=== PATIENT | male | born 1945 | race Caucasian/White ===

== ENCOUNTER → 2024-08-29 | Outpatient (CLI) | payer OTHER, SELFPAY ==
[2024-08-29 13:33] LABS: Opiate Screen,Urine Positive (Negative)
== END | disposition home or self-care (01) ==
LOC: COPL 10:34
PROVIDERS: PCP Family Medicine; Referring Provider Orthopaedic Surgery; Visit Provider Orthopaedic Surgery
DX: Z79.891 Long term (current) use of opiate analgesic (principal)
CPT/HCPCS: 80307

== ENCOUNTER 2024-09-11 13:23 | Outpatient (RCR) | payer MEDICARE, OTHER, SELFPAY ==
[2024-09-10 16:29] LABS: Basophils % (Auto) 0 % (0-2.5); Eosinophils # (Auto) 0.2 Thou/mm3 (0.0-0.5); Eosinophils % (Auto) 2 % (0-10); Hematocrit 48.9 % (41.0-53.0); Hemoglobin 16.8 g/dL (13.5-16.0); Immature Granulocytes % (Auto) 0 % (0-0); Immature Granulocytes Auto 0.02 Thou/mm3 (0.00-0.00); Lymphocytes # (Auto) 1.4 Thou/mm3 (1.0-4.8); Lymphocytes % (Auto) 17 % (10-50); Mean Corpuscular HGB Conc 34.4 g/dl (31.0-37.0); Mean Corpuscular Hemoglobin 31.1 pg (25.0-35.0); Mean Corpuscular Volume 90 fL (80-100); Monocytes # (Auto) 0.8 Thou/mm3 (0.0-0.8); Monocytes % (Auto) 10 % (0-12); Neutrophils # (Auto) 6.1 Thou/mm3 (1.8-7.7); Neutrophils % (Auto) 71 % (37-80); Nucleated Red Blood Cell % 0 /100 WBC (0); Platelet Count 218 Thou/mm3 (140-440); RDW Standard Deviation 43.6 fL (35.1-43.9); Red Blood Count 5.41 Miln/mm3 (4.50-5.90); White Blood Count 8.5 Thou/mm3 (3.8-10.6)
[2024-09-10 17:04] LABS: Carcinoembryonic Antigen 1.6 ng/mL (0.0-5.0)
[2024-09-10 17:05] LABS: Alanine Aminotransferase 20 U/L (10-49); Albumin, Serum 4.1 gm/dL (3.4-4.8); Albumin/Globulin Ratio 1.9 (1.2-2.2); Alkaline Phosphatase 74 U/L (46-116); Anion Gap 8 (7-16); Aspartate Amino Transferase 24 U/L (0-34); BUN/Creatinine Ratio 15 Ratio (12-20); Blood Urea Nitrogen 17 mg/dL (9-23); Calcium 9.4 mg/dL (8.3-10.6); Calcium (Corrected) 9.4 mg/dL (8.5-10.1); Carbon Dioxide 24.7 mMol/L (20.0-31.0); Chloride 104 mMol/L (98-107); Creatinine (Component) 1.1 mg/dL (0.6-1.3); Globulin 2.2 gm/dL (2.3-3.5); Glucose 123 mg/dL (74-106); Osmolality,Calculated 276 (275-295); Potassium 3.3 mMol/L (3.4-5.1); Sodium 137 mMol/L (136-145); Thyroid Stimulating Hormone 1.91 uIU/mL (0.55-4.78); Total Protein 6.3 gm/dL (5.7-8.2); eGFR > 60 See Note
== END 2024-09-27 23:59 | disposition home or self-care (01) ==
LOC: SCTC 13:23
PROVIDERS: PCP Family Medicine; Referring Provider Family Medicine; Visit Provider Internal Medicine Hematology & Oncology
DX: Z51.11 Encounter for antineoplastic chemotherapy (principal); C43.62 Malignant melanoma of left upper limb, including shoulder; D75.1 Secondary polycythemia
CPT/HCPCS: 36591; 80053; 82378; 84443; 85025; 96413; A4216; J1642; J9271

== ENCOUNTER → 2024-10-02 | Outpatient (CLI) | payer MEDICARE, OTHER, SELFPAY ==
[2024-10-02 17:36] LABS: Glucose Estimated Average 126 mg/dL (80-131)
[2024-10-02 17:39] LABS: Anion Gap 8 (7-16); BUN/Creatinine Ratio 18 Ratio (12-20); Blood Urea Nitrogen 21 mg/dL (9-23); Calcium 9.2 mg/dL (8.3-10.6); Carbon Dioxide 29.1 mMol/L (20.0-31.0); Chloride 104 mMol/L (98-107); Creatinine (Component) 1.2 mg/dL (0.6-1.3); Glucose 114 mg/dL (74-106); Osmolality,Calculated 285 (275-295); Potassium 4.1 mMol/L (3.4-5.1); Sodium 141 mMol/L (136-145); eGFR > 60 See Note
== END | disposition home or self-care (01) ==
LOC: COPL 16:29
PROVIDERS: PCP Family Medicine; Referring Provider Family Medicine; Visit Provider Family Medicine
DX: E11.22 Type 2 diabetes mellitus with diabetic chronic kidney disease (principal); N18.2 Chronic kidney disease, stage 2 (mild); E11.65 Type 2 diabetes mellitus with hyperglycemia
CPT/HCPCS: 36415; 80048; 83036

== ENCOUNTER 2024-10-13 06:44 | Day surgery (SDC) | payer MEDICARE, OTHER, SELFPAY ==
[2024-10-09 10:09] VITALS: BMI 26.6
--- NOTE | 2024-10-10 07:00 | EKG_ITS ---
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 : 1945 Requested By: Nish Warner Order Number: [id number] Reading MD: Nish Warner Measurements Intervals [place] Rate: 95 P: 50 NV: 221 QRS: -76 QRSD: 146 T: 74 QT: 358 QTc: 452 Interpretive Statements SINUS RHYTHM WITH FIRST DEGREE AV BLOCK RIGHT BUNDLE BRANCH BLOCK LEFT ANTERIOR FASCICULAR BLOCK POSSIBLE ANTERIOR MYOCARDIAL INFARCTION , OF INDETERMINATE AGE Compared to ECG 09/06/2023 10:25:58 Right bundle-branch block now present Left anterior fascicular block now present Ventricular premature complex(es) no longer present Intraventricular conduction delay no longer present Myocardial infarct finding still present /store/S0/[id number]
[2024-10-10 11:47] LABS: Basophils % (Auto) 0 % (0-2.5); Eosinophils # (Auto) 0.1 Thou/mm3 (0.0-0.5); Eosinophils % (Auto) 1 % (0-10); Hematocrit 49.4 % (41.0-53.0); Hemoglobin 16.9 g/dL (13.5-16.0); Immature Granulocytes % (Auto) 0 % (0-0); Immature Granulocytes Auto 0.03 Thou/mm3 (0.00-0.00); Lymphocytes # (Auto) 1.6 Thou/mm3 (1.0-4.8); Lymphocytes % (Auto) 16 % (10-50); Mean Corpuscular HGB Conc 34.2 g/dl (31.0-37.0); Mean Corpuscular Hemoglobin 31.6 pg (25.0-35.0); Mean Corpuscular Volume 93 fL (80-100); Monocytes # (Auto) 0.9 Thou/mm3 (0.0-0.8); Monocytes % (Auto) 10 % (0-12); Neutrophils # (Auto) 7.1 Thou/mm3 (1.8-7.7); Neutrophils % (Auto) 73 % (37-80); Nucleated Red Blood Cell % 0 /100 WBC (0); Platelet Count 241 Thou/mm3 (140-440); Red Blood Count 5.34 Miln/mm3 (4.50-5.90); White Blood Count 9.8 Thou/mm3 (3.8-10.6)
[2024-10-10 11:58] LABS: Anion Gap 8 (7-16); BUN/Creatinine Ratio 15 Ratio (12-20); Blood Urea Nitrogen 21 mg/dL (9-23); Calcium 9.6 mg/dL (8.3-10.6); Chloride 102 mMol/L (98-107); Creatinine (Component) 1.4 mg/dL (0.6-1.3); Estimated Creatinine Clearance 48.5 mL/min (>60); Glucose 127 mg/dL (74-106); Osmolality,Calculated 280 (275-295); Potassium 4.4 mMol/L (3.4-5.1); Sodium 138 mMol/L (136-145); eGFR 52 See Note
[2024-10-10 11:59] LABS: Partial Thromboplastin Time 25.9 Seconds (22.0-36.0); Prothrombin Time 11.2 Seconds (9.0-12.2)
[2024-10-13] VITALS (13 sets, daily range): BP systolic 117–141; BP diastolic 68–94; PULSE 62–89; RESP 1–22; TEMP 36.4–36.7; O2SAT 95–100
--- NOTE | 2024-10-13 07:31 | CHAP ---
Patient expressed gratitude for prayer before their procedure.
--- NOTE | 2024-10-13 18:54 | ESOP_ITS ---
RE: TOM ANTHONY : 1945 DATE OF OPERATION: 10/13/2024 PROCEDURES PERFORMED: 1. Diagnostic left heart cardiac catheterization, selective coronary angiogram, left ventricular angiogram, CPT 52152. 2. Ultrasound-guided access, right femoral artery. 3. Conscious sedation for 30-minute duration. DIAGNOSES: Coronary artery disease, angina pectoris, shortness of breath, abnormal stress test. HISTORY AND INDICATIONS: Mr. Anthony is a 78-year-old male with known history of mild CKD, stage II, multiple medical problems, hypertension, shortness of breath and exertion. Previous angiogram showed single vessel CAD, coronary angiogram and was recommended to [facility] if he is a candidate for PCI DESCRIPTION OF PROCEDURE: The patient was brought to cardiac catheterization laboratory. He was given 2 mg Versed for sedation 100 mcg of fentanyl. Right radial artery was initially attempted, but is too small or not visualized, hence, right femoral approach was taken. Right femoral artery was cannulated by micropuncture technique. A 5 Vietnamese sheath was introduced. Selective right coronary angiogram performed by 3DRC catheter. Selective left coronary angiogram performed by _ 5-Vietnamese diagnostic catheter. Left heart catheterization and left ventricular angiogram performed by 5-Vietnamese Pigtail catheter. The patient tolerated the procedure well. No complications. Iliofemoral angiogram was performed showed calcification and puncture site _. Manual compression was applied. Cardiac catheterization showed following findings: HEMODYNAMICS: Left ventricular pressure was found to be 124/3, EDP 14 mmHg. Aortic pressure 121/60. No gradient across the aortic valve. Left ventricular angiogram showed normal left ventricular wall motion, ejection fraction of 60%. Coronary artery angiogram showed following findings: Right coronary artery has low takeoff, has mild plaque in the mid and distal segment. No significant stenosis. PDA, PL branches normal. Left coronary system:. Left main coronary artery is normal. Left anterior descending artery showed evidence of moderate 30% to 40% stenosis of the proximal left anterior segment artery. Subsequently, there is an area of 70% to 80% stenosis of the mid left anterior descending artery after tortuous segment and there is definite evidence of myocardial bridging. When there is no bridging, it is about 60% stenosis. When there is bridging, it goes to 80% stenosis. The distal most LAD also showed moderate disease. This appears to be only 2 mm vessel or even less, hence decided to do medical management. Circumflex artery is nondominant, appeared normal. SUMMARY OF FINDINGS: 1. Single-vessel coronary artery disease has evidence of myocardial bridging and moderate to severe 70% to 80% stenosis in mid and distal left anterior descending artery, less than 2 mm diameter, recommending medical management. 2. Normal left ventricular function. RECOMMENDATIONS: The patient is recommended to continue medical management. PCI is not indicated. Prognosis is fair. DT: 08:46:19 TT: 11:15:00 Ref: [id number] - TID: [id number] [facility]
== END 2024-10-13 12:35 | disposition home or self-care (01) ==
PROVIDERS: PCP Family Medicine; Referring Provider Internal Medicine Cardiovascular Disease; Visit Provider Internal Medicine Cardiovascular Disease
PROC: (CPT 93458; principal; 2024-10-13 07:30)
PROC: (CPT 93458; 2024-10-13 07:30)
DX: I25.118 Atherosclerotic heart disease of native coronary artery with other forms of angina pectoris (principal); I12.9 Hypertensive chronic kidney disease with stage 1 through stage 4 chronic kidney disease, or unspecified chronic kidney disease; N18.2 Chronic kidney disease, stage 2 (mild)
CPT/HCPCS: 93458; 36415; 80048; 85025; 85610; 85730; 93005; 99152; 99153; A4649; C1769; C1887; C1894; J0171; J0461; J1643; J2250; J2310; J2371; J3010; J3490; Q9967; A9270; J1644; J2305

== ENCOUNTER 2024-10-15 15:59 | Emergency (ER) | payer MEDICARE, OTHER, SELFPAY ==
[2024-10-15 16:01] VITALS: BMI 26.6
[2024-10-15 16:09] VITALS: BP 114/73; PULSE 95; RESP 18; TEMP 36.9; O2SAT 99
--- NOTE | 2024-10-15 16:18 | XR_ITS ---
Examination: PA lateral chest 2 views TECHNIQUE: Upright PA lateral chest 2 views Exam date and time: October 15, 2024 1628 hours Comparison 07/19/2023 INDICATIONS: Onset chest pain today. FINDINGS: Normal heart size Right internal jugular Port-A-Cath tip SVC No pneumonia or pulmonary edema Prominent reticular thoracic lumbar fusion orthopedic hardware IMPRESSION: No pneumonia or pulmonary edema
--- NOTE | 2024-10-15 16:18 | EKG_ITS ---
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1945 Requested By: Alberto Tate (CANDIDO) Order Number: [id number] Reading MD: Alberto Tate ([employer] FRONT DESK CLERK) Measurements Intervals [place] Rate: 96 P: 57 WI: 226 QRS: -80 QRSD: 130 T: 73 QT: 352 QTc: 446 Interpretive Statements SINUS RHYTHM WITH FIRST DEGREE AV BLOCK RIGHT BUNDLE BRANCH BLOCK [120+ ms QRS DURATION, UPRIGHT V1, 40+ ms S IN I/aVL/V4/V5/V6] LEFT ANTERIOR FASCICULAR BLOCK [QRS AXIS <= -45, QR IN I, RS IN II] POSSIBLE ANTERIOR MYOCARDIAL INFARCTION , OF INDETERMINATE AGE [30 ms Q WAVE IN V3/V4, OR R < 0.2 mV IN V4] Compared to ECG 10/10/2024 10:31:11 No significant changes /store/S0/[id number]/[id number].pdf
--- NOTE | 2024-10-15 16:18 | PD.EDRME ---
Rapid Medical Screening Exam RME Arrival date/time: 10/15/24 15:59 78-year-old male with recent angiogram on Sunday being followed by Dr. Elias at the cancer treatment center currently on tr presents with complaints of rib pain and back pain. Patient believes this may have been caused by being moved onto the table for his procedure Chief Complaint: Shortness of Breath/Dyspnea Vital signs: Vital Signs Temperature 98.5 F 10/15/24 16:09 Pulse Rate 95 10/15/24 16:09 Respiratory Rate 18 10/15/24 16:09 Blood Pressure 114/73 10/15/24 16:09 Pulse Oximetry (%) 99 10/15/24 16:09 Oxygen Delivery Method Room Air 10/15/24 16:09
--- NOTE | 2024-10-15 16:32 | XR_ITS ---
Examination: CTA chest with intravenous contrast 2-D reconstructions 3-D reconstructions, vascular Date and time of exam: October 15, 2024 1810 hrs. Indications: Diagnosis pleuritic malignant melanoma, chest pain beginning 3 days ago, clinical diagnosis pulmonary emboli CTDI: vol (mGy) 19.1 DLP: (mGycm) 435 Technique: Multiple axial sections of the thorax have been obtained. 3 mm slice thickness, from below the hemidiaphragms to above the apices of the lungs. Mediastinal and lung density settings have been obtained. 2-D sagittal and coronal reconstructions. 3-D angiographic renderings, 3-D volume renderings, 3D post processing, vascular maximum intensity projections obtained. Contrast administered is 60 cc Isovue-370. Low dose protocols were performed. One or more of the following dose reduction techniques were used; automated exposure control, adjustment of the mA and/or KV according to patient size, use of iterative reconstruction technique. Findings: No thoracic aortic aneurysm dilatation or dissection Pulmonary artery segments are not enlarged No pulmonary artery emboli No paratracheal tracheobronchial or bronchopulmonary adenopathy 2 mm pulmonary nodule left upper lobe image 79 2 mm pulmonary nodule right upper lobe image 109 4 mm pulmonary nodule right midlung image 157 4 mm pulmonary nodule right lower lobe image 177 No lobar pneumonia or pulmonary edema No visualized liver or splenic lesion Absent gallbladder No pancreatic or adrenal mass Significant bilateral renal parenchymal scar formation Extensive transpedicular lower thoracic lumbar stabilization with chronic compression of T10 Impression: Negative for pulmonary artery emboli Multiple subcentimeter pulmonary nodules, recommend continued 6 month follow-up CT chest without contrast to exclude developing pulmonary nodular metastatic disease
[2024-10-15 16:45] VITALS: BP 127/77; PULSE 93; PULSE 97; RESP 18; TEMP 37.4; O2SAT 97
[2024-10-15] MEDS: RINGERS LACTATED 500 ML 500 ML 999 ML IV (17:12)
--- NOTE | 2024-10-15 17:16 | PD.EDSOB ---
ED SOB =RME/HPI General Chief Complaint: Shortness of Breath/Dyspnea Stated Complaint: Per Dr. Elias possible chest blood clot Time Seen by Provider: 10/15/24 16:31 Arrival date/time: 10/15/24 15:59 RME / HPI RME / HPI Narrative: 10/15/24 15:59 78-year-old male with recent angiogram on Sunday being followed by Dr. Elias at the cancer treatment center currently on [place] presents with complaints of rib pain and back pain. Patient believes this may have been caused by being moved onto the table for his procedure DR. 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 Collins for evaluation of rib cage pain to the left side today. Described as sharp stabbing in sensation, rating as moderate. Worse with taking a deep breath. Mentioned he underwent a procedure by Dr. Long 2 days ago and noted while being transferred from [facility] to procedure table, the tech pulled on him too quickly and since has had pain mostly to the left rib cage/back. No other injuries/trauma reported. Denies fevers, chills, cough, shortness of breath, abdominal pain, rashes, leg swelling, or urinary symptoms. Daughter mentioned patient underwent heart catherization and angiogram by Dr. Long 10/13/2024 and told to continue medical management and PCI not indicated at this time. Related Data Home Medications ?Medication ?Instructions ?Recorded ?Confirmed glimepiride 4 mg tablet (Amaryl) 2 mg PO BID ##0 09/23/12 10/13/24 ezetimibe 10 mg tablet (Zetia) 10 mg PO HS 06/24/20 10/13/24 gabapentin 300 mg capsule 300 mg PO BID 06/24/20 10/13/24 hydrochlorothiazide 25 mg tablet 25 mg PO DAILY 06/24/20 10/13/24 cilostazol 100 mg tablet 100 mg PO BID 06/26/24 10/13/24 lisinopril 10 mg tablet 10 mg PO QDAY 06/26/24 10/13/24 pitavastatin calcium 2 mg tablet 2 mg PO QDAY 06/26/24 10/13/24 (Livalo) dapagliflozin propanediol 10 mg 10 mg PO QDAY 10/13/24 10/13/24 tablet (Farxiga) hydrocodone 5 mg-acetaminophen 325 1 tab PO Q4H PRN Pain 10/13/24 10/13/24 mg tablet Allergies Allergy/AdvReac Type Severity Reaction Status Date / Time Sulfa (Sulfonamide Allergy Intermediate HIVES Verified 10/09/24 10:09 Antibiotics) empagliflozin Allergy Mild Rash Verified 10/09/24 10:09 [From Jardiance] tetracycline Allergy Unknown Rash Verified 10/09/24 10:09 adhesive tape Allergy Redness of Verified 10/09/24 10:09 Skin Review of Systems Review of Systems Narrative Review of Systems: Constitutional: DENIES; Fevers Eyes: DENIES; Loss of vision Head/Ear/Nose: DENIES; Loss of hearing Throat: DENIES; Dysphagia Cardiovascular: SEE HPI +posterior left rib cage pain. DENIES; Chest pain, dyspnea or syncope Respiratory: DENIES; Shortness of breath Gastrointestinal: DENIES; Rectal bleeding or melena. Genitourinary: DENIES; Dysuria (painful or difficult urination) Musculoskeletal: SEE HPI +posterior left rib cage pain. DENIES; Arthralgia (pain in a joint),; Skin: DENIES; Rash Neurological: DENIES; Loss of function or movement Psychiatric: DENIES; recent major life stressor, emotional problem, illicit drug use or abuse Endocrinology: DENIES; Weight change Hematologic/Lymphatic: DENIES; Abnormal bruising Allergic/Immunologic: DENIES; Urticaria (hives) Past Medical History Past Medical History NEUROLOGIC: Positive Neurological Disorders and Head Trauma (brain bleed after fall September/2023) CARDIAC: Positive Cardiac Disorders, Coronary Artery Disease, Atherosclerotic Heart Disease, Peripheral Vascular Disease, Hypercholesterolemia (takes medications, controlled), Edema and Hypertension (takes medications, controlled) GASTROINTESTINAL: Positive Gastrointestinal Disorders and Gall Bladder Disease GENITOURINARY: Positive Genitourinary Disorders, Renal Disease (improving) and Kidney Stones MUSCULOSKELETAL: Positive Musculoskeletal Disorders (left shoulder pain, torn rotater cuff, cant raise arm), Arthritis and Fractures ENT: Positive Cataracts and Head Trauma (brain bleed after fall September/2023) ENDOCRINE: Positive Endocrine Disorders and Diabetes Mellitus Type 2 (takes medication, off of ozempic since 10/08/24) PSYCHO/SOCIAL: Positive Depression OTHER HISTORY: Positive Hospitalization, Falls, Chicken Pox, Measles, Mumps and Cancer (returned melanoma 2023) Family History FAMILY HISTORY: Positive Family Respiratory Disorders, Family Cancer and Family Surgery Surgical History SURGICAL: Positive Cardiac Surgery, Vascular Surgery, Cardiac Catheterization, Angiogram, Eye Surgery, Abdominal Surgery, Amputation (missing left toe) and Vasectomy Social History SMOKING STATUS: Never smoker ED Exam Narrative Physical exam: Physical Exam: General: The vital signs were reviewed. The patient is non-toxic, in no apparent distress and appears healthy with a patent airway, no respiratory distress and has no apparent circulatory problems. Head & Scalp: Normocephalic, atraumatic. Face: Appears normal and is without lesions, deformity. Ears: Left external pinna appears normal. Right external pinna appears normal. Eyes: The sclera is anicteric. No obvious photophobia. The Left and Right Orbit/Lid/Conjunctiva appears normal without swelling, discoloration or injection. Nose: The nose is without deformity, discharge or tenderness; Throat: Appears normal. The mucous membranes are pink and moist without exudates, redness or mass seen. The tongue appears normal. Neck: The neck is supple and no apparent mass or adenopathy. Chest: The chest wall is normal in size and symmetry and has no chest wall tenderness or crepitus. The patient displays normal ventilator effort without retractions, accessory muscle use and has adequate air movement bilaterally with no wheezes and no rales. Cardiovascular: Regular rate and rhythm; No murmurs, rubs, or gallops; Gastrointestinal: The abdomen appears normal. No obvious hernias or mass. The abdomen is soft and benign, non-distended, with no pain, no guarding and no rebound tenderness. Bowel sounds are present and normal sounding. No CVA tenderness. Genitourinary: Back/Spine: Patient was turned over. There is tenderness over the upper lumbar lower flank areas. There is a small streak of red patches without vesicles of uncertain etiology that appears to be above where the pain is located. Extremities/Musculoskeletal/lymphatic: The bilateral upper and lower extremities are warm. There is no evidence of arterial insufficiency. There is no evidence of venous insufficiency/edema. The patient spontaneously moves bilateral upper and lower extremities with no pain and no limitation of movement. There is no apparent, injury or trauma. Skin: The skin is warm, dry and intact. No rashes. No petechia. No purpura. No abnormal bruising. The color is appropriate with no cyanosis. Mental status/Psychiatric: Mental status is appropriate for age. The patient has no apparent delusions, visual hallucinations, no apparent audible hallucinations. The patient has no apparent suicidal thoughts/ideation and no apparent homicidal thoughts/ideation. Neurological: The patient is awake, alert, interactive, cordial, cooperative and is oriented to name and situation. The patient follows commands and answers historical question with no impairment. There is no visual disturbance apparent. The pupils are equal and reactive bilaterally with normal eye movements and no diplopia The bilateral upper and lower extremities have normal strength, normal range of motion and normal functioning. The gait, station and balance appear to be baseline with no acute change Course Quality Measures none Orders Category Date Time Status CT Screening NOW Care 10/15/24 16:32 Active EKG (ED ONLY) *Do not use* NOW Care 10/15/24 16:[address] angio chest Stat Exams 10/15/24 16:32 Taken EKG (ED Only) Stat Exams 10/15/24 16:18 Draft XR chest 2V Stat Exams 10/15/24 16:18 Completed BNP [B-Type Natriuretic Peptide] Stat Lab 10/15/24 16:51 Completed CBC Stat Lab 10/15/24 16:51 Completed Comprehensive Metabolic Panel Stat Lab 10/15/24 16:51 Completed Troponin I Stat Lab 10/15/24 16:51 Completed Ringers Lactated 500 ml [Lactated Ringers] 500 ml Med 10/15/24 16:32 Discontinued IV 999 mls/hr Vital Signs Vital signs: Vital Signs Temperature 98.5 F 10/15/24 16:09 Pulse Rate 95 10/15/24 16:09 Respiratory Rate 18 10/15/24 16:09 Blood Pressure 114/73 10/15/24 16:09 Pulse Oximetry (%) 99 10/15/24 16:09 Oxygen Delivery Method Room Air 10/15/24 16:09 Pulse ox is 99% on room air which is adequate. Shortness of Breath / Dyspnea MDM Narrative MDM Narrative:: Telma Cook am scribing for and in the presence of Dr. [place]. Patient 78-year-old with history of melanoma with local recurrence and then an at node. Years later in the left armpit. Patient recent PET scans evidently are unremarkable. The patient was sent to her by the oncologist concerned about pleuritic chest pain. In reality the patient states he is hurting in his left lower flank the lumbar area and relates this to being tugged or pulled when he was having a procedure done in this recent week. Got no cough no bloody sputum no swelling of the legs and no previous pulmonary emboli.. The oncologist asked for a CTA to rule out PE and this was ordered and is still pending at 1830 hrs. and the care will go to Dr. Jaquez my oncoming doc to sort out the CT results. Patient's creatinine today is 1.5 was 1.4 last time BUN is 20 essentially unchanged. White count is 10.4 hemoglobin is 16.4. Chest x-ray came back with no acute no infiltrates no effusion normal heart. 1800: Patient signed out to Dr. Jaquez, pending CT and final disposition. 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, previous back surgery How is presenting disease/condition affected by chronic disease/condition?: exacerbated by Evaluation data The following diagnostics were reviewed and interpreted by me:: lab results and radiology exam(s) Lab and/or radiology exams considered but not ordered:: None Interpretation Summary: Ordering Physician: Bebeto LOPEZ)Alberto NP Date of Service: 10/15/24 Procedure(s): XR chest 2V Accession Number(s): [id number] cc: Bebeto LOPEZ),Alberto REY; Tae Infante MD~ Examination: PA lateral chest 2 views TECHNIQUE: Upright PA lateral chest 2 views Exam date and time: October 15, 2024 1628 hours Comparison 07/19/2023 INDICATIONS: Onset chest pain today. FINDINGS: Normal heart size Right internal jugular Port-A-Cath tip SVC No pneumonia or pulmonary edema Prominent reticular thoracic lumbar fusion orthopedic hardware IMPRESSION: No pneumonia or pulmonary edema Dictated By: Tae Infante MD Signed By: <Electronically signed by Tae Infante MD in OV> 10/15/24 1643 Medications / Prescriptions Medications or Prescriptions considered but not ordered:: None Medication administrations:: Medication Administration History Discontinued Medications Lactated Ringer's (Lactated Ringers) 500 mls @ 999 mls/hr IV .Q31M ONE Stop: 10/15/24 17:02 Last Admin: 10/15/24 17:12 Dose: 999 mls/hr Documented By: GM See above Consultations Consultation(s) initiated? (list below): No Diagnosis Shortness of Breath Differential Diagnosis: pulmonary embolism and other (Musculoskeletal pain ) Most likely diagnosis given after review of the tests above:: Musculoskeletal back pain but has a history of rods and hardware that have not done well in the past from a surgical standpoint. And has chronic pain. Pulm emboli and metastatic disease are also part of the differential diagnosis Admission Indicated Admission indicated?: not indicated Explain why admission is indicated or not indicated:: Patient signed out pending CT. Admission Request Was there a request for admission?: No Disposition Plan Disposition Plan: other (specify) (Signed out to Dr. Jaquez ) Discharge Plan Prescriptions/Referrals Prescriptions/Med Rec: No Action glimepiride [Amaryl] 4 MG tablet 2 mg PO BID Qty: 0 gabapentin 300 mg Capsule 300 mg PO BID hydrochlorothiazide 25 mg Tablet 25 mg PO DAILY ezetimibe [Zetia] 10 mg Tablet 10 mg PO HS cilostazol 100 mg Tablet 100 mg PO BID lisinopril 10 mg Tablet 10 mg PO QDAY pitavastatin calcium [Livalo] 2 mg Tablet 2 mg PO QDAY hydrocodone-acetaminophen 5-325 mg Tablet 1 tab PO Q4H PRN (Reason: Pain) dapagliflozin propanediol [Farxiga] 10 mg Tablet 10 mg PO QDAY Referrals: Julissa Hendrix MD [Primary Care Provider] - In 1 week Problem List Clinical Impression: Hx of malignant melanoma, Back pain Patient/Caregiver Discharge Instructions Print Language: Mohawk
[2024-10-15 17:17] LABS: Basophils % (Auto) 0 % (0-2.5); Eosinophils # (Auto) 0.3 Thou/mm3 (0.0-0.5); Eosinophils % (Auto) 3 % (0-10); Hematocrit 47.9 % (41.0-53.0); Hemoglobin 16.4 g/dL (13.5-16.0); Immature Granulocytes % (Auto) 0 % (0-0); Immature Granulocytes Auto 0.03 Thou/mm3 (0.00-0.00); Lymphocytes # (Auto) 2.1 Thou/mm3 (1.0-4.8); Lymphocytes % (Auto) 20 % (10-50); Mean Corpuscular HGB Conc 34.2 g/dl (31.0-37.0); Mean Corpuscular Hemoglobin 31.3 pg (25.0-35.0); Mean Corpuscular Volume 91 fL (80-100); Monocytes # (Auto) 1.2 Thou/mm3 (0.0-0.8); Monocytes % (Auto) 12 % (0-12); Neutrophils # (Auto) 6.9 Thou/mm3 (1.8-7.7); Neutrophils % (Auto) 66 % (37-80); Nucleated Red Blood Cell % 0 /100 WBC (0); Platelet Count 219 Thou/mm3 (140-440); RDW Standard Deviation 44.9 fL (35.1-43.9); Red Blood Count 5.24 Miln/mm3 (4.50-5.90); White Blood Count 10.4 Thou/mm3 (3.8-10.6)
[2024-10-15 17:48] LABS: Alanine Aminotransferase 15 U/L (10-49); Albumin, Serum 4.3 gm/dL (3.4-4.8); Alkaline Phosphatase 83 U/L (46-116); Anion Gap 8 (7-16); Aspartate Amino Transferase 21 U/L (0-34); BUN/Creatinine Ratio 13 Ratio (12-20); Bilirubin,Total 0.7 mg/dL (0.3-1.2); Blood Urea Nitrogen 20 mg/dL (9-23); Calcium 9.3 mg/dL (8.3-10.6); Calcium (Corrected) 9.3 mg/dL (8.5-10.1); Carbon Dioxide 26.6 mMol/L (20.0-31.0); Chloride 103 mMol/L (98-107); Creatinine (Component) 1.5 mg/dL (0.6-1.3); Estimated Creatinine Clearance 45.3 mL/min (>60); Globulin 2.1 gm/dL (2.3-3.5); Glucose 160 mg/dL (74-106); Osmolality,Calculated 281 (275-295); Potassium 4.6 mMol/L (3.4-5.1); Sodium 138 mMol/L (136-145); Total Protein 6.4 gm/dL (5.7-8.2); Troponin I < 0.020 ng/mL (0.0-0.045); eGFR 48 See Note
--- NOTE | 2024-10-15 18:01 | PD.EDADDENDU ---
Emergency Room Addendum <Julissa Jaquez MD - Last Filed: 10/15/24 19:31> Addendum Narrative: 1800: Care assumed from Dr. Colorado, the previous shift emergency physician. Past medical, surgical, social and family history reviewed. Vitals and home medications reviewed. I will assume the care of the patient at this time, pending chest CTA and final disposition. Please refer to the emergency department record for history and examination from initial visit.? Physical exam by me shows patient under no acute distress at this time. Lungs: Clear Gen: Alert and oriented Abd: Soft/NT Multiple subcentimeter pulmonary nodules, recommend continued 6 month follow-up CT chest without contrast to exclude developing pulmonary nodular metastatic disease <Darline Cardona - Last Filed: 10/15/24 20:15> Addendum Narrative: 1800: Care assumed from Dr. Colorado, the previous shift emergency physician. Past medical, surgical, social and family history reviewed. Vitals and home medications reviewed. I will assume the care of the patient at this time, pending chest CTA and final disposition. Please refer to the emergency department record for history and examination from initial visit.? Physical exam by me shows patient under no acute distress at this time. Lungs: Clear Gen: Alert and oriented Abd: Soft/NT Multiple subcentimeter pulmonary nodules, recommend continued 6 month follow-up CT chest without contrast to exclude developing pulmonary nodular metastatic disease. Full report below. 2010: Patient remains clinically stable throughout the emergency department visit. Re-assessment at the time of disposition demonstrates that the patient is in no acute distress. We reviewed all the results, analysis, and treatment plans. Patient is amenable to discharge. Strict return precautions were outlined. Patient was discharged in stable condition. RADIOLOGY Procedure(s): CT angio chest Accession Number(s): [id number] cc: Mirza Colorado MD; Tae Infante MD; Julissa Stratton MD~ Examination: CTA chest with intravenous contrast 2-D reconstructions 3-D reconstructions, vascular Date and time of exam: October 15, 2024 1810 hrs. Indications: Diagnosis pleuritic malignant melanoma, chest pain beginning 3 days ago, clinical diagnosis pulmonary emboli CTDI: vol (mGy) 19.1 DLP: (mGycm) 435 Technique: Multiple axial sections of the thorax have been obtained. 3 mm slice thickness, from below the hemidiaphragms to above the apices of the lungs. Mediastinal and lung density settings have been obtained. 2-D sagittal and coronal reconstructions. 3-D angiographic renderings, 3-D volume renderings, 3D post processing, vascular maximum intensity projections obtained. Contrast administered is 60 cc Isovue-370. Low dose protocols were performed. One or more of the following dose reduction techniques were used; automated exposure control, adjustment of the mA and/or KV according to patient size, use of iterative reconstruction technique. Findings: No thoracic aortic aneurysm dilatation or dissection Pulmonary artery segments are not enlarged No pulmonary artery emboli No paratracheal tracheobronchial or bronchopulmonary adenopathy 2 mm pulmonary nodule left upper lobe image 79 2 mm pulmonary nodule right upper lobe image 109 4 mm pulmonary nodule right midlung image 157 4 mm pulmonary nodule right lower lobe image 177 No lobar pneumonia or pulmonary edema No visualized liver or splenic lesion Absent gallbladder No pancreatic or adrenal mass Significant bilateral renal parenchymal scar formation Extensive transpedicular lower thoracic lumbar stabilization with chronic compression of T10 Impression: Negative for pulmonary artery emboli Multiple subcentimeter pulmonary nodules, recommend continued 6 month follow-up CT chest without contrast to exclude developing pulmonary nodular metastatic disease Dictated By: Tae Infante MD
[2024-10-15 18:06] LABS: B-Type Natriuretic Peptide < 20 pg/mL (0-100)
[2024-10-15 18:38] VITALS: BP 119/62; PULSE 84; RESP 17; TEMP 36.8; O2SAT 97
--- NOTE | 2024-10-15 19:09 | PD.EDADDENDU ---
Emergency Room Addendum Addendum Narrative: Patient was signed out [address] Jaquez pending CT report the patient's been comfortable in the department pending disposition
[2024-10-15 20:33] VITALS: BP 110/78; PULSE 89; RESP 19; TEMP 36.7; O2SAT 99
== END 2024-10-15 20:34 | disposition home or self-care (01) ==
PROVIDERS: Nurse Practitioner Primary Care; Emergency Provider Emergency Medicine; PCP Family Medicine
DX: M54.9 Dorsalgia, unspecified (principal); R91.8 Other nonspecific abnormal finding of lung field; I44.0 Atrioventricular block, first degree; I45.10 Unspecified right bundle-branch block; I44.4 Left anterior fascicular block; Z85.820 Personal history of malignant melanoma of skin; I10 Essential (primary) hypertension; E78.00 Pure hypercholesterolemia, unspecified
CPT/HCPCS: 36415; 71046; 71275; 80053; 83880; 84484; 85025; 93005; 96360; 99284; A4649; J7120; Q9967

== ENCOUNTER 2024-10-27 13:50 | Outpatient (RCR) | payer MEDICARE, OTHER, SELFPAY ==
[2024-10-01 16:26] LABS: Basophils # (Auto) 0.1 Thou/mm3 (0.0-0.2); Basophils % (Auto) 1 % (0-2.5); Eosinophils # (Auto) 0.2 Thou/mm3 (0.0-0.5); Eosinophils % (Auto) 2 % (0-10); Hematocrit 47.4 % (41.0-53.0); Hemoglobin 16.3 g/dL (13.5-16.0); Immature Granulocytes % (Auto) 0 % (0-0); Immature Granulocytes Auto 0.03 Thou/mm3 (0.00-0.00); Lymphocytes # (Auto) 2.1 Thou/mm3 (1.0-4.8); Lymphocytes % (Auto) 23 % (10-50); Mean Corpuscular HGB Conc 34.4 g/dl (31.0-37.0); Mean Corpuscular Hemoglobin 31.7 pg (25.0-35.0); Mean Corpuscular Volume 92 fL (80-100); Monocytes % (Auto) 11 % (0-12); Neutrophils # (Auto) 5.5 Thou/mm3 (1.8-7.7); Neutrophils % (Auto) 63 % (37-80); Nucleated Red Blood Cell % 0 /100 WBC (0); Platelet Count 241 Thou/mm3 (140-440); RDW Standard Deviation 45.5 fL (35.1-43.9); Red Blood Count 5.15 Miln/mm3 (4.50-5.90); White Blood Count 8.9 Thou/mm3 (3.8-10.6)
[2024-10-01 16:58] LABS: Alanine Aminotransferase 19 U/L (10-49); Albumin, Serum 4.1 gm/dL (3.4-4.8); Albumin/Globulin Ratio 2.1 (1.2-2.2); Alkaline Phosphatase 86 U/L (46-116); Anion Gap 9 (7-16); Aspartate Amino Transferase 27 U/L (0-34); BUN/Creatinine Ratio 15 Ratio (12-20); Bilirubin,Total 0.5 mg/dL (0.3-1.2); Blood Urea Nitrogen 19 mg/dL (9-23); Calcium 9.1 mg/dL (8.3-10.6); Calcium (Corrected) 9.1 mg/dL (8.5-10.1); Carbon Dioxide 26.5 mMol/L (20.0-31.0); Chloride 103 mMol/L (98-107); Creatinine (Component) 1.3 mg/dL (0.6-1.3); Glucose 140 mg/dL (74-106); Osmolality,Calculated 279 (275-295); Potassium 3.9 mMol/L (3.4-5.1); Sodium 138 mMol/L (136-145); Thyroid Stimulating Hormone 2.07 uIU/mL (0.55-4.78); Total Protein 6.1 gm/dL (5.7-8.2); eGFR 57 See Note
[2024-10-23 10:31] LABS: Basophils % (Auto) 1 % (0-2.5); Eosinophils # (Auto) 0.2 Thou/mm3 (0.0-0.5); Eosinophils % (Auto) 2 % (0-10); Hematocrit 46.9 % (41.0-53.0); Immature Granulocytes % (Auto) 0 % (0-0); Immature Granulocytes Auto 0.02 Thou/mm3 (0.00-0.00); Lymphocytes # (Auto) 1.9 Thou/mm3 (1.0-4.8); Lymphocytes % (Auto) 22 % (10-50); Mean Corpuscular HGB Conc 34.1 g/dl (31.0-37.0); Mean Corpuscular Hemoglobin 31.2 pg (25.0-35.0); Mean Corpuscular Volume 91 fL (80-100); Monocytes # (Auto) 0.9 Thou/mm3 (0.0-0.8); Monocytes % (Auto) 10 % (0-12); Neutrophils # (Auto) 5.5 Thou/mm3 (1.8-7.7); Neutrophils % (Auto) 65 % (37-80); Nucleated Red Blood Cell % 0 /100 WBC (0); Platelet Count 268 Thou/mm3 (140-440); RDW Standard Deviation 43.9 fL (35.1-43.9); Red Blood Count 5.13 Miln/mm3 (4.50-5.90); White Blood Count 8.5 Thou/mm3 (3.8-10.6)
[2024-10-23 10:51] LABS: Carcinoembryonic Antigen 2.2 ng/mL (0.0-5.0)
[2024-10-23 11:29] LABS: Alanine Aminotransferase 17 U/L (10-49); Albumin, Serum 4.2 gm/dL (3.4-4.8); Alkaline Phosphatase 77 U/L (46-116); Anion Gap 8 (7-16); Aspartate Amino Transferase 19 U/L (0-34); BUN/Creatinine Ratio 13 Ratio (12-20); Bilirubin,Total 0.6 mg/dL (0.3-1.2); Blood Urea Nitrogen 16 mg/dL (9-23); Calcium 9.2 mg/dL (8.3-10.6); Calcium (Corrected) 9.2 mg/dL (8.5-10.1); Carbon Dioxide 26.5 mMol/L (20.0-31.0); Chloride 105 mMol/L (98-107); Creatinine (Component) 1.2 mg/dL (0.6-1.3); Free T4 (Free Thyroxine) 1.04 ng/dL (0.89-1.76); Globulin 2.1 gm/dL (2.3-3.5); Glucose 194 mg/dL (74-106); Osmolality,Calculated 283 (275-295); Potassium 3.7 mMol/L (3.4-5.1); Sodium 139 mMol/L (136-145); Thyroid Stimulating Hormone 4.33 uIU/mL (0.55-4.78); Total Protein 6.3 gm/dL (5.7-8.2); eGFR > 60 See Note
[2024-10-27 14:25] LABS: Basophils % (Auto) 1 % (0-2.5); Eosinophils # (Auto) 0.3 Thou/mm3 (0.0-0.5); Eosinophils % (Auto) 3 % (0-10); Hematocrit 47.4 % (41.0-53.0); Hemoglobin 16.1 g/dL (13.5-16.0); Immature Granulocytes % (Auto) 0 % (0-0); Immature Granulocytes Auto 0.02 Thou/mm3 (0.00-0.00); Lymphocytes # (Auto) 2.2 Thou/mm3 (1.0-4.8); Lymphocytes % (Auto) 25 % (10-50); Mean Corpuscular Hemoglobin 31.4 pg (25.0-35.0); Mean Corpuscular Volume 93 fL (80-100); Monocytes % (Auto) 12 % (0-12); Neutrophils # (Auto) 5.3 Thou/mm3 (1.8-7.7); Neutrophils % (Auto) 60 % (37-80); Nucleated Red Blood Cell % 0 /100 WBC (0); Platelet Count 267 Thou/mm3 (140-440); RDW Standard Deviation 44.3 fL (35.1-43.9); Red Blood Count 5.12 Miln/mm3 (4.50-5.90); White Blood Count 8.8 Thou/mm3 (3.8-10.6)
--- NOTE | 2024-11-03 23:15 | CTCFLWUP_ITS ---
Patient: TOM MEEKS : 1945 Page 6 of 7 FOLLOW UP NOTE DATE OF SERVICE: 10/15/2024 NAME: TOM MEEKS ACCOUNT: [id number] : 1945 AGE: 78 INTERVAL HISTORY: Patient is doing well and he is here to discuss PET CT scan. 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 August 2020: Patent noticed a dark irregular margined lesion in the left upper back. 09/28/2020: Patient had shave biopsy of the lesion from the left superior lateral upper back. 10/19/2020: Wide excision of the left superior lateral upper back? 12/07/2020: PET CT scan? 12/08/2020: left axillary ultrasound? 12/08/2020: Ultrasound of the soft tissue of the left neck? 01/03/2021: Ultrasound-guided biopsy of the left axilla lymph node as well as left submental lymph node ? 05/10/2021: Left breast ultrasound? 06/01/2021: PET CT scan? 01/29/2024: CT scan of the brain without contrast? 02/14/2024: PET/CT scan? 04/02/2024: Mr. Meeks had ultrasound-guided percutaneous biopsy of soft tissue mass posterior lateral left shoulder OTHER MEDICAL HISTORY/CONDITIONS: FAMILY HISTORY: ?Clone Family Hx? SOCIAL HISTORY: MEDICATIONS: 1. cilostazol - 50 mg 1 tab Twice a Day 2. doxycycline hyclate - 100 mg 1 tab twice daily 3. ezetimibe - 10 mg 1 tab Daily 4. Farxiga - 10 mg 1 tab Each Day 5. gabapentin - 300 mg 1 tab Twice a Day 6. glimepiride - 2 mg tab Daily 7. HYDROcodone-acetaminophen - 7.5-325 mg 0.5 tab Twice a Day 8. Livalo - 2 mg 1 tab Daily 9. Ozempic - 1 mg/dose (2 mg/1.5 mL) 1 Weekly 10. vitamin B-nbibmbabsykz-wdrjzxd - 500 mg 1 tab Daily?Palabra Meds? Medications Last Reconciled by Ximena Duke MA on 10/15/2024 ALLERGIES: SULFADIAZINE REVIEW OF SYSTEMS: A complete 14-point review of systems was performed and is negative except as noted in interval histo ry. PHYSICAL EXAMINATION:?CloneBlock PE? VITAL SIGNS: Temperature?98.2, B/P?103/65, Oxygen?Saturation?99% PAIN: 2 - Mild pain ECOG Performance Status: 0 - Asymptomatic and fully active Conjunctivae is pink. Oral cavity is dry. Posterior pharyngeal wall appears normal. No erythema or mass lesions noted. A 1 cm lymph node is palpable in left axilla he has very well-healed scar in the left scapular region. Chest clear to auscultation. No wheezes o r rales audible. Abdomen is soft no hepatosplenomegaly palpable. Extremities no clubbing or cyanosis noted. 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 S/p shave biopsy followed by wide excision. Patient: TOM Maradiaga : 1945 Page 7 of 7 patient is s/p resection of intrasnsit melanom a . . Oligometastatic disease PET CT scan since 02/14/2024) showed 2 lesions in the posterior left caridad ulder. Biopsy was positive for melanoma. [facility] Dr. Hans De Leon follows patient patient '5 recent P ET SCAN shows showed a 15 mm hypermetabolic nodule posterior to the left upper humerus. Left axilla l ymph node was not active on pet scan but is palpable It was biopsied in 2020 but was inconclusive I w ill like the patient to have excisional biopsy of axillary lymph node with his rand butter to make sure it is not melanoma - labs are stable and will proceed with lnnumotherapy - new labs ordered befo re immunotherapy cont keytruda patient is okay to get and do not need to hold keytruda PET CT scan discussed and have no metastatic disease polycythemia likely from hypoxia ordered bharath-2 and epo level which are both negative Phlebotomize 1 unit to keep hematocrit below 45 TSH T4 X-ray chest PA lateral CBC CMP RETURN TO CLINIC: I will see him back in the clinic in 2 months. BILLING AND COMPLIANCE: I reviewed external records from providers outside my specialty as summarized above. I spent a total of 50 minutes on this patient?s care on the day of their visit excluding time spent related to any bi lled procedures. This time includes time spent with the patient as well as time spent documenting in the medical record, reviewing patients records and tests, obtaining history, placing orders, communi cating with other healthcare professionals, counseling the patient, family or caregiver, and/or care coordination for the diagnoses above. Electronically Signed by: Nick Collins MD T: 11:13 PM CC: Van?Rosibel,? PCP: Julissa Kimbrough Referring: Julissa Kimbrough This document was completed utilizing speech recognition software. Grammatical errors, random word in sertions, pronoun errors, and incomplete sentences are an occasional consequence of this system due t o software limitations, ambient noise, and hardware issues. Any formal questions or concerns about th e content, text or information contained within the body of this dictation should be directly address ed to the provider for clarification.
== END 2024-10-28 23:59 | disposition home or self-care (01) ==
LOC: SCTC 13:50
PROVIDERS: PCP Family Medicine; Referring Provider Family Medicine; Visit Provider Internal Medicine Hematology & Oncology
DX: Z51.11 Encounter for antineoplastic chemotherapy (principal); C43.62 Malignant melanoma of left upper limb, including shoulder; D75.1 Secondary polycythemia
CPT/HCPCS: 36591; 80053; 82378; 84439; 84443; 85025; 96413; 99195; 99212; A4216; J1642; J7040; J9271; G0463

== ENCOUNTER 2024-11-25 08:49 | Outpatient (RCR) | payer MEDICARE, OTHER, SELFPAY ==
[2024-11-03 16:15] LABS: Basophils % (Auto) 0 % (0-2.5); Eosinophils # (Auto) 0.2 Thou/mm3 (0.0-0.5); Eosinophils % (Auto) 2 % (0-10); Hematocrit 47.4 % (41.0-53.0); Hemoglobin 15.8 g/dL (13.5-16.0); Immature Granulocytes % (Auto) 0 % (0-0); Immature Granulocytes Auto 0.03 Thou/mm3 (0.00-0.00); Lymphocytes # (Auto) 1.7 Thou/mm3 (1.0-4.8); Lymphocytes % (Auto) 19 % (10-50); Mean Corpuscular HGB Conc 33.3 g/dl (31.0-37.0); Mean Corpuscular Hemoglobin 30.9 pg (25.0-35.0); Mean Corpuscular Volume 93 fL (80-100); Monocytes # (Auto) 0.9 Thou/mm3 (0.0-0.8); Monocytes % (Auto) 11 % (0-12); Neutrophils % (Auto) 67 % (37-80); Nucleated Red Blood Cell % 0 /100 WBC (0); Platelet Count 254 Thou/mm3 (140-440); RDW Standard Deviation 44.7 fL (35.1-43.9); Red Blood Count 5.11 Miln/mm3 (4.50-5.90)
[2024-11-03 16:37] LABS: Alanine Aminotransferase 19 U/L (10-49); Albumin, Serum 4.1 gm/dL (3.4-4.8); Albumin/Globulin Ratio 1.6 (1.2-2.2); Alkaline Phosphatase 85 U/L (46-116); Anion Gap 10 (7-16); Aspartate Amino Transferase 25 U/L (0-34); BUN/Creatinine Ratio 17 Ratio (12-20); Bilirubin,Total 0.8 mg/dL (0.3-1.2); Blood Urea Nitrogen 20 mg/dL (9-23); Calcium 9.4 mg/dL (8.3-10.6); Calcium (Corrected) 9.4 mg/dL (8.5-10.1); Carbon Dioxide 26.5 mMol/L (20.0-31.0); Chloride 104 mMol/L (98-107); Creatinine (Component) 1.2 mg/dL (0.6-1.3); Globulin 2.5 gm/dL (2.3-3.5); Glucose 144 mg/dL (74-106); Osmolality,Calculated 285 (275-295); Potassium 4.1 mMol/L (3.4-5.1); Sodium 140 mMol/L (136-145); Thyroid Stimulating Hormone 2.49 uIU/mL (0.55-4.78); Total Protein 6.6 gm/dL (5.7-8.2); eGFR > 60 See Note
[2024-11-04 17:45] LABS: Carcinoembryonic Antigen 2.8 ng/mL (0.0-5.0)
[2024-11-10 14:09] LABS: Basophils % (Auto) 0 % (0-2.5); Eosinophils # (Auto) 0.2 Thou/mm3 (0.0-0.5); Eosinophils % (Auto) 3 % (0-10); Hematocrit 44.2 % (41.0-53.0); Hemoglobin 14.8 g/dL (13.5-16.0); Immature Granulocytes % (Auto) 0 % (0-0); Immature Granulocytes Auto 0.02 Thou/mm3 (0.00-0.00); Lymphocytes # (Auto) 1.6 Thou/mm3 (1.0-4.8); Lymphocytes % (Auto) 19 % (10-50); Mean Corpuscular HGB Conc 33.5 g/dl (31.0-37.0); Mean Corpuscular Volume 93 fL (80-100); Monocytes # (Auto) 0.8 Thou/mm3 (0.0-0.8); Monocytes % (Auto) 9 % (0-12); Neutrophils # (Auto) 5.9 Thou/mm3 (1.8-7.7); Neutrophils % (Auto) 69 % (37-80); Nucleated Red Blood Cell % 0 /100 WBC (0); Platelet Count 236 Thou/mm3 (140-440); RDW Standard Deviation 44.5 fL (35.1-43.9); Red Blood Count 4.78 Miln/mm3 (4.50-5.90); White Blood Count 8.5 Thou/mm3 (3.8-10.6)
[2024-11-10 14:29] LABS: Alanine Aminotransferase 17 U/L (10-49); Albumin, Serum 3.9 gm/dL (3.4-4.8); Albumin/Globulin Ratio 1.7 (1.2-2.2); Alkaline Phosphatase 88 U/L (46-116); Anion Gap 12 (7-16); Aspartate Amino Transferase 22 U/L (0-34); BUN/Creatinine Ratio 15 Ratio (12-20); Bilirubin,Total 0.6 mg/dL (0.3-1.2); Blood Urea Nitrogen 16 mg/dL (9-23); Calcium 9.2 mg/dL (8.3-10.6); Calcium (Corrected) 9.3 mg/dL (8.5-10.1); Carbon Dioxide 23.2 mMol/L (20.0-31.0); Chloride 104 mMol/L (98-107); Creatinine (Component) 1.1 mg/dL (0.6-1.3); Globulin 2.3 gm/dL (2.3-3.5); Glucose 196 mg/dL (74-106); Osmolality,Calculated 283 (275-295); Potassium 3.7 mMol/L (3.4-5.1); Sodium 139 mMol/L (136-145); Thyroid Stimulating Hormone 1.77 uIU/mL (0.55-4.78); Total Protein 6.2 gm/dL (5.7-8.2); eGFR > 60 See Note
[2024-11-10 18:33] LABS: Carcinoembryonic Antigen 2.6 ng/mL (0.0-5.0)
[2024-11-18 09:25] LABS: Basophils # (Auto) 0.1 Thou/mm3 (0.0-0.2); Basophils % (Auto) 1 % (0-2.5); Eosinophils # (Auto) 0.2 Thou/mm3 (0.0-0.5); Eosinophils % (Auto) 2 % (0-10); Hematocrit 44.8 % (41.0-53.0); Hemoglobin 15.3 g/dL (13.5-16.0); Immature Granulocytes % (Auto) 0 % (0-0); Immature Granulocytes Auto 0.03 Thou/mm3 (0.00-0.00); Lymphocytes # (Auto) 1.6 Thou/mm3 (1.0-4.8); Lymphocytes % (Auto) 17 % (10-50); Mean Corpuscular HGB Conc 34.2 g/dl (31.0-37.0); Mean Corpuscular Hemoglobin 31.1 pg (25.0-35.0); Mean Corpuscular Volume 91 fL (80-100); Monocytes # (Auto) 0.8 Thou/mm3 (0.0-0.8); Monocytes % (Auto) 9 % (0-12); Neutrophils # (Auto) 6.4 Thou/mm3 (1.8-7.7); Neutrophils % (Auto) 71 % (37-80); Nucleated Red Blood Cell % 0 /100 WBC (0); Platelet Count 239 Thou/mm3 (140-440); RDW Standard Deviation 43.9 fL (35.1-43.9); Red Blood Count 4.92 Miln/mm3 (4.50-5.90); White Blood Count 9.1 Thou/mm3 (3.8-10.6)
[2024-11-18 09:49] LABS: Alanine Aminotransferase 12 U/L (10-49); Albumin, Serum 4.2 gm/dL (3.4-4.8); Albumin/Globulin Ratio 1.8 (1.2-2.2); Alkaline Phosphatase 92 U/L (46-116); Anion Gap 10 (7-16); Aspartate Amino Transferase 16 U/L (0-34); BUN/Creatinine Ratio 16 Ratio (12-20); Bilirubin,Total 0.7 mg/dL (0.3-1.2); Blood Urea Nitrogen 18 mg/dL (9-23); Calcium 9.4 mg/dL (8.3-10.6); Calcium (Corrected) 9.4 mg/dL (8.5-10.1); Carbon Dioxide 25.8 mMol/L (20.0-31.0); Chloride 103 mMol/L (98-107); Creatinine (Component) 1.1 mg/dL (0.6-1.3); Globulin 2.4 gm/dL (2.3-3.5); Glucose 158 mg/dL (74-106); Osmolality,Calculated 282 (275-295); Potassium 4.2 mMol/L (3.4-5.1); Sodium 139 mMol/L (136-145); Total Protein 6.6 gm/dL (5.7-8.2); eGFR > 60 See Note
[2024-11-25 09:43] LABS: Basophils % (Auto) 0 % (0-2.5); Eosinophils # (Auto) 0.2 Thou/mm3 (0.0-0.5); Eosinophils % (Auto) 2 % (0-10); Hematocrit 45.7 % (41.0-53.0); Hemoglobin 15.4 g/dL (13.5-16.0); Immature Granulocytes % (Auto) 0 % (0-0); Immature Granulocytes Auto 0.04 Thou/mm3 (0.00-0.00); Lymphocytes # (Auto) 1.1 Thou/mm3 (1.0-4.8); Lymphocytes % (Auto) 10 % (10-50); Mean Corpuscular HGB Conc 33.7 g/dl (31.0-37.0); Mean Corpuscular Hemoglobin 30.9 pg (25.0-35.0); Mean Corpuscular Volume 92 fL (80-100); Monocytes # (Auto) 0.9 Thou/mm3 (0.0-0.8); Monocytes % (Auto) 8 % (0-12); Neutrophils # (Auto) 8.4 Thou/mm3 (1.8-7.7); Neutrophils % (Auto) 79 % (37-80); Nucleated Red Blood Cell % 0 /100 WBC (0); Platelet Count 256 Thou/mm3 (140-440); RDW Standard Deviation 43.4 fL (35.1-43.9); Red Blood Count 4.99 Miln/mm3 (4.50-5.90); White Blood Count 10.6 Thou/mm3 (3.8-10.6)
== END 2024-11-28 23:59 | disposition home or self-care (01) ==
LOC: SCTC 08:49
PROVIDERS: PCP Family Medicine; Referring Provider Family Medicine; Visit Provider Internal Medicine Hematology & Oncology
DX: Z51.11 Encounter for antineoplastic chemotherapy (principal); C43.62 Malignant melanoma of left upper limb, including shoulder
CPT/HCPCS: 36591; 80053; 82378; 84443; 85025; 96360; 96413; 99195; A4216; J1642; J9271

== ENCOUNTER → 2024-11-27 | Outpatient (CLI) | payer MEDICARE, OTHER, SELFPAY ==
[2024-11-27 15:19] LABS: Collection Type, Urine Clean Catch; Squamous Epithelial Cell,Urine 0 /hpf (0-5); WBC,Urine 0 /hpf (0-5)
[2024-11-27 16:11] LABS: Bacteria,Urine Rare; Bilirubin,Urine Negative (Negative); Blood,Urine Negative (Negative); Clarity,Urine Clear (Clear/Hazy); Color,Urine Yellow (Lt Yel-Yel); Glucose, Urine 4+ (Negative); Ketones,Urine Trace (Negative); Leukocyte Esterase,Urine Negative (Negative); Nitrite,Urine Negative (Negative); PH,Urine 5.5 (5.0-7.0); Protein,Urine Negative (Neg - Trace); RBC,Urine 1 /hpf (0-3); Specific Gravity,Urine 1.032 (1.001-1.035); Urobilinogen,Urine Negative mg/dL (0.0-1.0)
== END | disposition home or self-care (01) ==
LOC: SLDO 15:13
PROVIDERS: PCP Family Medicine; Referring Provider Family Medicine; Visit Provider Family Medicine
DX: N30.00 Acute cystitis without hematuria (principal)
CPT/HCPCS: 81001; 87086

== ENCOUNTER 2024-12-25 12:56 | Outpatient (RCR) | payer MEDICARE, OTHER, SELFPAY ==
[2024-12-02 10:57] LABS: Basophils % (Auto) 0 % (0-2.5); Eosinophils # (Auto) 0.3 Thou/mm3 (0.0-0.5); Eosinophils % (Auto) 3 % (0-10); Hematocrit 43.9 % (41.0-53.0); Hemoglobin 14.9 g/dL (13.5-16.0); Immature Granulocytes % (Auto) 0 % (0-0); Immature Granulocytes Auto 0.02 Thou/mm3 (0.00-0.00); Lymphocytes # (Auto) 1.8 Thou/mm3 (1.0-4.8); Lymphocytes % (Auto) 20 % (10-50); Mean Corpuscular HGB Conc 33.9 g/dl (31.0-37.0); Mean Corpuscular Hemoglobin 31.1 pg (25.0-35.0); Mean Corpuscular Volume 92 fL (80-100); Monocytes # (Auto) 0.9 Thou/mm3 (0.0-0.8); Monocytes % (Auto) 10 % (0-12); Neutrophils # (Auto) 5.9 Thou/mm3 (1.8-7.7); Neutrophils % (Auto) 66 % (37-80); Nucleated Red Blood Cell % 0 /100 WBC (0); Platelet Count 253 Thou/mm3 (140-440); RDW Standard Deviation 43.1 fL (35.1-43.9); Red Blood Count 4.79 Miln/mm3 (4.50-5.90)
[2024-12-02 11:17] LABS: Alanine Aminotransferase 16 U/L (10-49); Albumin, Serum 3.9 gm/dL (3.4-4.8); Albumin/Globulin Ratio 1.6 (1.2-2.2); Alkaline Phosphatase 77 U/L (46-116); Anion Gap 9 (7-16); Aspartate Amino Transferase 21 U/L (0-34); BUN/Creatinine Ratio 15 Ratio (12-20); Bilirubin,Total 0.8 mg/dL (0.3-1.2); Blood Urea Nitrogen 16 mg/dL (9-23); Calcium 9.2 mg/dL (8.3-10.6); Calcium (Corrected) 9.3 mg/dL (8.5-10.1); Carbon Dioxide 26.2 mMol/L (20.0-31.0); Carcinoembryonic Antigen 2.2 ng/mL (0.0-5.0); Chloride 102 mMol/L (98-107); Creatinine (Component) 1.1 mg/dL (0.6-1.3); Globulin 2.4 gm/dL (2.3-3.5); Glucose 103 mg/dL (74-106); Osmolality,Calculated 275 (275-295); Sodium 137 mMol/L (136-145); Total Protein 6.3 gm/dL (5.7-8.2); eGFR > 60 See Note
[2024-12-09 14:30] LABS: Basophils # (Auto) 0.1 Thou/mm3 (0.0-0.2); Basophils % (Auto) 1 % (0-2.5); Eosinophils # (Auto) 0.5 Thou/mm3 (0.0-0.5); Eosinophils % (Auto) 5 % (0-10); Hematocrit 44.4 % (41.0-53.0); Hemoglobin 15.1 g/dL (13.5-16.0); Immature Granulocytes % (Auto) 0 % (0-0); Immature Granulocytes Auto 0.03 Thou/mm3 (0.00-0.00); Lymphocytes # (Auto) 1.8 Thou/mm3 (1.0-4.8); Lymphocytes % (Auto) 21 % (10-50); Mean Corpuscular Hemoglobin 30.8 pg (25.0-35.0); Mean Corpuscular Volume 90 fL (80-100); Monocytes # (Auto) 0.9 Thou/mm3 (0.0-0.8); Monocytes % (Auto) 11 % (0-12); Neutrophils # (Auto) 5.5 Thou/mm3 (1.8-7.7); Neutrophils % (Auto) 62 % (37-80); Nucleated Red Blood Cell % 0 /100 WBC (0); Platelet Count 267 Thou/mm3 (140-440); RDW Standard Deviation 42.2 fL (35.1-43.9); Red Blood Count 4.91 Miln/mm3 (4.50-5.90); White Blood Count 8.8 Thou/mm3 (3.8-10.6)
[2024-12-09 14:43] LABS: Alanine Aminotransferase 15 U/L (10-49); Albumin, Serum 4.1 gm/dL (3.4-4.8); Albumin/Globulin Ratio 1.9 (1.2-2.2); Alkaline Phosphatase 77 U/L (46-116); Anion Gap 7 (7-16); Aspartate Amino Transferase 20 U/L (0-34); BUN/Creatinine Ratio 17 Ratio (12-20); Bilirubin,Total 0.6 mg/dL (0.3-1.2); Blood Urea Nitrogen 20 mg/dL (9-23); Calcium 9.6 mg/dL (8.3-10.6); Calcium (Corrected) 9.6 mg/dL (8.5-10.1); Chloride 103 mMol/L (98-107); Creatinine (Component) 1.2 mg/dL (0.6-1.3); Globulin 2.2 gm/dL (2.3-3.5); Glucose 180 mg/dL (74-106); Osmolality,Calculated 281 (275-295); Potassium 3.8 mMol/L (3.4-5.1); Sodium 137 mMol/L (136-145); Total Protein 6.3 gm/dL (5.7-8.2); eGFR > 60 See Note
[2024-12-16 14:49] LABS: Basophils % (Auto) 0 % (0-2.5); Eosinophils # (Auto) 0.3 Thou/mm3 (0.0-0.5); Eosinophils % (Auto) 3 % (0-10); Hematocrit 45.1 % (41.0-53.0); Hemoglobin 15.5 g/dL (13.5-16.0); Immature Granulocytes % (Auto) 0 % (0-0); Immature Granulocytes Auto 0.04 Thou/mm3 (0.00-0.00); Lymphocytes # (Auto) 1.8 Thou/mm3 (1.0-4.8); Lymphocytes % (Auto) 16 % (10-50); Mean Corpuscular HGB Conc 34.4 g/dl (31.0-37.0); Mean Corpuscular Hemoglobin 31.3 pg (25.0-35.0); Mean Corpuscular Volume 91 fL (80-100); Monocytes # (Auto) 1.1 Thou/mm3 (0.0-0.8); Monocytes % (Auto) 10 % (0-12); Neutrophils # (Auto) 7.8 Thou/mm3 (1.8-7.7); Neutrophils % (Auto) 71 % (37-80); Nucleated Red Blood Cell % 0 /100 WBC (0); Platelet Count 244 Thou/mm3 (140-440); RDW Standard Deviation 42.1 fL (35.1-43.9); Red Blood Count 4.95 Miln/mm3 (4.50-5.90)
[2024-12-16 15:06] LABS: Alanine Aminotransferase 18 U/L (10-49); Albumin/Globulin Ratio 1.7 (1.2-2.2); Alkaline Phosphatase 79 U/L (46-116); Anion Gap 9 (7-16); Aspartate Amino Transferase 21 U/L (0-34); BUN/Creatinine Ratio 18 Ratio (12-20); Bilirubin,Total 0.6 mg/dL (0.3-1.2); Blood Urea Nitrogen 21 mg/dL (9-23); Calcium 9.3 mg/dL (8.3-10.6); Calcium (Corrected) 9.3 mg/dL (8.5-10.1); Carbon Dioxide 27.6 mMol/L (20.0-31.0); Chloride 102 mMol/L (98-107); Creatinine (Component) 1.2 mg/dL (0.6-1.3); Globulin 2.3 gm/dL (2.3-3.5); Glucose 142 mg/dL (74-106); Osmolality,Calculated 282 (275-295); Potassium 3.8 mMol/L (3.4-5.1); Sodium 139 mMol/L (136-145); Total Protein 6.3 gm/dL (5.7-8.2); eGFR > 60 See Note
[2024-12-23 14:32] LABS: Basophils # (Auto) 0.1 Thou/mm3 (0.0-0.2); Basophils % (Auto) 1 % (0-2.5); Eosinophils # (Auto) 0.4 Thou/mm3 (0.0-0.5); Eosinophils % (Auto) 5 % (0-10); Hematocrit 43.2 % (41.0-53.0); Hemoglobin 14.9 g/dL (13.5-16.0); Immature Granulocytes % (Auto) 0 % (0-0); Immature Granulocytes Auto 0.03 Thou/mm3 (0.00-0.00); Lymphocytes # (Auto) 1.7 Thou/mm3 (1.0-4.8); Lymphocytes % (Auto) 19 % (10-50); Mean Corpuscular HGB Conc 34.5 g/dl (31.0-37.0); Mean Corpuscular Hemoglobin 31.5 pg (25.0-35.0); Mean Corpuscular Volume 91 fL (80-100); Monocytes # (Auto) 0.9 Thou/mm3 (0.0-0.8); Monocytes % (Auto) 10 % (0-12); Neutrophils # (Auto) 6.1 Thou/mm3 (1.8-7.7); Neutrophils % (Auto) 66 % (37-80); Nucleated Red Blood Cell % 0 /100 WBC (0); Platelet Count 223 Thou/mm3 (140-440); RDW Standard Deviation 42.5 fL (35.1-43.9); Red Blood Count 4.73 Miln/mm3 (4.50-5.90); White Blood Count 9.2 Thou/mm3 (3.8-10.6)
[2024-12-23 14:53] LABS: Alanine Aminotransferase 14 U/L (10-49); Albumin/Globulin Ratio 1.8 (1.2-2.2); Alkaline Phosphatase 83 U/L (46-116); Anion Gap 9 (7-16); Aspartate Amino Transferase 20 U/L (0-34); BUN/Creatinine Ratio 17 Ratio (12-20); Bilirubin,Total 0.7 mg/dL (0.3-1.2); Blood Urea Nitrogen 20 mg/dL (9-23); Calcium 9.2 mg/dL (8.3-10.6); Calcium (Corrected) 9.2 mg/dL (8.5-10.1); Carbon Dioxide 24.9 mMol/L (20.0-31.0); Chloride 108 mMol/L (98-107); Creatinine (Component) 1.2 mg/dL (0.6-1.3); Globulin 2.2 gm/dL (2.3-3.5); Glucose 140 mg/dL (74-106); Osmolality,Calculated 287 (275-295); Sodium 142 mMol/L (136-145); Thyroid Stimulating Hormone 1.65 uIU/mL (0.55-4.78); Total Protein 6.2 gm/dL (5.7-8.2); eGFR > 60 See Note
--- NOTE | 2024-12-29 01:06 | CTCFLWUP_ITS ---
Patient: TOM MEEKS : 1945 Page 6 of 7 FOLLOW UP NOTE DATE OF SERVICE: 12/24/2024 NAME: TOM MEEKS ACCOUNT: [id number] : 1945 AGE: 79 INTERVAL HISTORY: Patient is doing well ONCOLOGY HISTORY:?CloneBlock Oncology Hx? 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 August 2020: Patent noticed a dark irregular margined lesion in the left upper back. 09/28/2020: Patient had shave biopsy of the lesion from the left superior lateral upper back. 10/19/2020: Wide excision of the left superior lateral upper back? 12/07/2020: PET CT scan? 12/08/2020: left axillary ultrasound? 12/08/2020: Ultrasound of the soft tissue of the left neck? 01/03/2021: Ultrasound-guided biopsy of the left axilla lymph node as well as left submental lymph node? 05/10/2021: Left breast ultrasound? 06/01/2021: PET CT scan? 01/29/2024: CT scan of the brain without contrast? 02/14/2024: PET/CT scan? 04/02/2024: Mr. Meeks had ultrasound-guided percutaneous biopsy of soft tissue mass posterior lateral left shoulder OTHER MEDICAL HISTORY/CONDITIONS: FAMILY HISTORY: ?Clone Family Hx? SOCIAL HISTORY: MEDICATIONS: 1. cilostazol - 50 mg 1 tab Twice a Day 2. doxycycline hyclate - 100 mg 1 tab twice daily 3. ezetimibe - 10 mg 1 tab Daily 4. Farxiga - 10 mg 1 tab Each Day 5. gabapentin - 300 mg 1 tab Twice a Day 6. glimepiride - 2 mg tab Daily 7. HYDROcodone-acetaminophen - 7.5-325 mg 0.5 tab Twice a Day 8. Livalo - 2 mg 1 tab Daily 9. Ozempic - 1 mg/dose (2 mg/1.5 mL) 1 Weekly 10. vitamin S-xshijwmaykmy-ezzpaid - 500 mg 1 tab Daily?Palabra Meds? Medications Last Reconciled by Ximena Duke MA on 12/24/2024 ALLERGIES: SULFADIAZINE REVIEW OF SYSTEMS: A complete 14-point review of systems was performed and is negative except as noted in interval history. PHYSICAL EXAMINATION:?Alyx PE? VITAL SIGNS: Temperature?98.2, B/P?127/82, Oxygen?Saturation?97% Weight?204?lbs (Change?since?12/23/24:?0?lbs) PAIN: 0 - No pain ECOG Performance Status: 0 - Asymptomatic and fully active Conjunctivae is pink. Oral cavity is dry. Posterior pharyngeal wall appears normal. No erythema or mass lesions noted. A 1 cm lymph node is palpable in left axilla he has very well-healed scar in the left scapular region. Chest clear to auscultation. No wheezes or rales audible. Abdomen is soft no hepatosplenomegaly palpable. Extremities no clubbing or cyanosis noted. LABORATORY DATA: I have personally reviewed and interpreted each of the patient?s relevant lab tests, abnormal findings are below: Date 12/23/24 ??WHITE?BLOOD?COUNT?(Thou/mm3) 9.2 ??RED?BLOOD?COUNT?(Miln/mm3) 4.73 ??HEMOGLOBIN?(gm/dl) 14.9 ??HEMATOCRIT?(%) 43.2 ??PLATELET?COUNT?(Thou/mm3) 223 ??NEUTROPHILS?%,?AUTO?(%) 66 ??LYMPH?%,?AUTO?(%) 19 ??NEUTROPHILS,?AUTO?(Thou/mm3) 6.1 ASSESSMENT/PLAN:?Alyx Collins Assessment/Plan? 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 S/p shave biopsy followed by wide excision. Patient: HirenTOM : 1945 Page 7 of 7 patient is s/p resection of intrasnsit melanoma . . Oligometastatic disease PET CT scan since 02/14/2024) showed 2 lesions in the posterior left shoulder. Biopsy was positive for melanoma. [facility] Dr. Hans De Leon follows patient patient '5 recent PET SCAN shows showed a 15 mm hypermetabolic nodule posterior to the left upper humerus. Left axilla lymph node was not active on pet scan but is palpable It was biopsied in 2020 but was inconclusive I will like the patient to have excisional biopsy of axillary lymph node with his experimental mechanic electrical to make sure it is not melanoma - labs are stable and will proceed with lnnumotherapy - new labs ordered before immunotherapy cont keytruda patient is okay to get and do not need to hold keytruda PET CT scan discussed and have no metastatic disease polycythemia likely from hypoxia ordered bharath-2 and epo level which are both negative Phlebotomize 1 unit to keep hematocrit below 45 TSH T4 X-ray chest PA reviewed lateral CBC CMP reviewed CBC CMP TSH T4 RETURN TO CLINIC: I will see him back in the clinic in 2 months. BILLING AND COMPLIANCE: I reviewed external records from providers outside my specialty as summarized above. I spent a total of 50 minutes on this patient?s care on the day of their visit excluding time spent related to any billed procedures. This time includes time spent with the patient as well as time spent documenting in the medical record, reviewing patients records and tests, obtaining history, placing orders, communicating with other healthcare professionals, counseling the patient, family or caregiver, and/or care coordination for the diagnoses above. Electronically Signed by: Nick Collins MD T: 1:04 AM CC: Van?Rosibel,? PCP: Julissa Kimbrough Referring: Julissa Kimbrough This document was completed utilizing speech recognition software. Grammatical errors, random word insertions, pronoun errors, and incomplete sentences are an occasional consequence of this system due to software limitations, ambient noise, and hardware issues. Any formal questions or concerns about the content, text or information contained within the body of this dictation should be directly addressed to the provider for clarification.
== END 2024-12-26 23:59 | disposition home or self-care (01) ==
LOC: SCTC 12:56
PROVIDERS: PCP Family Medicine; Referring Provider Family Medicine; Visit Provider Internal Medicine Hematology & Oncology
DX: Z51.11 Encounter for antineoplastic chemotherapy (principal); C43.62 Malignant melanoma of left upper limb, including shoulder; D75.1 Secondary polycythemia
CPT/HCPCS: 36591; 80053; 82378; 84443; 85025; 96413; 99212; A4216; J1642; J7040; J7050; J9271; G0463

== ENCOUNTER → 2025-01-02 | Outpatient (CLI) | payer MEDICARE, OTHER, SELFPAY ==
[2025-01-02 12:18] LABS: Glucose Estimated Average 148 mg/dL (80-131); Hemoglobin A1C 6.8 % Hgb (4.8-6.0)
[2025-01-02 12:24] LABS: Cardiac Risk Estimate 2.1 RATIO (4.0-6.7); Cholesterol 117 mg/dL (132-200); HDL Cholesterol 57 mg/dL (40-60); LDL Cholesterol,Calculated 46 mg/dL (0-130); Triglycerides 72 mg/dL (30-150)
== END | disposition home or self-care (01) ==
PROVIDERS: PCP Family Medicine; Referring Provider Family Medicine; Visit Provider Family Medicine
DX: E11.65 Type 2 diabetes mellitus with hyperglycemia (principal)
CPT/HCPCS: 36415; 80061; 83036

== ENCOUNTER 2025-01-15 13:03 | Outpatient (RCR) | payer MEDICARE, OTHER, SELFPAY ==
[2025-01-14 12:08] LABS: Basophils % (Auto) 0 % (0-2.5); Eosinophils # (Auto) 0.3 Thou/mm3 (0.0-0.5); Eosinophils % (Auto) 3 % (0-10); Hematocrit 44.7 % (41.0-53.0); Hemoglobin 15.3 g/dL (13.5-16.0); Immature Granulocytes % (Auto) 0 % (0-0); Immature Granulocytes Auto 0.02 Thou/mm3 (0.00-0.00); Lymphocytes # (Auto) 1.3 Thou/mm3 (1.0-4.8); Lymphocytes % (Auto) 12 % (10-50); Mean Corpuscular HGB Conc 34.2 g/dl (31.0-37.0); Mean Corpuscular Hemoglobin 31.6 pg (25.0-35.0); Mean Corpuscular Volume 92 fL (80-100); Monocytes % (Auto) 10 % (0-12); Neutrophils # (Auto) 7.8 Thou/mm3 (1.8-7.7); Neutrophils % (Auto) 75 % (37-80); Nucleated Red Blood Cell % 0 /100 WBC (0); Platelet Count 213 Thou/mm3 (140-440); RDW Standard Deviation 43.2 fL (35.1-43.9); Red Blood Count 4.84 Miln/mm3 (4.50-5.90); White Blood Count 10.4 Thou/mm3 (3.8-10.6)
[2025-01-14 12:39] LABS: Alanine Aminotransferase 15 U/L (10-49); Albumin, Serum 3.9 gm/dL (3.4-4.8); Albumin/Globulin Ratio 1.7 (1.2-2.2); Alkaline Phosphatase 74 U/L (46-116); Anion Gap 9 (7-16); Aspartate Amino Transferase 19 U/L (0-34); BUN/Creatinine Ratio 19 Ratio (12-20); Bilirubin,Total 0.8 mg/dL (0.3-1.2); Blood Urea Nitrogen 21 mg/dL (9-23); Calcium (Corrected) 9.1 mg/dL (8.5-10.1); Carbon Dioxide 25.7 mMol/L (20.0-31.0); Chloride 105 mMol/L (98-107); Creatinine (Component) 1.1 mg/dL (0.6-1.3); Globulin 2.3 gm/dL (2.3-3.5); Glucose 115 mg/dL (74-106); Osmolality,Calculated 283 (275-295); Potassium 3.7 mMol/L (3.4-5.1); Sodium 140 mMol/L (136-145); Thyroid Stimulating Hormone 1.94 uIU/mL (0.55-4.78); Total Protein 6.2 gm/dL (5.7-8.2); eGFR > 60 See Note
[2025-01-14 12:40] LABS: Carcinoembryonic Antigen 2.2 ng/mL (0.0-5.0)
== END 2025-01-26 23:59 | disposition home or self-care (01) ==
LOC: SCTC 13:03
PROVIDERS: PCP Family Medicine; Referring Provider Internal Medicine Hematology & Oncology; Visit Provider Internal Medicine Hematology & Oncology
DX: Z51.11 Encounter for antineoplastic chemotherapy (principal); C43.62 Malignant melanoma of left upper limb, including shoulder; D75.1 Secondary polycythemia
CPT/HCPCS: 36591; 80053; 82378; 84443; 85025; 96413; A4216; J1642; J7050; J9271

== ENCOUNTER 2025-02-24 14:28 | Outpatient (RCR) | payer MEDICARE, OTHER, SELFPAY ==
[2025-02-04 14:28] LABS: Basophils % (Auto) 0 % (0-2.5); Eosinophils # (Auto) 0.3 Thou/mm3 (0.0-0.5); Eosinophils % (Auto) 4 % (0-10); Hematocrit 43.9 % (41.0-53.0); Hemoglobin 15.1 g/dL (13.5-16.0); Immature Granulocytes % (Auto) 0 % (0-0); Immature Granulocytes Auto 0.02 Thou/mm3 (0.00-0.00); Lymphocytes # (Auto) 1.6 Thou/mm3 (1.0-4.8); Lymphocytes % (Auto) 22 % (10-50); Mean Corpuscular HGB Conc 34.4 g/dl (31.0-37.0); Mean Corpuscular Hemoglobin 32.2 pg (25.0-35.0); Mean Corpuscular Volume 94 fL (80-100); Monocytes # (Auto) 0.8 Thou/mm3 (0.0-0.8); Monocytes % (Auto) 12 % (0-12); Neutrophils # (Auto) 4.4 Thou/mm3 (1.8-7.7); Neutrophils % (Auto) 62 % (37-80); Nucleated Red Blood Cell % 0 /100 WBC (0); Platelet Count 220 Thou/mm3 (140-440); RDW Standard Deviation 43.7 fL (35.1-43.9); Red Blood Count 4.69 Miln/mm3 (4.50-5.90); White Blood Count 7.2 Thou/mm3 (3.8-10.6)
[2025-02-04 14:51] LABS: Carcinoembryonic Antigen 1.8 ng/mL (0.0-5.0)
[2025-02-04 14:55] LABS: Alanine Aminotransferase 21 U/L (10-49); Albumin/Globulin Ratio 1.7 (1.2-2.2); Alkaline Phosphatase 71 U/L (46-116); Anion Gap 7 (7-16); Aspartate Amino Transferase 25 U/L (0-34); BUN/Creatinine Ratio 18 Ratio (12-20); Bilirubin,Total 0.8 mg/dL (0.3-1.2); Blood Urea Nitrogen 20 mg/dL (9-23); Calcium 9.6 mg/dL (8.3-10.6); Calcium (Corrected) 9.6 mg/dL (8.5-10.1); Chloride 106 mMol/L (98-107); Creatinine (Component) 1.1 mg/dL (0.6-1.3); Globulin 2.4 gm/dL (2.3-3.5); Glucose 77 mg/dL (74-106); Osmolality,Calculated 281 (275-295); Potassium 3.8 mMol/L (3.4-5.1); Sodium 140 mMol/L (136-145); Thyroid Stimulating Hormone 2.62 uIU/mL (0.55-4.78); Total Protein 6.4 gm/dL (5.7-8.2); eGFR > 60 See Note
[2025-02-23 16:07] LABS: Basophils % (Auto) 1 % (0-2.5); Eosinophils # (Auto) 0.3 Thou/mm3 (0.0-0.5); Eosinophils % (Auto) 4 % (0-10); Hematocrit 45.5 % (41.0-53.0); Hemoglobin 15.6 g/dL (13.5-16.0); Immature Granulocytes % (Auto) 0 % (0-0); Immature Granulocytes Auto 0.02 Thou/mm3 (0.00-0.00); Lymphocytes # (Auto) 1.9 Thou/mm3 (1.0-4.8); Lymphocytes % (Auto) 24 % (10-50); Mean Corpuscular HGB Conc 34.3 g/dl (31.0-37.0); Mean Corpuscular Hemoglobin 31.7 pg (25.0-35.0); Mean Corpuscular Volume 93 fL (80-100); Monocytes # (Auto) 0.8 Thou/mm3 (0.0-0.8); Monocytes % (Auto) 11 % (0-12); Neutrophils # (Auto) 4.6 Thou/mm3 (1.8-7.7); Neutrophils % (Auto) 60 % (37-80); Nucleated Red Blood Cell % 0 /100 WBC (0); Platelet Count 220 Thou/mm3 (140-440); RDW Standard Deviation 43.8 fL (35.1-43.9); Red Blood Count 4.92 Miln/mm3 (4.50-5.90); White Blood Count 7.7 Thou/mm3 (3.8-10.6)
[2025-02-23 16:31] LABS: Carcinoembryonic Antigen 1.6 ng/mL (0.0-5.0)
[2025-02-23 16:32] LABS: Alanine Aminotransferase 16 U/L (10-49); Albumin/Globulin Ratio 1.8 (1.2-2.2); Alkaline Phosphatase 71 U/L (46-116); Anion Gap 8 (7-16); Aspartate Amino Transferase 22 U/L (0-34); BUN/Creatinine Ratio 15 Ratio (12-20); Bilirubin,Total 0.7 mg/dL (0.3-1.2); Blood Urea Nitrogen 17 mg/dL (9-23); Carbon Dioxide 27.6 mMol/L (20.0-31.0); Chloride 106 mMol/L (98-107); Creatinine (Component) 1.1 mg/dL (0.6-1.3); Globulin 2.2 gm/dL (2.3-3.5); Glucose 149 mg/dL (74-106); Osmolality,Calculated 287 (275-295); Potassium 3.9 mMol/L (3.4-5.1); Sodium 142 mMol/L (136-145); Thyroid Stimulating Hormone 2.46 uIU/mL (0.55-4.78); Total Protein 6.2 gm/dL (5.7-8.2); eGFR > 60 See Note
--- NOTE | 2025-02-24 15:29 | CTCFLWUP_ITS ---
Patient: TOM MEEKS : 1945 Page 2 of 2 FOLLOW UP NOTE DATE OF SERVICE: 02/24/2025 NAME: TOM MEEKS ACCOUNT: [id number] : 1945 AGE: 79 INTERVAL HISTORY: Tom, a male with stage 2 malignant melanoma diagnosed in 2019, presented for follow-up with concerns of foot swelling, vertigo, and eczema. His history includes polycythemia and skin cancer. Currently on Keytruda immunotherapy, he recently discontinued hydrochlorothiazide and lisinopril due to vertigo symptoms. Physical exam revealed eczema, foot swelling, and a palpable left axilla lymph node. A new PET scan was ordered with pre/post IV hydration. Topical steroids were recommended for eczema instead of Kenalog injection. Sleep specialist referral was made for alternative sleep apnea treatment, and lifestyle modifications were suggested for peripheral edema and vertigo. Chief Complaint Follow-up for melanoma treatment, swollen feet for 1 week, ongoing vertigo History of Present Illness Tom Meeks, a patient with a history of stage 2 malignant melanoma diagnosed in 2019, presents for follow-up. He is currently undergoing immunotherapy for his melanoma. Mr. Meeks reports experiencing swelling in his feet for the past week, which he attributes to prolonged sitting with his feet down while entertaining company. He has also been experiencing ongoing vertigo, which started after a previous medical appointment where he received IV fluids. While the vertigo is not as severe as it was initially, it persists daily. His primary care physician has adjusted his medications, discontinuing hydrochlorothiazide and lisinopril, in an attempt to address the vertigo, but the patient reports only minimal improvement. The patient mentions struggling with sleep apnea treatment. He attempted to use a CPAP machine but found it uncomfortable and difficult to use, even after trying different masks. One mask caused an open wound on his nose. Due to his frustration with the device, he returned it to the provider. Mr. Meeks has been experiencing eczema, which his hand profiler proposed treating with a Kenalog injection. However, there were concerns about potential interactions with his ongoing Keytruda (immunotherapy) treatment. The patient also notes that the immunotherapy seems to be exacerbating his eczema symptoms. Regarding his cancer follow-up, Mr. Meeks had his last PET scan in August. He recently visited a seo specialist who recommended the aforementioned Kenalog injection for his eczema. The patient continues to struggle with reaching certain areas of his body, particularly his back, for applying topical treatments. Medical History - Vertigo, ongoing - Polycythemia, likely from hypoxia - Stage 2 malignant melanoma of left superior upper back - Eczema - Skin cancer at age 19 Surgical History - Shave biopsy of left superior upper back for stage 2 malignant melanoma in 2019 - Biopsy of left axilla lymph node in 2020, inconclusive results Medications and Supplements - Keytruda (immunotherapy) - Hydrochlorothiazide - Discontinued due to possible connection with vertigo/dizziness - Lisinopril - Discontinued due to possible connection with vertigo/dizziness Social History - Living Situation: Lives with spouse - Exercise: Uses a lift chair that lays back, pedals outside - Social Support: Recently had company visiting, has a sister and nephew - Travel: Recently flew from [place] and [place] Review of Systems General: Positive for fatigue. Skin: Positive for eczema. Respiratory: Positive for difficulty using CPAP machine. Cardiovascular: Positive for lower extremity edema. Neurological: Positive for dizziness, vertigo. 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 August 2020: Patent noticed a dark irregular margined lesion in the left upper back. 09/28/2020: Patient had shave biopsy of the lesion from the left superior lateral upper back. 10/19/2020: Wide excision of the left superior lateral upper back? 12/07/2020: PET CT scan? 12/08/2020: left axillary ultrasound? 12/08/2020: Ultrasound of the soft tissue of the left neck? 01/03/2021: Ultrasound-guided biopsy of the left axilla lymph node as well as left submental lymph node? 05/10/2021: Left breast ultrasound? 06/01/2021: PET CT scan? 01/29/2024: CT scan of the brain without contrast? 02/14/2024: PET/CT scan? 04/02/2024: Mr. Meeks had ultrasound-guided percutaneous biopsy of soft tissue mass posterior lateral left shoulder OTHER MEDICAL HISTORY/CONDITIONS: FAMILY HISTORY: SOCIAL HISTORY: MEDICATIONS: 1. cilostazol - 50 mg 1 tab Twice a Day 2. ezetimibe - 10 mg 1 tab Daily 3. Farxiga - 10 mg 1 tab Each Day 4. gabapentin - 300 mg 1 tab Twice a Day 5. glimepiride - 2 mg tab Daily 6. HYDROcodone-acetaminophen - 7.5-325 mg 0.5 tab Twice a Day 7. Livalo - 2 mg 1 tab Daily 8. triamcinolone acetonide - 0.05 % 1 gm Daily 9. vitamin M-hxivgbbmttdl-tnsgavx - 500 mg 1 tab Daily Medications Last Reconciled by Julissa Jiménez MA on 02/24/2025 ALLERGIES: SULFADIAZINE REVIEW OF SYSTEMS: A complete 14-point review of systems was performed and is negative except as noted in interval history. PHYSICAL EXAMINATION: VITAL SIGNS: Temperature?87, B/P?119/68, Oxygen?Saturation?97% Weight?207?lbs (Change?since?02/23/25:?-0.4?lbs) PAIN: 0 - No pain ECOG Performance Status: 0 - Asymptomatic and fully active Conjunctivae is pink. Oral cavity is dry. Posterior pharyngeal wall appears normal. No erythema or mass lesions noted. A 1 cm lymph node is palpable in left axilla he has very well-healed scar in the left scapular region. Chest clear to auscultation. No wheezes or rales audible. Abdomen is soft no hepatosplenomegaly palpable. Extremities no clubbing or cyanosis noted. LABORATORY DATA: I have personally reviewed and interpreted each of the patient?s relevant lab tests, abnormal findings are below: Date 02/04/25 02/23/25 ??WHITE?BLOOD?COUNT?(Thou/mm3) ? 7.7 ??RED?BLOOD?COUNT?(Miln/mm3) ? 4.92 ??HEMOGLOBIN?(gm/dl) ? 15.6 ??HEMATOCRIT?(%) ? 45.5 ??PLATELET?COUNT?(Thou/mm3) ? 220 ??NEUTROPHILS?%,?AUTO?(%) ? 60 ??LYMPH?%,?AUTO?(%) ? 24 ??NEUTROPHILS,?AUTO?(Thou/mm3) ? 4.6 ??GLUCOSE,RANDOM?(mg/dL) 77 149?H ??BLOOD?UREA?NITROGEN?(mg/dL) 20 17 ??CREATININE?(mg/dL) 1.10 1.10 ??SODIUM?(mmol/L) 140 142 ??POTASSIUM?(mmol/L) 3.8 3.9 ??CHLORIDE?(mmol/L) 106 106 ??CrCl?(CandG)?(ml/min) 73.36 73.64 ??AST/SGOT?(Unit/L) 25 22 ??ALT/SGPT?(Unit/L) 21 16 ??ALKALINE?PHOSPHATASE?(Unit/L) 71 71 ??BILIRUBIN,?TOTAL?(mg/dL) 0.8 0.7 ??PROTEIN?TOTAL?(gm/dl) 6.4 6.2 ??ALBUMIN,?SERUM?(gm/dl) 4.0 4.0 ??GLOBULIN?(gm/dl) 2.4 2.2?L ??ALBUMIN/GLOBULIN?RATIO 1.7 1.8 ??CALCIUM,?SERUM?(mg/dL) 9.6 9.0 ??CALCIUM?SERUM?(CORRECTED)?(mg/dL) 9.6 9.0 ??CEA?(O*)?(ng/ml) ? 1.6 Physical Examination Skin: Eczema noted. Open wound observed on nose from CPAP mask use. Musculoskeletal: Swelling noted in feet. Lymphatic: Palpable lymph node in left axilla. 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 S/p shave biopsy followed by wide excision. Patient: TOM Maradiaga : 1945 Page 7 of 7 patient is s/p resection of intrasnsit melanoma . . Oligometastatic disease PET CT scan since 02/14/2024) showed 2 lesions in the posterior left shoulder. Biopsy was positive for melanoma. [facility] Dr. Hans De Leon follows patient patient '5 recent PET SCAN shows showed a 15 mm hypermetabolic nodule posterior to the left upper humerus. Left axilla lymph node was not active on pet scan but is palpable It was biopsied in 2020 but was inconclusive I will like the patient to have excisional biopsy of axillary lymph node with his hand profiler to make sure it is not melanoma - labs are stable and will proceed with lnnumotherapy - new labs ordered before immunotherapy cont keytruda patient is okay to get and do not need to hold keytruda PET CT scan discussed and have no metastatic disease polycythemia likely from hypoxia ordered iqra-2 and epo level which are both negative Phlebotomize 1 unit to keep hematocrit below 45 Tom Meeks, male patient with a history of stage 2 malignant melanoma of left superior upper back diagnosed in 2019, currently on immunotherapy, presenting with concerns of eczema, foot swelling, and vertigo. Malignant Melanoma Assessment: Patient has a history of stage 2 malignant melanoma of the left superior upper back, initially detected in 2019. Two lesions were identified on the posterior left shoulder. A 15-millimeter hypermetabolic nodule was noted posterior to the left upper humerus. Left axilla lymph node was palpable but not active on PET scan; biopsy in 2020 was inconclusive. Patient is currently on immunotherapy. Last PET scan was performed in August. Given the ongoing treatment and need for monitoring, a new PET scan is warranted to assess disease status and progression. Plan: - Order new PET scan - Schedule IV fluids before and after PET scan to manage contrast dye effects - Book appointment for IV fluids business solutions consultant on PET scan day - Instruct patient to continue drinking water after scan - Schedule additional IV fluids for the day following PET scan - Continue current immunotherapy regimen - Advise patient to follow up with [facility] in [place] if disease progresses, for potential clinical trials - Avoid use of systemic steroids (e.g., Kenalog injection) due to potential interference with immunotherapy - Use only topical steroid ointments for skin issues Eczema Assessment: Patient is experiencing eczema, likely exacerbated by immunotherapy treatment for melanoma. customer contact specialist recommended Kenalog injection, which was declined due to potential interference with Keytruda (immunotherapy). Plan: - Apply topical steroid ointment to affected areas - Recommend use of herbal oil for massage on eczematous areas, particularly on the back - Instruct family members to assist with application if patient cannot reach affected areas Polycythemia Assessment: Patient has a history of polycythemia, likely secondary to hypoxia. IQRA and EPO were negative. Patient was started on phlebotomy. CPAP was attempted but discontinued due to poor fit and patient discomfort. Elevated hemoglobin levels suggest ongoing nocturnal hypoxia. Plan: - Refer patient back to Dr. Ashby (sleep specialist) to discuss alternative treatment options for sleep apnea - Consider nocturnal oxygen therapy - Educate patient on benefits of oxygen therapy for longevity and cognitive function - Recommend using oxygen while watching TV in the evening if continuous nocturnal use is not tolerated - Continue monitoring hemoglobin levels Peripheral Edema Assessment: Patient reports bilateral foot swelling for the past week, likely exacerbated by prolonged sitting with feet dependent during recent social gatherings and travel. Plan: - Educate patient on elevation of legs, especially when sitting or lying down - Recommend leg exercises: walking feet up the wall while lying on bed - Suggest foot massage for 5 minutes daily - Consider use of vibrating foot massager - Monitor for worsening edema; may consider Lasix if edema persists or worsens Vertigo Assessment: Patient experiencing ongoing vertigo, possibly related to recent medication changes. Hydrochlorothiazide and lisinopril were discontinued by another provider to address potential low blood pressure contribution. Symptoms have improved but persist. Differential diagnosis includes postural hypotension, given patient's age and vascular status. Plan: - Educate patient on proper techniques for positional changes: - Wiggle toes and move feet before standing - Gradual position changes from lying to sitting to standing - Follow up with primary care provider regarding medication adjustments and vertigo management - Consider referral for physical therapy to address balance issues and provide exercises ORDERS: Order # Description [id number] Comprehensive Metabolic Panel - 12 + CBC with Auto Diff [id number] PET/CT of Skull to mid-thigh for Restaging RETURN TO CLINIC: BILLING AND COMPLIANCE: I reviewed external records from providers outside my specialty as summarized above. I spent a total of 50 minutes on this patient?s care on the day of their visit excluding time spent related to any billed procedures. This time includes time spent with the patient as well as time spent documenting in the medical record, reviewing patients records and tests, obtaining history, placing orders, communicating with other healthcare professionals, counseling the patient, family or caregiver, and/or care coordination for the diagnoses above. Electronically Signed by: Nick Collins MD T: 3:27 PM CC: Van?Rosibel? PCP: Pan Hendrix Referring: Pan Hendrix This document was completed utilizing speech recognition software. Grammatical errors, random word insertions, pronoun errors, and incomplete sentences are an occasional consequence of this system due to software limitations, ambient noise, and hardware issues. Any formal questions or concerns about the content, text or information contained within the body of this dictation should be directly addressed to the provider for clarification.
== END 2025-02-25 23:59 | disposition home or self-care (01) ==
LOC: SCTC 14:28
PROVIDERS: PCP Family Medicine; Referring Provider Family Medicine; Visit Provider Internal Medicine Hematology & Oncology
DX: Z51.11 Encounter for antineoplastic chemotherapy (principal); C43.62 Malignant melanoma of left upper limb, including shoulder; D75.1 Secondary polycythemia; L30.9 Dermatitis, unspecified; R60.0 Localized edema; R42 Dizziness and giddiness
CPT/HCPCS: 36591; 80053; 82378; 84443; 85025; 96413; 99212; A4216; J1642; J7050; J9271; G0463

== ENCOUNTER → 2025-02-26 | Outpatient (CLI) | payer MEDICARE, OTHER, SELFPAY ==
[2025-02-26 08:13] LABS: Misc Send Out* See Sep Rpt
== END | disposition home or self-care (01) ==
PROVIDERS: PCP Family Medicine; Referring Provider Internal Medicine Hematology & Oncology; Visit Provider Internal Medicine Hematology & Oncology
DX: C43.62 Malignant melanoma of left upper limb, including shoulder (principal); D75.1 Secondary polycythemia

== ENCOUNTER 2025-03-19 13:21 | Outpatient (RCR) | payer MEDICARE, OTHER, SELFPAY ==
[2025-03-18 15:12] LABS: Basophils % (Auto) 0 % (0-2.5); Eosinophils # (Auto) 0.2 Thou/mm3 (0.0-0.5); Eosinophils % (Auto) 3 % (0-10); Hematocrit 45.6 % (41.0-53.0); Hemoglobin 15.7 g/dL (13.5-16.0); Immature Granulocytes % (Auto) 0 % (0-0); Immature Granulocytes Auto 0.02 Thou/mm3 (0.00-0.00); Lymphocytes # (Auto) 1.7 Thou/mm3 (1.0-4.8); Lymphocytes % (Auto) 19 % (10-50); Mean Corpuscular HGB Conc 34.4 g/dl (31.0-37.0); Mean Corpuscular Hemoglobin 30.8 pg (25.0-35.0); Mean Corpuscular Volume 90 fL (80-100); Monocytes # (Auto) 0.9 Thou/mm3 (0.0-0.8); Monocytes % (Auto) 10 % (0-12); Neutrophils % (Auto) 68 % (37-80); Nucleated Red Blood Cell % 0 /100 WBC (0); Platelet Count 208 Thou/mm3 (140-440); RDW Standard Deviation 43.1 fL (35.1-43.9); Red Blood Count 5.09 Miln/mm3 (4.50-5.90); White Blood Count 8.9 Thou/mm3 (3.8-10.6)
[2025-03-18 15:34] LABS: Carcinoembryonic Antigen 2.1 ng/mL (0.0-5.0)
[2025-03-18 15:35] LABS: Alanine Aminotransferase 14 U/L (10-49); Albumin/Globulin Ratio 1.7 (1.2-2.2); Alkaline Phosphatase 85 U/L (46-116); Anion Gap 12 (7-16); Aspartate Amino Transferase 20 U/L (0-34); BUN/Creatinine Ratio 17 Ratio (12-20); Bilirubin,Total 0.6 mg/dL (0.3-1.2); Blood Urea Nitrogen 22 mg/dL (9-23); Calcium 8.6 mg/dL (8.3-10.6); Calcium (Corrected) 8.6 mg/dL (8.5-10.1); Carbon Dioxide 25.8 mMol/L (20.0-31.0); Chloride 105 mMol/L (98-107); Creatinine (Component) 1.3 mg/dL (0.6-1.3); Globulin 2.3 gm/dL (2.3-3.5); Glucose 211 mg/dL (74-106); Osmolality,Calculated 294 (275-295); Sodium 143 mMol/L (136-145); Thyroid Stimulating Hormone 1.53 uIU/mL (0.55-4.78); Total Protein 6.3 gm/dL (5.7-8.2); eGFR 56 See Note
== END 2025-03-28 23:59 | disposition home or self-care (01) ==
LOC: SCTC 13:21
PROVIDERS: PCP Family Medicine; Referring Provider Family Medicine; Visit Provider Internal Medicine Hematology & Oncology
DX: Z51.11 Encounter for antineoplastic chemotherapy (principal); C43.62 Malignant melanoma of left upper limb, including shoulder; L30.9 Dermatitis, unspecified; D75.1 Secondary polycythemia; R60.9 Edema, unspecified; R42 Dizziness and giddiness
CPT/HCPCS: 36591; 80053; 82378; 84443; 85025; 96413; A4216; J1642; J7040; J7050; J9271

== ENCOUNTER → 2025-04-02 | Outpatient (CLI) | payer MEDICARE, OTHER, SELFPAY ==
[2025-04-02 09:41] LABS: Basophils # (Auto) 0.1 Thou/mm3 (0.0-0.2); Basophils % (Auto) 1 % (0-2.5); Eosinophils # (Auto) 0.3 Thou/mm3 (0.0-0.5); Eosinophils % (Auto) 4 % (0-10); Hematocrit 48.5 % (41.0-53.0); Immature Granulocytes % (Auto) 0 % (0-0); Immature Granulocytes Auto 0.03 Thou/mm3 (0.00-0.00); Lymphocytes # (Auto) 2.1 Thou/mm3 (1.0-4.8); Lymphocytes % (Auto) 23 % (10-50); Mean Corpuscular HGB Conc 35.1 g/dl (31.0-37.0); Mean Corpuscular Hemoglobin 31.1 pg (25.0-35.0); Mean Corpuscular Volume 89 fL (80-100); Monocytes % (Auto) 11 % (0-12); Neutrophils # (Auto) 5.7 Thou/mm3 (1.8-7.7); Neutrophils % (Auto) 61 % (37-80); Nucleated Red Blood Cell % 0 /100 WBC (0); Platelet Count 244 Thou/mm3 (140-440); RDW Standard Deviation 41.8 fL (35.1-43.9); Red Blood Count 5.46 Miln/mm3 (4.50-5.90); White Blood Count 9.2 Thou/mm3 (3.8-10.6)
[2025-04-02 09:51] LABS: Glucose Estimated Average 146 mg/dL (80-131); Hemoglobin A1C 6.7 % Hgb (4.8-6.0)
[2025-04-02 10:01] LABS: Alanine Aminotransferase 22 U/L (10-49); Albumin, Serum 4.3 gm/dL (3.4-4.8); Alkaline Phosphatase 72 U/L (46-116); Anion Gap 12 (7-16); Aspartate Amino Transferase 25 U/L (0-34); BUN/Creatinine Ratio 22 Ratio (12-20); Bilirubin,Total 0.7 mg/dL (0.3-1.2); Blood Urea Nitrogen 29 mg/dL (9-23); Carbon Dioxide 27.1 mMol/L (20.0-31.0); Cardiac Risk Estimate 2.1 RATIO (4.0-6.7); Chloride 105 mMol/L (98-107); Cholesterol 122 mg/dL (132-200); Creatinine (Component) 1.3 mg/dL (0.6-1.3); Globulin 2.2 gm/dL (2.3-3.5); Glucose 80 mg/dL (74-106); HDL Cholesterol 58 mg/dL (40-60); LDL Cholesterol,Calculated 51 mg/dL (0-130); Osmolality,Calculated 291 (275-295); Potassium 4.4 mMol/L (3.4-5.1); Sodium 144 mMol/L (136-145); Thyroid Stimulating Hormone 2.19 uIU/mL (0.55-4.78); Total Protein 6.5 gm/dL (5.7-8.2); Triglycerides 64 mg/dL (30-150); eGFR 56 See Note
[2025-04-02 14:12] LABS: Creatinine MALB Rnd Ur 104 mg/dL (30-125); Microalbumin, Random Urine < 3 mg/L (0-300)
== END | disposition home or self-care (01) ==
LOC: COPL 08:51
PROVIDERS: PCP Family Medicine; Referring Provider Family Medicine; Visit Provider Family Medicine
DX: E11.65 Type 2 diabetes mellitus with hyperglycemia (principal); E78.2 Mixed hyperlipidemia
CPT/HCPCS: 36415; 80053; 80061; 82043; 82570; 83036; 84443; 85025

== ENCOUNTER → 2025-04-06 | Outpatient (CLI) | payer MEDICARE, OTHER, SELFPAY ==
--- NOTE | 2025-04-06 09:30 | XR_ITS ---
EXAMINATION: PET/CT FUSION SKULL TO THIGH EXAM DATE AND TIME: 09/06/2025 1024 hours Comparison PET/CT scan September 14, 2024, June 24, 2024, CTA chest October 15, 2024 INDICATIONS: Diagnosis melanoma upper left lamina including the shoulder, restaging post treatment CTDI:vol (mGy) 7.96 DLP: (mGycm) 826.1 PROCEDURE: 15.05 mCi FDG was administered intravenously To allow for distribution and uptake of radiotracer, the patient was allowed to rest quietly in a shielded room. Imaging was performed on an integrated 16-slice PET/CT scanner, with scanning from the skull base to the mid thigh. Serum blood glucose at the time of the injection was measured 102 mg/dL. CT scanning was performed without oral or intravenous contrast material. FINDINGS: Head and Neck: There is no miguel hypermetabolism in the neck. The visualized portions of the brain are normal in appearance on CT. Chest: There is no miguel hypermetabolism in the chest. No pulmonary nodules noted on this relatively low resolution CT chest without contrast, please see the high-resolution CT chest report October 15, 2024 Abdomen and Pelvis: There is no miguel hypermetabolism in retroperitoneal or pelvic chains. The spleen is normal in size and FDG avidity. Musculoskeletal: Marrow uptake is within normal range. IMPRESSION: No interval hypermetabolic metastatic disease Recommend repeat a high resolution CT chest without contrast to compare with the October 15, 2024 exam
== END | disposition home or self-care (01) ==
PROVIDERS: PCP Family Medicine; Referring Provider Internal Medicine Hematology & Oncology; Visit Provider Internal Medicine Hematology & Oncology
DX: C43.62 Malignant melanoma of left upper limb, including shoulder (principal); D75.1 Secondary polycythemia
CPT/HCPCS: 78815; A9552

== ENCOUNTER → 2025-04-07 | Outpatient (CLI) | payer MEDICARE, OTHER, SELFPAY ==
[2025-04-07 14:22] LABS: Prostate Specific Antigen 1.14 ng/mL (0-4.00)
== END | disposition home or self-care (01) ==
LOC: COPL 11:11
PROVIDERS: PCP Family Medicine; Referring Provider Family Medicine; Visit Provider Family Medicine
DX: E78.2 Mixed hyperlipidemia (principal); R33.9 Retention of urine, unspecified
CPT/HCPCS: 36415; 84153

== ENCOUNTER 2025-04-09 12:38 | Emergency (ER) | payer MEDICARE, OTHER, SELFPAY ==
[2025-04-09 13:09] VITALS: BP 129/80; PULSE 88; RESP 16; TEMP 37.6; O2SAT 96; BMI 27.9
--- NOTE | 2025-04-09 13:26 | XR_ITS ---
Examination: CT abdomen and pelvis without contrast. Coronal 3-D reconstructions. Sagittal 2-D reconstructions. Date and time of exam:April 09, 2025 1353 hours Comparison PET/CT scan April 06, 2025 INDICATIONS: Hematuria and flank pain today, diagnosis malignant melanoma CTDI: vol (mGy): 9.52 DLP: (mGycm): 684 Technique: Axial images of the abdomen have been obtained, 3 mm slice thickness Intravenous contrast material has not been administered. Low dose protocols were performed. One or more of the following dose reduction techniques were used; automated exposure control, adjustment of the mA and/or KV according to patient size, use of iterative reconstruction technique. Findings: No focal liver or splenic lesions Absent gallbladder No pancreatic or adrenal mass No pancreatic mass 1 mm right renal calculus 2 mm left renal calculus Perinephric stranding Mild to moderate right hydronephrosis secondary to 5.6 mm proximal to mid right ureteral calculus No bowel obstruction No diverticulitis Urinary bladder contracted around a Zarate catheter IMPRESSION: Bilateral renal calculi Mild to moderate right hydronephrosis secondary to 5.6 mm proximal to mid right ureteral calculus
[2025-04-09] MEDS: HYDROcodone/APAP 5/325 TABLET 1 TAB PO (13:32)
[2025-04-09 13:51] LABS: Basophils % (Auto) 0 % (0-2.5); Eosinophils # (Auto) 0.2 Thou/mm3 (0.0-0.5); Eosinophils % (Auto) 2 % (0-10); Hematocrit 45.1 % (41.0-53.0); Hemoglobin 16.1 g/dL (13.5-16.0); Immature Granulocytes % (Auto) 0 % (0-0); Immature Granulocytes Auto 0.03 Thou/mm3 (0.00-0.00); Lymphocytes # (Auto) 1.4 Thou/mm3 (1.0-4.8); Lymphocytes % (Auto) 13 % (10-50); Mean Corpuscular HGB Conc 35.7 g/dl (31.0-37.0); Mean Corpuscular Hemoglobin 31.3 pg (25.0-35.0); Mean Corpuscular Volume 88 fL (80-100); Monocytes # (Auto) 1.5 Thou/mm3 (0.0-0.8); Monocytes % (Auto) 14 % (0-12); Neutrophils # (Auto) 7.8 Thou/mm3 (1.8-7.7); Neutrophils % (Auto) 71 % (37-80); Nucleated Red Blood Cell % 0 /100 WBC (0); Platelet Count 233 Thou/mm3 (140-440); RDW Standard Deviation 41.2 fL (35.1-43.9); Red Blood Count 5.14 Miln/mm3 (4.50-5.90)
--- NOTE | 2025-04-09 13:53 | PD.EDADULT ---
ED General RME/HPI General Chief complaint: General Adult/Misc Complain Stated complaint: SENT BY [facility] FOR ABN LABS Time Seen by Provider: 04/09/25 12:53 Arrival date/time: 04/09/25 12:38 Limitations: no limitations RME / HPI RME / HPI narrative: 79-year-old male with past medical history of melanoma currently undergoing Keytruda infusions presents for evaluation of abnormal labs. Patient reports he was seen at [facility] 3 days ago for evaluation of urinary retention and lumbar pain, at which time he was told he had abnormal renal function and possible prostatitis. A urinary catheter was placed and he was discharged with plan to continue to follow-up with his cancer team. Patient reports that he was seen by his cancer team this week and had additional labs drawn which showed renal insufficiency. Patient endorses worsening lumbar back pain and dark-colored urine in catheter bag. Patient reports known history of nephrolithiasis and states that today symptoms are similar to what he experienced that time. He denies fever, chills, chest pain, shortness of breath, cough, nausea, loose stools, rash. Related Data Home Medications ?Medication ?Instructions ?Recorded ?Confirmed glimepiride 4 mg tablet (Amaryl) 2 mg PO BID ##0 09/23/12 10/13/24 ezetimibe 10 mg tablet (Zetia) 10 mg PO HS 06/24/20 10/13/24 gabapentin 300 mg capsule 300 mg PO BID 06/24/20 10/13/24 hydrochlorothiazide 25 mg tablet 25 mg PO DAILY 06/24/20 10/13/24 cilostazol 100 mg tablet 100 mg PO BID 06/26/24 10/13/24 lisinopril 10 mg tablet 10 mg PO QDAY 06/26/24 10/13/24 pitavastatin calcium 2 mg tablet 2 mg PO QDAY 06/26/24 10/13/24 (Livalo) dapagliflozin propanediol 10 mg 10 mg PO QDAY 10/13/24 10/13/24 tablet (Farxiga) hydrocodone 5 mg-acetaminophen 325 1 tab PO Q4H PRN Pain 10/13/24 10/13/24 mg tablet Allergies Allergy/AdvReac Type Severity Reaction Status Date / Time Sulfa (Sulfonamide Allergy Intermediate HIVES Verified 04/09/25 12:44 Antibiotics) empagliflozin (From Allergy Mild Rash Verified 04/09/25 12:44 Jardiance) tetracycline Allergy Unknown Rash Verified 04/09/25 12:44 adhesive tape Allergy Redness of Verified 04/09/25 12:44 Skin Review of Systems Constitutional Constitutional: Denies body ache(s), Denies chills, Denies excessive sweating, Denies fever(s), Denies headache(s), Denies lethargy and Denies weakness Eyes Eyes: Denies blurry vision, Denies change in vision and Denies loss of vision ENT Ears, Nose, Mouth, and Throat: Denies disequilibrium, Denies dizziness, Denies otalgia, Denies headache(s), Denies neck pain and Denies vertigo Cardiovascular Cardiovascular: Denies chest pain, Denies dyspnea and Denies edema Respiratory Respiratory: Denies cough, Denies dyspnea, Denies hemoptysis and Denies wheezing Gastrointestinal Gastrointestinal: Denies abdominal pain, Denies constipation, Denies diarrhea, Denies loose stools, Denies nausea and Denies vomiting Genitourinary Genitourinary: Denies difficulty urinating, Reports dysuria, Reports flank pain, Reports hematuria, Denies testicular pain and Reports urinary frequency Musculoskeletal Musculoskeletal: Reports back pain, Denies neck pain and Denies numbness Integumentary/Breasts Skin/Breast: Reports lesions and Denies rash Neurologic Neurologic: Denies convulsions, Denies disequilibrium, Denies dizziness, Denies headache(s), Denies loss of vision, Denies numbness, Denies vertigo and Denies weakness Endocrine Endocrine: Denies excessive sweating Allergic/Immunologic Allergic/Immunologic: Denies wheezing Past Medical History Past Medical History NEUROLOGIC: Positive Neurological Disorders and Head Trauma; Negative Cerebrovascular Accident, Transient Ischemic Attacks (TIA), Dementia, Alzheimer's Disease, Parkinson's Disease, Brain Tumor, Meningitis, Seizures, Epilepsy, Multiple Sclerosis, Cerebral Palsy, Amyotrophic Lateral Sclerosis (ALS/Allyssa Gehrig's), Guillain-Almond Syndrome, Spina Bifida, Paralysis, Peripheral Neuropathy, Reagan's Palsy, Subdural Hematoma, Migraine, Spinal Cord Injury or Traumatic Brain Injury CARDIAC: Positive Cardiac Disorders, Coronary Artery Disease, Atherosclerotic Heart Disease, Peripheral Vascular Disease, Hypercholesterolemia, Edema and Hypertension; Negative Cardiac Arrhythmia, Atrial Fibrillation, Angina, Heart Murmur, Aneurysm, Congestive Heart Failure, Congenital Heart Disease, Valvular Heart Disease, Rheumatic Fever, Cardiomyopathy, Pericarditis, Cellulitis, Deep Vein Thrombosis, Hypotension or Varicose Veins RESPIRATORY: Negative Chronic Obstructive Pulmonary Disease (COPD), Asthma, Bronchitis, Emphysema, Pneumonia, Pulmonary Fibrosis, Cystic Fibrosis, Tuberculosis, Pulmonary Embolism, Pulmonary Edema or Sleep Apnea GASTROINTESTINAL: Positive Gastrointestinal Disorders and Gall Bladder Disease; Negative Hepatitis, Cirrhosis, Pancreatitis, Celiac Disease, Gastrointestinal Bleed, Esophageal Varices, [place]'s Esophagus, Colitis, Ulcerative Colitis, Diverticulitis, Diverticulosis, Ulcer, Colorectal Cancer, Irritable Bowel, Crohn's Disease, Obstructive Bowel, Hiatal Hernia, Hemorrhoids, Gastroesophageal Reflux Disease or Obesity GENITOURINARY: Positive Genitourinary Disorders, Renal Disease and Kidney Stones; Negative Polycystic Kidney Disease, Neurogenic Bladder, Inguinal Hernia, Dialysis, Prostate Cancer or Benign Prostatic Hyperplasia REPRODUCTIVE: Negative Fibroids or Testicular Cancer MUSCULOSKELETAL: Positive Musculoskeletal Disorders, Arthritis and Fractures; Negative Muscular Dystrophy, Myasthenia Gravis, Marfan's Syndrome, Bone Cancer, Rheumatoid Arthritis, Osteoporosis, Degenerative Disk Disease, Gout, Scoliosis, Carpal Tunnel Syndrome, Fibromyalgia, Degenerative Joint Disease, Osteomyelitis or Poliovirus ENT: Positive Cataracts and Head Trauma; Negative Glaucoma, Blind, Retinal Detachment, Macular Degeneration, Ear Infection, Deafness or Eye Prosthesis ENDOCRINE: Positive Endocrine Disorders and Diabetes Mellitus Type 2; Negative Diabetes Mellitus Type 1, Hypoglycemia, Pablo's Syndrome, Hawkins's Disease, Hyperthyroidism, Hypothyroidism, Parathyroid Disease, Pituitary Disease, Systemic Lupus Erythematosus, Syndrome of Inappropriate Antidiuretic Hormone (SIADH), Adrenal Disease or Graves' Disease HEMATOLOGIC: Negative Blood Disorders, Anemia, Leukemia, Hemophilia, Thalassemia, Sickle Cell Disease or Clotting Problems PSYCHO/SOCIAL: Positive Depression; Negative Psychiatric Problems, Schizophrenia, Recreational Drug Use, Bipolar Disorder, Anxiety, Behavior Problems, Self-Mutilation, Attention Deficit Disorder, Attention Deficit Hyperactivity Disorder, Depression, Post Traumatic Stress Disorder or Eating Disorder OTHER HISTORY: Positive Hospitalization, Falls, Chicken Pox, Measles, Mumps and Cancer; Negative Autoimmune Disease, Down Syndrome, Autism, Developmental Delay, Shingles, Blood Transfusions, Blood Transfusion Reaction, Anesthesia Reactions, Organ Transplant, Chemotherapy, Radiation Therapy, Hyperbaric Therapy, MRSA, VRSA, Vancomycin-Resistant Enterococci, Human Immunodeficiency Virus (HIV), Rubella (Sinhala Measles), Pertussis, Clostridium Difficile, Colorectal Cancer, Lung Cancer, Ovarian Cancer, Prostate Cancer or Testicular Cancer Family History FAMILY HISTORY: Positive Family Respiratory Disorders, Family Cancer and Family Surgery; Negative Family Psychiatric Problems, Family Cardiac Disorders, Family Gastrointestinal Problems or Family Anesthesia Reaction Surgical History SURGICAL: Positive Cardiac Surgery, Vascular Surgery, Cardiac Catheterization, Angiogram, Eye Surgery, Abdominal Surgery, Amputation and Vasectomy; Negative Open Heart Surgery, Coronary Artery Bypass Graft, Valve Replacement, Coronary Stent, Pacemaker, Auto Implanted Cardiovert Defib, Carotid Endarterectomy, Endocrine Surgery, Thyroidectomy, Ear Surgery, Tympanostomy Tube, Nose Surgery, Oral Surgery, Tonsillectomy, Adenoidectomy, Cochlear Implant, Corneal Transplant, Throat Surgery, Tracheostomy, Gastric Bypass Surgery, Gastrostomy, Bowel Surgery, Nephrectomy, Transurethral Resection, Joint Replacement, Open Reduction Internal Fixation, Arthroscopy, Neurologic Surgery, Brain Shunt or Organ Transplant Social History SMOKING STATUS: Former smoker ED Exam General Limitations: Present no limitations General appearance: Present alert and in no apparent distress Head Head exam: Present atraumatic and normocephalic Eye Eye exam: Present normal appearance and EOMI; Absent scleral icterus ENT ENT exam: Present normal exam, normal oropharynx and mucous membranes moist Neck Neck exam: Present normal inspection and full ROM Chest Chest inspection: Present normal inspection and symmetric chest wall rise Respiratory Respiratory exam: Present normal lung sounds bilaterally; Absent respiratory distress or wheezes Cardiovascular Cardiovascular exam: Present regular rate and +S1 Abdominal Exam Abdominal exam: Present soft; Absent distention, tenderness or guarding Rectal Exam Rectal exam: Present deferred Expanded Exam exam: Present other (Zarate catheter in place with approximately 300 cc of dark, cola colored urine.) Extremities Exam Extremities exam: Present normal inspection and full ROM Back Exam Back exam: Absent CVA tenderness (R) or CVA tenderness (L) Neurological Exam Neurological exam: Present alert and normal gait Psychiatric Psychiatric exam: Present normal affect Skin Skin exam: Present warm, dry and normal color Course Quality Measures none Orders Category Date Time Status Insert IV NOW Care 04/09/25 13:[address] abdomen pelvis wo con Stat Exams 04/09/25 13:26 Completed CBC Stat Lab 04/09/25 13:38 Completed CMP [Comprehensive Metabolic Panel] Stat Lab 04/09/25 13:38 Completed PSA [Prostate Specific Antigen] Stat Lab 04/09/25 13:38 Completed UA, C/S IF [Urinalysis, C/S if Indicated] Stat Lab 04/09/25 13:45 Completed Urine Culture Stat Lab 04/09/25 13:45 Completed CIPROFLOXACIN/D5w 400 MG IVPB [Cipro Ivpb] Med 04/09/25 15:09 Discontinued 400 mg in 200 ml IV X1 HYDROcodone*/APAP 5/325 [Stopover 5/325] Med 04/09/25 13:26 Discontinued 1 tab PO X1 ONE Levofloxacin/D5w 500 mg Ivpb [Levaquin Ivpb] Med 04/09/25 15:34 Discontinued 500 mg in 100 ml IV X1 Sodium Chloride 0.9% 500 ml [Ns] 500 ml Med 04/09/25 13:28 Discontinued IV 999 mls/hr Sodium Chloride 0.9% 500 ml [Ns] 500 ml Med 04/09/25 15:06 Discontinued IV 999 mls/hr Vital Signs Vital signs: Vital Signs Temperature 99.6 F 04/09/25 13:09 Pulse Rate 88 04/09/25 13:09 Respiratory Rate 16 04/09/25 13:09 Blood Pressure 129/80 04/09/25 13:09 Pulse Oximetry (%) 96 04/09/25 13:09 Oxygen Delivery Method Room Air 04/09/25 13:09 Pulse ox 96% on room air, within normal limits. Discharge Plan Plan Patient Disposition: HOME (Self Care) Discharge Disposition comment: stable Prescriptions/Referrals Prescriptions/Med Rec: No Action glimepiride [Amaryl] 4 MG tablet 2 mg PO BID Qty: 0 gabapentin 300 mg Capsule 300 mg PO BID hydrochlorothiazide 25 mg Tablet 25 mg PO DAILY ezetimibe [Zetia] 10 mg Tablet 10 mg PO HS cilostazol 100 mg Tablet 100 mg PO BID lisinopril 10 mg Tablet 10 mg PO QDAY pitavastatin calcium [Livalo] 2 mg Tablet 2 mg PO QDAY hydrocodone-acetaminophen 5-325 mg Tablet 1 tab PO Q4H PRN (Reason: Pain) dapagliflozin propanediol [Farxiga] 10 mg Tablet 10 mg PO QDAY Referrals: Julissa Hendrix MD [Primary Care Provider] - In 1 week Problem List Clinical Impression: Cystitis, Nephrolithiasis Impression comment: Take Keflex twice daily as prescribed for urinary tract infection. Follow-up with oncologist tomorrow as planned and have repeat labs drawn to check for kidney function. Return to the ED if your symptoms worsen or change. Patient/Caregiver Discharge Instructions Education Materials: ED Bladder Infection, Male (Adult), ED Kidney Stone w/ Colic Print Language: Armenian Stand Alone Forms: Shannon Award Info., Patient Portal Info Letter PA/CHARMAINE Supervising Physician ALFREDO/CHARMAINE Supervising Physician: Dr. [place] JEAN BAPTISTE Clinical Information Provided by patient and family ([place].) Medical Records Reviewed [facility] Meds/Rx Considered, not Ordered Describe details: IV antibiotic ordered. Chronic Illness/Social Conditions which may negatively complicate care or outcome(s)-explain: None or not applicable EKG EKG not done Lab Interpretation Labs: interpreted by ct Lab(s) interpretation(s): Mild leukocytosis. Uptrending renal creatinine pointing towards renal insufficiency. Otherwise no gross electrolyte abnormalities or evidence of endorgan damage. Imaging Imaging interpretation: see narrative above Provider imaging interpretation(s): Renal calculi right sided with mild hydronephrosis. Radiology reports / interpretation(s): Bilateral renal calculi Mild to moderate right hydronephrosis secondary to 5.6 mm proximal to mid right ureteral calculus Medication Administration(s) Medication Administration History Discontinued Medications Hydrocodone Bitart/Acetaminophen (Hydrocodone/Apap 5/325 Tablet) 1 tab PO X1 ONE Stop: 04/09/25 13:27 Last Admin: 04/09/25 13:32 Dose: 1 tab Documented By: MF Sodium Chloride (Ns) 500 mls @ 999 mls/hr IV .Q31M ONE Stop: 04/09/25 13:58 Last Infusion: 04/09/25 17:34 Dose: Infused Documented By: Admin: 04/09/25 17:03 Dose: 999 mls/hr Documented By: EF Sodium Chloride (Ns) 500 mls @ 999 mls/hr IV .Q31M ONE Stop: 04/09/25 15:36 Last Infusion: 04/09/25 17:35 Dose: Infused Documented By: Admin: 04/09/25 17:04 Dose: 999 mls/hr Documented By: EF Ciprofloxacin/Dextrose (Cipro Ivpb) 400 mg in 200 mls @ 200 mls/hr IV X1 ONE Stop: 04/09/25 16:08 Last Admin: 04/09/25 16:48 Dose: Not Given Documented By: EF Non-Admin Reason: Cancelled by Provider Levofloxacin/Dextrose (Levaquin Ivpb) 500 mg in 100 mls @ 100 mls/hr IV X1 ONE Stop: 04/09/25 16:33 Last Infusion: 04/09/25 18:04 Dose: Infused Documented By: Admin: 04/09/25 17:04 Dose: 100 mls/hr Documented By: EF Diagnosis Differential diagnosis: Nephrolithiasis, hydronephrosis, renal insufficiency, flank pain, hematuria Differential dx and/or dx ruled out: Does not fit clinical picture of sepsis. Most likely dx, and/or detailed dx discussion: Nephrolithiasis, renal insufficiency, hematuria, cystitis. Dispositon Disposition: Discharge Home Disposition comments: Plan to continue close outpatient follow-up with oncology and repeat labs within the next 2 to 3 days.
[2025-04-09 14:06] LABS: Collection Type, Urine Clean Catch
[2025-04-09 14:12] LABS: Prostate Specific Antigen 0.81 ng/mL (0-4.00)
[2025-04-09 14:15] LABS: Alanine Aminotransferase 19 U/L (10-49); Albumin, Serum 4.1 gm/dL (3.4-4.8); Albumin/Globulin Ratio 1.7 (1.2-2.2); Alkaline Phosphatase 78 U/L (46-116); Anion Gap 9 (7-16); BUN/Creatinine Ratio 12 Ratio (12-20); Bilirubin,Total 0.8 mg/dL (0.3-1.2); Blood Urea Nitrogen 23 mg/dL (9-23); Carbon Dioxide 25.6 mMol/L (20.0-31.0); Chloride 103 mMol/L (98-107); Creatinine (Component) 1.9 mg/dL (0.6-1.3); Globulin 2.4 gm/dL (2.3-3.5); Glucose 118 mg/dL (74-106); Osmolality,Calculated 280 (275-295); Potassium 4.2 mMol/L (3.4-5.1); Sodium 138 mMol/L (136-145); Total Protein 6.5 gm/dL (5.7-8.2); eGFR 36 See Note
[2025-04-09 14:53] LABS: Bilirubin,Urine Negative (Negative); Blood,Urine 3+ (Negative); Glucose, Urine 4+ (Negative); Ketones,Urine 1+ (Negative); Leukocyte Esterase,Urine Positive (Negative); Nitrite,Urine Negative (Negative); PH,Urine 5.5 (5.0-7.0); Protein,Urine 1+ (Neg - Trace); RBC,Urine 913 /hpf (0-3); Specific Gravity,Urine 1.019 (1.001-1.035); Squamous Epithelial Cell,Urine 1 /hpf (0-5); Urobilinogen,Urine Negative mg/dL (0.0-1.0); WBC,Urine 71 /hpf (0-5)
[2025-04-09 14:58] LABS: Clarity,Urine Hazy (Clear/Hazy); Color,Urine Lt-Red (Lt Yel-Yel); Culture Indicated,Urine Yes
[2025-04-09 16:45] VITALS: BP 113/69; PULSE 84; RESP 18; TEMP 36.8; O2SAT 98
[2025-04-09] MEDS: SODIUM CHLORIDE 0.9% 500 ML 500 ML 999 ML IV ×2 (17:03→17:04)
[2025-04-09] MEDS: LEVOFLOXACIN/D5W 500 MG IVPB 500 MG/100 ML BAG 100 MG IV (17:04)
[2025-04-09 18:10] VITALS: BP 140/77; PULSE 85; RESP 16; O2SAT 100
== END 2025-04-09 18:12 | disposition home or self-care (01) ==
PROVIDERS: Physician Assistant; Emergency Provider Emergency Medicine; PCP Family Medicine
DX: N30.90 Cystitis, unspecified without hematuria (principal); N13.2 Hydronephrosis with renal and ureteral calculous obstruction; N32.89 Other specified disorders of bladder; C43.9 Malignant melanoma of skin, unspecified
CPT/HCPCS: 36415; 74176; 80053; 81001; 84153; 85025; 87077; 87086; 87186; 96365; 99284; J1956; J7040; A9270

== ENCOUNTER 2025-04-16 09:20 | Outpatient (RCR) | payer MEDICARE, OTHER, SELFPAY ==
[2025-04-08 12:06] LABS: Basophils % (Auto) 0 % (0-2.5); Eosinophils % (Auto) 0 % (0-10); Hematocrit 42.9 % (41.0-53.0); Immature Granulocytes % (Auto) 0 % (0-0); Immature Granulocytes Auto 0.04 Thou/mm3 (0.00-0.00); Lymphocytes # (Auto) 0.8 Thou/mm3 (1.0-4.8); Lymphocytes % (Auto) 8 % (10-50); Mean Corpuscular Volume 89 fL (80-100); Monocytes # (Auto) 0.9 Thou/mm3 (0.0-0.8); Monocytes % (Auto) 9 % (0-12); Neutrophils # (Auto) 8.8 Thou/mm3 (1.8-7.7); Neutrophils % (Auto) 83 % (37-80); Nucleated Red Blood Cell % 0 /100 WBC (0); Platelet Count 224 Thou/mm3 (140-440); Red Blood Count 4.84 Miln/mm3 (4.50-5.90); White Blood Count 10.6 Thou/mm3 (3.8-10.6)
[2025-04-08 12:27] LABS: Alanine Aminotransferase 19 U/L (10-49); Albumin, Serum 3.9 gm/dL (3.4-4.8); Albumin/Globulin Ratio 1.9 (1.2-2.2); Alkaline Phosphatase 87 U/L (46-116); Anion Gap 14 (7-16); Aspartate Amino Transferase 30 U/L (0-34); BUN/Creatinine Ratio 18 Ratio (12-20); Bilirubin,Total 0.8 mg/dL (0.3-1.2); Blood Urea Nitrogen 28 mg/dL (9-23); Calcium 8.7 mg/dL (8.3-10.6); Calcium (Corrected) 8.8 mg/dL (8.5-10.1); Carbon Dioxide 21.9 mMol/L (20.0-31.0); Carcinoembryonic Antigen 1.2 ng/mL (0.0-5.0); Chloride 103 mMol/L (98-107); Creatinine (Component) 1.6 mg/dL (0.6-1.3); Globulin 2.1 gm/dL (2.3-3.5); Glucose 211 mg/dL (74-106); Osmolality,Calculated 289 (275-295); Potassium 3.8 mMol/L (3.4-5.1); Sodium 139 mMol/L (136-145); Thyroid Stimulating Hormone 1.58 uIU/mL (0.55-4.78); eGFR 44 See Note
[2025-04-15 11:00] LABS: Basophils % (Auto) 0 % (0-2.5); Eosinophils # (Auto) 0.3 Thou/mm3 (0.0-0.5); Eosinophils % (Auto) 3 % (0-10); Hematocrit 43.1 % (41.0-53.0); Hemoglobin 14.9 g/dL (13.5-16.0); Immature Granulocytes % (Auto) 0 % (0-0); Immature Granulocytes Auto 0.03 Thou/mm3 (0.00-0.00); Lymphocytes # (Auto) 1.2 Thou/mm3 (1.0-4.8); Lymphocytes % (Auto) 13 % (10-50); Mean Corpuscular HGB Conc 34.6 g/dl (31.0-37.0); Mean Corpuscular Hemoglobin 31.2 pg (25.0-35.0); Mean Corpuscular Volume 90 fL (80-100); Monocytes % (Auto) 11 % (0-12); Neutrophils # (Auto) 6.5 Thou/mm3 (1.8-7.7); Neutrophils % (Auto) 72 % (37-80); Nucleated Red Blood Cell % 0 /100 WBC (0); Platelet Count 284 Thou/mm3 (140-440); RDW Standard Deviation 42.5 fL (35.1-43.9); Red Blood Count 4.77 Miln/mm3 (4.50-5.90)
[2025-04-15 11:16] LABS: Carcinoembryonic Antigen 1.7 ng/mL (0.0-5.0)
[2025-04-15 11:19] LABS: Alanine Aminotransferase 38 U/L (10-49); Albumin, Serum 3.8 gm/dL (3.4-4.8); Albumin/Globulin Ratio 1.7 (1.2-2.2); Alkaline Phosphatase 73 U/L (46-116); Anion Gap 10 (7-16); Aspartate Amino Transferase 34 U/L (0-34); BUN/Creatinine Ratio 18 Ratio (12-20); Bilirubin,Total 0.5 mg/dL (0.3-1.2); Blood Urea Nitrogen 24 mg/dL (9-23); Calcium 8.7 mg/dL (8.3-10.6); Calcium (Corrected) 8.9 mg/dL (8.5-10.1); Carbon Dioxide 25.5 mMol/L (20.0-31.0); Chloride 105 mMol/L (98-107); Creatinine (Component) 1.3 mg/dL (0.6-1.3); Globulin 2.2 gm/dL (2.3-3.5); Glucose 150 mg/dL (74-106); Osmolality,Calculated 286 (275-295); Potassium 3.8 mMol/L (3.4-5.1); Sodium 140 mMol/L (136-145); Thyroid Stimulating Hormone 2.26 uIU/mL (0.55-4.78); eGFR 56 See Note
[2025-04-16 12:41] LABS: Collection Type, Urine Catheter
[2025-04-16 12:58] LABS: Bacteria,Urine Rare; Bilirubin,Urine Negative (Negative); Blood,Urine Trace (Negative); Clarity,Urine Clear (Clear/Hazy); Color,Urine Lt-Yellow (Lt Yel-Yel); Glucose, Urine 4+ (Negative); Ketones,Urine Negative (Negative); Leukocyte Esterase,Urine Negative (Negative); Nitrite,Urine Negative (Negative); Protein,Urine Negative (Neg - Trace); RBC,Urine 4 /hpf (0-3); Specific Gravity,Urine 1.023 (1.001-1.035); Squamous Epithelial Cell,Urine < 1 /hpf (0-5); Urobilinogen,Urine Negative mg/dL (0.0-1.0); WBC,Urine 4 /hpf (0-5)
== END 2025-04-27 23:59 | disposition home or self-care (01) ==
LOC: SCTC 09:20
PROVIDERS: PCP Family Medicine; Referring Provider Family Medicine; Visit Provider Internal Medicine Hematology & Oncology
DX: Z51.11 Encounter for antineoplastic chemotherapy (principal); C43.62 Malignant melanoma of left upper limb, including shoulder; L30.9 Dermatitis, unspecified; R42 Dizziness and giddiness; R60.9 Edema, unspecified; D75.1 Secondary polycythemia
CPT/HCPCS: 36591; 78815; 80053; 81001; 82378; 84443; 84450; 85025; 87077; 87086; 87186; 96360; 96361; 96413; A4216; A9552; J1642; J7030; J7040; J7050; J9271

== ENCOUNTER → 2025-04-22 | Outpatient (CLI) | payer MEDICARE, OTHER, SELFPAY ==
[2025-04-22 09:35] LABS: Collection Type, Urine Clean Catch; Squamous Epithelial Cell,Urine 0 /hpf (0-5)
--- NOTE | 2025-04-22 09:41 | XR_ITS ---
Examination: Abdomen AP single view Technique: AP portable supine abdomen, single view Exam date and time: April 22, 2025 1002 hours INDICATIONS: Right-sided flank and abdominal pain beginning 2 weeks ago, history bilateral renal calculi, 5.6 cm mid right ureteral calculus on CT stone study April 09, 2025 FINDINGS: Tiny bilateral renal calculi No definite ureteral calculus on the current exam IMPRESSION: No definite ureteral calculus on the current exam
[2025-04-22 10:30] LABS: Bilirubin,Urine Negative (Negative); Blood,Urine 2+ (Negative); Clarity,Urine Clear (Clear/Hazy); Color,Urine Lt-Yellow (Lt Yel-Yel); Glucose, Urine 4+ (Negative); Ketones,Urine Trace (Negative); Leukocyte Esterase,Urine Positive (Negative); Nitrite,Urine Positive (Negative); PH,Urine 5.5 (5.0-7.0); Protein,Urine Trace (Neg - Trace); RBC,Urine 7 /hpf (0-3); Specific Gravity,Urine 1.022 (1.001-1.035); Urobilinogen,Urine Negative mg/dL (0.0-1.0); WBC,Urine 9 /hpf (0-5)
[2025-04-22 10:43] LABS: Anion Gap 10 (7-16); BUN/Creatinine Ratio 18 Ratio (12-20); Blood Urea Nitrogen 23 mg/dL (9-23); Calcium 9.1 mg/dL (8.3-10.6); Carbon Dioxide 28.1 mMol/L (20.0-31.0); Chloride 102 mMol/L (98-107); Creatinine (Component) 1.3 mg/dL (0.6-1.3); Glucose 94 mg/dL (74-106); Osmolality,Calculated 283 (275-295); Potassium 4.2 mMol/L (3.4-5.1); Sodium 140 mMol/L (136-145); eGFR 56 See Note
== END | disposition home or self-care (01) ==
LOC: COPL 09:00
PROVIDERS: PCP Family Medicine; Referring Provider Family Medicine; Visit Provider Radiology Diagnostic Radiology
DX: N20.1 Calculus of ureter (principal); N18.31 Chronic kidney disease, stage 3a; N30.01 Acute cystitis with hematuria
CPT/HCPCS: 36415; 74018; 80048; 81001; 87086

== ENCOUNTER 2025-05-28 12:49 | Outpatient (RCR) | payer MEDICARE, OTHER, SELFPAY ==
[2025-04-29 11:57] LABS: Basophils # (Auto) 0.0 Thou/mm3 (0.0-0.2); Basophils % (Auto) 1 % (0-2.5); Eosinophils # (Auto) 0.5 Thou/mm3 (0.0-0.5); Eosinophils % (Auto) 7 % (0-10); Hematocrit 43.8 % (41.0-53.0); Hemoglobin 14.7 g/dL (13.5-16.0); Immature Granulocytes Auto 0.02 Thou/mm3 (0.00-0.00); Lymphocytes # (Auto) 1.7 Thou/mm3 (1.0-4.8); Lymphocytes % (Auto) 23 % (10-50); Mean Corpuscular HGB Conc 33.6 g/dl (31.0-37.0); Mean Corpuscular Hemoglobin 31.0 pg (25.0-35.0); Mean Corpuscular Volume 92 fL (80-100); Monocytes # (Auto) 0.8 Thou/mm3 (0.0-0.8); Monocytes % (Auto) 11 % (0-12); Neutrophils # (Auto) 4.3 Thou/mm3 (1.8-7.7); Neutrophils % (Auto) 58 % (37-80); Nucleated Red Blood Cell # 0.00 Thou/mm3 (0.00-0.00); Nucleated Red Blood Cell % 0 /100 WBC (0); Platelet Count 263 Thou/mm3 (140-440); RDW Standard Deviation 43.5 fL (35.1-43.9); Red Blood Count 4.74 Miln/mm3 (4.50-5.90); White Blood Count 7.4 Thou/mm3 (3.8-10.6)
[2025-04-29 12:22] LABS: Alanine Aminotransferase 19 U/L (10-49); Albumin, Serum 3.7 gm/dL (3.4-4.8); Albumin/Globulin Ratio 1.7 (1.2-2.2); Alkaline Phosphatase 88 U/L (46-116); Anion Gap 7 (7-16); Aspartate Amino Transferase 26 U/L (0-34); BUN/Creatinine Ratio 15 Ratio (12-20); Bilirubin,Total 0.7 mg/dL (0.3-1.2); Blood Urea Nitrogen 20 mg/dL (9-23); Calcium 8.6 mg/dL (8.3-10.6); Calcium (Corrected) 8.8 mg/dL (8.5-10.1); Carbon Dioxide 26.9 mMol/L (20.0-31.0); Chloride 106 mMol/L (98-107); Creatinine (Component) 1.3 mg/dL (0.6-1.3); Free T3 2.7 pg/mL (2.3-4.2); Globulin 2.2 gm/dL (2.3-3.5); Glucose 181 mg/dL (74-106); Osmolality,Calculated 287 (275-295); Potassium 4.0 mMol/L (3.4-5.1); Sodium 140 mMol/L (136-145); Thyroid Stimulating Hormone 2.07 uIU/mL (0.55-4.78); Total Protein 5.9 gm/dL (5.7-8.2); eGFR 56 See Note
[2025-05-06 15:45] LABS: Basophils # (Auto) 0.0 Thou/mm3 (0.0-0.2); Basophils % (Auto) 0 % (0-2.5); Eosinophils # (Auto) 0.6 Thou/mm3 (0.0-0.5); Eosinophils % (Auto) 6 % (0-10); Hematocrit 41.6 % (41.0-53.0); Hemoglobin 14.6 g/dL (13.5-16.0); Immature Granulocytes Auto 0.02 Thou/mm3 (0.00-0.00); Lymphocytes # (Auto) 1.5 Thou/mm3 (1.0-4.8); Lymphocytes % (Auto) 18 % (10-50); Mean Corpuscular HGB Conc 35.1 g/dl (31.0-37.0); Mean Corpuscular Hemoglobin 31.3 pg (25.0-35.0); Mean Corpuscular Volume 89 fL (80-100); Monocytes # (Auto) 0.9 Thou/mm3 (0.0-0.8); Monocytes % (Auto) 10 % (0-12); Neutrophils # (Auto) 5.6 Thou/mm3 (1.8-7.7); Neutrophils % (Auto) 65 % (37-80); Nucleated Red Blood Cell # 0.00 Thou/mm3 (0.00-0.00); Nucleated Red Blood Cell % 0 /100 WBC (0); Platelet Count 201 Thou/mm3 (140-440); RDW Standard Deviation 42.1 fL (35.1-43.9); Red Blood Count 4.67 Miln/mm3 (4.50-5.90); White Blood Count 8.6 Thou/mm3 (3.8-10.6)
[2025-05-06 16:06] LABS: Alanine Aminotransferase 22 U/L (10-49); Albumin, Serum 3.7 gm/dL (3.4-4.8); Albumin/Globulin Ratio 1.7 (1.2-2.2); Alkaline Phosphatase 101 U/L (46-116); Anion Gap 8 (7-16); Aspartate Amino Transferase 24 U/L (0-34); BUN/Creatinine Ratio 18 Ratio (12-20); Bilirubin,Total 0.5 mg/dL (0.3-1.2); Blood Urea Nitrogen 25 mg/dL (9-23); Calcium 8.5 mg/dL (8.3-10.6); Calcium (Corrected) 8.7 mg/dL (8.5-10.1); Carbon Dioxide 28.1 mMol/L (20.0-31.0); Chloride 105 mMol/L (98-107); Creatinine (Component) 1.4 mg/dL (0.6-1.3); Globulin 2.2 gm/dL (2.3-3.5); Glucose 286 mg/dL (74-106); Osmolality,Calculated 295 (275-295); Potassium 4.1 mMol/L (3.4-5.1); Sodium 141 mMol/L (136-145); Thyroid Stimulating Hormone 2.49 uIU/mL (0.55-4.78); Total Protein 5.9 gm/dL (5.7-8.2); eGFR 51 See Note
[2025-05-06 16:09] LABS: Carcinoembryonic Antigen 2.1 ng/mL (0.0-5.0)
--- NOTE | 2025-05-17 21:51 | CTCFLWUP_ITS ---
Patient: TOM MEEKS : 1945 Page 7 of 10 FOLLOW UP NOTE DATE OF SERVICE: 04/28/2025 NAME: TOM MEKES ACCOUNT: [id number] : 1945 AGE: 79 INTERVAL HISTORY: Tom, a male with stage 2 malignant melanoma diagnosed in 2019, presented for follow-up with concerns of foot swelling, vertigo, and eczema. His history includes polycythemia and skin cancer. Currently on Keytruda immunotherapy, he recently discontinued hydrochlorothiazide and lisinopril due to vertigo symptoms. Physical exam revealed eczema, foot swelling, and a palpable left axilla lymph node. A new PET scan was ordered with pre/post IV hydration. Topical steroids were recommended for eczema instead of Kenalog injection. Sleep specialist referral was made for alternative sleep apnea treatment, and lifestyle modifications were suggested for peripheral edema and vertigo. Chief Complaint Follow-up for melanoma treatment, swollen feet for 1 week, ongoing vertigo History of Present Illness Tom Meeks, a patient with a history of stage 2 malignant melanoma diagnosed in 2019, presents for follow-up. He is currently undergoing immunotherapy for his melanoma. Mr. Meeks reports experiencing swelling in his feet for the past week, which he attributes to prolonged sitting with his feet down while entertaining company. He has also been experiencing ongoing vertigo, which started after a previous medical appointment where he received IV fluids. While the vertigo is not as severe as it was initially, it persists daily. His primary care physician has adjusted his medications, discontinuing hydrochlorothiazide and lisinopril, in an attempt to address the vertigo, but the patient reports only minimal improvement. The patient mentions struggling with sleep apnea treatment. He attempted to use a CPAP machine but found it uncomfortable and difficult to use, even after trying different masks. One mask caused an open wound on his nose. Due to his frustration with the device, he returned it to the provider. Mr. Meeks has been experiencing eczema, which his power plant operator apprentice proposed treating with a Kenalog injection. However, there were concerns about potential interactions with his ongoing Keytruda (immunotherapy) treatment. The patient also notes that the immunotherapy seems to be exacerbating his eczema symptoms. Regarding his cancer follow-up, Mr. Meeks had his last PET scan in August. He recently visited a contracts specialist who recommended the aforementioned Kenalog injection for his eczema. The patient continues to struggle with reaching certain areas of his body, particularly his back, for applying topical treatments. Medical History - Vertigo, ongoing - Polycythemia, likely from hypoxia - Stage 2 malignant melanoma of left superior upper back - Eczema - Skin cancer at age 19 Surgical History - Shave biopsy of left superior upper back for stage 2 malignant melanoma in 2019 - Biopsy of left axilla lymph node in 2020, inconclusive results Medications and Supplements - Keytruda (immunotherapy) - Hydrochlorothiazide - Discontinued due to possible connection with vertigo/dizziness - Lisinopril - Discontinued due to possible connection with vertigo/dizziness Social History - Living Situation: Lives with spouse - Exercise: Uses a lift chair that lays back, pedals outside - Social Support: Recently had company visiting, has a sister and nephew - Travel: Recently flew from [place] and [place] Review of Systems General: Positive for fatigue. Skin: Positive for eczema. Respiratory: Positive for difficulty using CPAP machine. Cardiovascular: Positive for lower extremity edema. Neurological: Positive for dizziness, vertigo. ONCOLOGY HISTORY:?[facility] Hx? 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 August 2020: Patent noticed a dark irregular margined lesion in the left upper back. 09/28/2020: Patient had shave biopsy of the lesion from the left superior lateral upper back. 10/19/2020: Wide excision of the left superior lateral upper back? 12/07/2020: PET CT scan? 12/08/2020: left axillary ultrasound? 12/08/2020: Ultrasound of the soft tissue of the left neck? 01/03/2021: Ultrasound-guided biopsy of the left axilla lymph node as well as left submental lymph node? 05/10/2021: Left breast ultrasound? 06/01/2021: PET CT scan? 01/29/2024: CT scan of the brain without contrast? 02/14/2024: PET/CT scan? 04/02/2024: Mr. Meeks had ultrasound-guided percutaneous biopsy of soft tissue mass posterior lateral left shoulder OTHER MEDICAL HISTORY/CONDITIONS: FAMILY HISTORY: ?Clone Family Hx? SOCIAL HISTORY: MEDICATIONS: 1. cilostazol - 50 mg 1 tab Twice a Day 2. ezetimibe - 10 mg 1 tab Daily 3. Farxiga - 10 mg 1 tab Each Day 4. gabapentin - 300 mg 1 tab Twice a Day 5. glimepiride - 2 mg tab Daily 6. HYDROcodone-acetaminophen - 7.5-325 mg 0.5 tab Twice a Day 7. Keflex - 500 mg Twice a Day 8. Livalo - 2 mg 1 tab Daily 9. triamcinolone acetonide - 0.05 % 1 gm Daily 10. vitamin I-funlijrddfrp-msvjukh - 500 mg 1 tab Daily?Palabra Meds? Medications Last Reconciled by Ximena Duke MA on 04/28/2025 ALLERGIES: SULFADIAZINE REVIEW OF SYSTEMS: A complete 14-point review of systems was performed and is negative except as noted in interval history. PHYSICAL EXAMINATION:?[facility] PE? VITAL SIGNS: Temperature?98.9, B/P?127/70, Oxygen?Saturation?99% PAIN: 0 - No pain Conjunctivae is pink. Oral cavity is dry. Posterior pharyngeal wall appears normal. No erythema or mass lesions noted. A 1 cm lymph node is palpable in left axilla he has very well-healed scar in the left scapular region. Chest clear to auscultation. No wheezes or rales audible. Abdomen is soft no hepatosplenomegaly palpable. Extremities no clubbing or cyanosis noted. LABORATORY DATA: I have personally reviewed and interpreted each of the patient?s relevant lab tests, abnormal findings are below: Date 04/29/25 05/06/25 ??WHITE?BLOOD?COUNT?(Thou/mm3) ? 8.6 ??RED?BLOOD?COUNT?(Miln/mm3) ? 4.67 ??HEMOGLOBIN?(gm/dl) ? 14.6 ??HEMATOCRIT?(%) ? 41.6 ??PLATELET?COUNT?(Thou/mm3) ? 201 ??NEUTROPHILS?%,?AUTO?(%) ? 65 ??LYMPH?%,?AUTO?(%) ? 18 ??NEUTROPHILS,?AUTO?(Thou/mm3) ? 5.6 ??GLUCOSE,RANDOM?(mg/dL) 181?H 286?H ??BLOOD?UREA?NITROGEN?(mg/dL) 20 25?H ??CREATININE?(mg/dL) 1.30 1.40?H ??SODIUM?(mmol/L) 140 141 ??POTASSIUM?(mmol/L) 4.0 4.1 ??CHLORIDE?(mmol/L) 106 105 ??CrCl?(CandG)?(ml/min) 62.07 58.92 ??AST/SGOT?(Unit/L) 26 24 ??ALT/SGPT?(Unit/L) 19 22 ??ALKALINE?PHOSPHATASE?(Unit/L) 88 101 ??BILIRUBIN,?TOTAL?(mg/dL) 0.7 0.5 ??PROTEIN?TOTAL?(gm/dl) 5.9 5.9 ??ALBUMIN,?SERUM?(gm/dl) 3.7 3.7 ??GLOBULIN?(gm/dl) 2.2?L 2.2?L ??ALBUMIN/GLOBULIN?RATIO 1.7 1.7 ??CALCIUM,?SERUM?(mg/dL) 8.6 8.5 ??CALCIUM?SERUM?(CORRECTED)?(mg/dL) 8.8 8.7 ??CEA?(O*)?(ng/ml) ? 2.1 ASSESSMENT/PLAN:?Alyx Collins Assessment/Plan? 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 S/p shave biopsy followed by wide excision. Patient: TOM Maradiaga : 1945 Page 7 of 7 patient is s/p resection of intrasnsit melanoma . . Oligometastatic disease PET CT scan since 02/14/2024) showed 2 lesions in the posterior left shoulder. Biopsy was positive for melanoma. [facility] Dr. Hans De Leon follows patient patient '5 recent PET SCAN shows showed a 15 mm hypermetabolic nodule posterior to the left upper humerus. Left axilla lymph node was not active on pet scan but is palpable It was biopsied in 2020 but was inconclusive I will like the patient to have excisional biopsy of axillary lymph node with his power plant operator apprentice to make sure it is not melanoma - labs are stable and will proceed with lnnumotherapy - new labs ordered before immunotherapy cont keytruda patient is okay to get and do not need to hold keytruda PET CT scan discussed and have no metastatic disease polycythemia likely from hypoxia ordered iqra-2 and epo level which are both negative Phlebotomize 1 unit to keep hematocrit below 45 Tom Meeks, male patient with a history of stage 2 malignant melanoma of left superior upper back diagnosed in 2019, currently on immunotherapy, presenting with concerns of eczema, foot swelling, and vertigo. Malignant Melanoma Assessment: Patient has a history of stage 2 malignant melanoma of the left superior upper back, initially detected in 2019. Two lesions were identified on the posterior left shoulder. A 15-millimeter hypermetabolic nodule was noted posterior to the left upper humerus. Left axilla lymph node was palpable but not active on PET scan; biopsy in 2020 was inconclusive. Patient is currently on immunotherapy. Last PET scan was performed in August. Given the ongoing treatment and need for monitoring, a new PET scan is warranted to assess disease status and progression. Plan: - Order new PET scan - Schedule IV fluids before and after PET scan to manage contrast dye effects - Book appointment for IV fluids early head start teacher on PET scan day - Instruct patient to continue drinking water after scan - Schedule additional IV fluids for the day following PET scan - Continue current immunotherapy regimen - Advise patient to follow up with [facility] [place] if disease progresses, for potential clinical trials - Avoid use of systemic steroids (e.g., Kenalog injection) due to potential interference with immunotherapy - Use only topical steroid ointments for skin issues Eczema Assessment: Patient is experiencing eczema, likely exacerbated by immunotherapy treatment for melanoma. employment service specialist recommended Kenalog injection, which was declined due to potential interference with Keytruda (immunotherapy). Plan: - Apply topical steroid ointment to affected areas - Recommend use of herbal oil for massage on eczematous areas, particularly on the back - Instruct family members to assist with application if patient cannot reach affected areas Polycythemia Assessment: Patient has a history of polycythemia, likely secondary to hypoxia. IQRA and EPO were negative. Patient was started on phlebotomy. CPAP was attempted but discontinued due to poor fit and patient discomfort. Elevated hemoglobin levels suggest ongoing nocturnal hypoxia. Plan: - Refer patient back to Dr. Ashby (sleep specialist) to discuss alternative treatment options for sleep apnea - Consider nocturnal oxygen therapy - Educate patient on benefits of oxygen therapy for longevity and cognitive function - Recommend using oxygen while watching TV in the evening if continuous nocturnal use is not tolerated - Continue monitoring hemoglobin levels Peripheral Edema Assessment: Patient reports bilateral foot swelling for the past week, likely exacerbated by prolonged sitting with feet dependent during recent social gatherings and travel. Plan: - Educate patient on elevation of legs, especially when sitting or lying down - Recommend leg exercises: walking feet up the wall while lying on bed - Suggest foot massage for 5 minutes daily - Consider use of vibrating foot massager - Monitor for worsening edema; may consider Lasix if edema persists or worsens Vertigo Assessment: Patient experiencing ongoing vertigo, possibly related to recent medication changes. Hydrochlorothiazide and lisinopril were discontinued by another provider to address potential low blood pressure contribution. Symptoms have improved but persist. Differential diagnosis includes postural hypotension, given patient's age and vascular status. Plan: - Educate patient on proper techniques for positional changes: - Wiggle toes and move feet before standing - Gradual position changes from lying to sitting to standing - Follow up with primary care provider regarding medication adjustments and vertigo management - Consider referral for physical therapy to address balance issues and provide exercises ORDERS: Order # Description [id number] Follow Up Appointment [id number] CBC + Comprehensive Metabolic Panel + CEA [id number] Lab Appointment RETURN TO CLINIC: I reviewed the diagnosis, prognosis, and recommended treatment/procedure options with the patient (and/or their legal sales representative consultant), including the potential benefits, risks, side effects and alternative therapies. We also discussed the option of no treatment and the possibility of clinical trial participation, if applicable. All questions were addressed, and they demonstrated understanding. They provided informed consent to proceed with the proposed plan of care. BILLING AND COMPLIANCE: I reviewed external records from providers outside my specialty as summarized above. I spent a total of 50 minutes on this patient?s care on the day of their visit excluding time spent related to any billed procedures. This time includes time spent with the patient as well as time spent documenting in the medical record, reviewing patients records and tests, obtaining history, placing orders, communicating with other healthcare professionals, counseling the patient, family or caregiver, and/or care coordination for the diagnoses above. Electronically Signed by: Nick Collins MD T: 9:47 PM CC: Van?Rosibel,? PCP: Julissa Kimbrough Referring: Julissa Kimbrough This document was completed utilizing speech recognition software. Grammatical errors, random word insertions, pronoun errors, and incomplete sentences are an occasional consequence of this system due to software limitations, ambient noise, and hardware issues. Any formal questions or concerns about the content, text or information contained within the body of this dictation should be directly addressed to the provider for clarification.
[2025-05-27 10:49] LABS: Basophils # (Auto) 0.0 Thou/mm3 (0.0-0.2); Basophils % (Auto) 0 % (0-2.5); Eosinophils # (Auto) 0.3 Thou/mm3 (0.0-0.5); Eosinophils % (Auto) 3 % (0-10); Hematocrit 45.5 % (41.0-53.0); Hemoglobin 15.4 g/dL (13.5-16.0); Immature Granulocytes Auto 0.03 Thou/mm3 (0.00-0.00); Lymphocytes # (Auto) 2.5 Thou/mm3 (1.0-4.8); Lymphocytes % (Auto) 26 % (10-50); Mean Corpuscular HGB Conc 33.8 g/dl (31.0-37.0); Mean Corpuscular Hemoglobin 31.1 pg (25.0-35.0); Mean Corpuscular Volume 92 fL (80-100); Monocytes # (Auto) 1.0 Thou/mm3 (0.0-0.8); Monocytes % (Auto) 10 % (0-12); Neutrophils # (Auto) 5.8 Thou/mm3 (1.8-7.7); Neutrophils % (Auto) 60 % (37-80); Nucleated Red Blood Cell # 0.00 Thou/mm3 (0.00-0.00); Nucleated Red Blood Cell % 0 /100 WBC (0); Platelet Count 204 Thou/mm3 (140-440); RDW Standard Deviation 43.0 fL (35.1-43.9); Red Blood Count 4.95 Miln/mm3 (4.50-5.90); White Blood Count 9.6 Thou/mm3 (3.8-10.6)
[2025-05-27 11:10] LABS: Free T3 2.7 pg/mL (2.3-4.2)
[2025-05-27 11:11] LABS: Alanine Aminotransferase 16 U/L (10-49); Albumin, Serum 4.0 gm/dL (3.4-4.8); Albumin/Globulin Ratio 1.6 (1.2-2.2); Alkaline Phosphatase 79 U/L (46-116); Anion Gap 7 (7-16); Aspartate Amino Transferase 21 U/L (0-34); BUN/Creatinine Ratio 12 Ratio (12-20); Bilirubin,Total 0.9 mg/dL (0.3-1.2); Blood Urea Nitrogen 16 mg/dL (9-23); Calcium 9.2 mg/dL (8.3-10.6); Calcium (Corrected) 9.2 mg/dL (8.5-10.1); Carbon Dioxide 27.4 mMol/L (20.0-31.0); Chloride 105 mMol/L (98-107); Creatinine (Component) 1.3 mg/dL (0.6-1.3); Globulin 2.5 gm/dL (2.3-3.5); Glucose 136 mg/dL (74-106); Osmolality,Calculated 280 (275-295); Potassium 4.0 mMol/L (3.4-5.1); Sodium 139 mMol/L (136-145); Thyroid Stimulating Hormone 2.80 uIU/mL (0.55-4.78); Total Protein 6.5 gm/dL (5.7-8.2); eGFR 56 See Note
== END 2025-05-28 23:59 | disposition home or self-care (01) ==
LOC: SCTC 12:49
PROVIDERS: PCP Family Medicine; Referring Provider Family Medicine; Visit Provider Internal Medicine Hematology & Oncology
DX: Z51.11 Encounter for antineoplastic chemotherapy (principal); C43.62 Malignant melanoma of left upper limb, including shoulder; L30.9 Dermatitis, unspecified; R42 Dizziness and giddiness; G47.30 Sleep apnea, unspecified; D75.1 Secondary polycythemia; R60.0 Localized edema
CPT/HCPCS: 36430; 36591; 80053; 82378; 84443; 84481; 85025; 96413; 99212; A4216; J1642; J7040; J7050; J9271; G0463

== ENCOUNTER 2025-06-18 12:57 | Outpatient (RCR) | payer MEDICARE, OTHER, SELFPAY ==
[2025-06-17 12:11] LABS: Basophils # (Auto) 0.0 Thou/mm3 (0.0-0.2); Basophils % (Auto) 0 % (0-2.5); Eosinophils # (Auto) 0.3 Thou/mm3 (0.0-0.5); Eosinophils % (Auto) 4 % (0-10); Hematocrit 44.7 % (41.0-53.0); Hemoglobin 15.2 g/dL (13.5-16.0); Immature Granulocytes Auto 0.03 Thou/mm3 (0.00-0.00); Lymphocytes # (Auto) 1.3 Thou/mm3 (1.0-4.8); Lymphocytes % (Auto) 15 % (10-50); Mean Corpuscular HGB Conc 34.0 g/dl (31.0-37.0); Mean Corpuscular Hemoglobin 31.3 pg (25.0-35.0); Mean Corpuscular Volume 92 fL (80-100); Monocytes # (Auto) 0.9 Thou/mm3 (0.0-0.8); Monocytes % (Auto) 10 % (0-12); Neutrophils # (Auto) 6.5 Thou/mm3 (1.8-7.7); Neutrophils % (Auto) 71 % (37-80); Nucleated Red Blood Cell # 0.00 Thou/mm3 (0.00-0.00); Nucleated Red Blood Cell % 0 /100 WBC (0); Platelet Count 206 Thou/mm3 (140-440); RDW Standard Deviation 43.3 fL (35.1-43.9); Red Blood Count 4.86 Miln/mm3 (4.50-5.90); White Blood Count 9.1 Thou/mm3 (3.8-10.6)
[2025-06-17 12:32] LABS: Carcinoembryonic Antigen 2.4 ng/mL (0.0-5.0)
[2025-06-17 12:33] LABS: Alanine Aminotransferase 34 U/L (10-49); Albumin, Serum 4.0 gm/dL (3.4-4.8); Albumin/Globulin Ratio 1.9 (1.2-2.2); Alkaline Phosphatase 75 U/L (46-116); Anion Gap 11 (7-16); Aspartate Amino Transferase 27 U/L (0-34); BUN/Creatinine Ratio 14 Ratio (12-20); Bilirubin,Total 0.8 mg/dL (0.3-1.2); Blood Urea Nitrogen 17 mg/dL (9-23); Calcium 9.7 mg/dL (8.3-10.6); Calcium (Corrected) 9.7 mg/dL (8.5-10.1); Carbon Dioxide 26.6 mMol/L (20.0-31.0); Chloride 104 mMol/L (98-107); Creatinine (Component) 1.2 mg/dL (0.6-1.3); Globulin 2.1 gm/dL (2.3-3.5); Glucose 130 mg/dL (74-106); Osmolality,Calculated 286 (275-295); Potassium 3.7 mMol/L (3.4-5.1); Sodium 142 mMol/L (136-145); Thyroid Stimulating Hormone 2.28 uIU/mL (0.55-4.78); Total Protein 6.1 gm/dL (5.7-8.2); eGFR > 60 See Note
== END 2025-06-28 23:59 | disposition home or self-care (01) ==
LOC: SCTC 12:57
PROVIDERS: PCP Family Medicine; Referring Provider Family Medicine; Visit Provider Internal Medicine Hematology & Oncology
DX: C43.62 Malignant melanoma of left upper limb, including shoulder (principal); L30.9 Dermatitis, unspecified; D75.1 Secondary polycythemia; R60.0 Localized edema; R42 Dizziness and giddiness
CPT/HCPCS: 36591; 80053; 82378; 84443; 85025; A4216; J1642; J7050; J9271

== ENCOUNTER 2025-06-18 14:01 | Emergency (ER) | payer MEDICARE, OTHER, SELFPAY ==
[2025-06-18 14:03] VITALS: BMI 28.3
[2025-06-18 14:15] VITALS: BP 130/80; PULSE 84; RESP 18; TEMP 36.7; O2SAT 97
--- NOTE | 2025-06-18 14:22 | XR_ITS ---
Examination: CT abdomen and pelvis without contrast. Coronal 3-D reconstructions. Sagittal 2-D reconstructions. Date and time of exam:June 18, 2025, 1727 hours, comparison April 09, 2025 INDICATIONS: Urinary retention today, history kidney stones on April 09, 2025 CT abdomen and pelvis CTDI: vol (mGy): 9.56 DLP: (mGycm): 675 Technique: Axial images of the abdomen have been obtained, 3 mm slice thickness Intravenous contrast material has not been administered. Low dose protocols were performed. One or more of the following dose reduction techniques were used; automated exposure control, adjustment of the mA and/or KV according to patient size, use of iterative reconstruction technique. Findings: No focal liver lesion. Absent gallbladder Spleen not enlarged. No pancreatic or adrenal mass. 1 mm right renal calculus Moderate right hydronephrosis, 6 mm mid right ureteral calculus, this is the same calculus noted on the March 2025 exam 3 mm lower pole left renal calculus Aorta normal size No bowel obstruction No diverticulitis Urinary bladder is contracted around a Zarate catheter, mild prostatomegaly Severe osteopenia with extensive thoracolumbar stabilization IMPRESSION: The patient has the same 6 mm right ureteral calculus producing moderate right hydronephrosis, noted on the April 09, 2025 exam
--- NOTE | 2025-06-18 14:22 | PD.EDRME ---
Rapid Medical Screening Exam RME Arrival date/time: 06/18/25 14:01 79-year-old male presents to the emergency department a complaint of right flank pain and urinary retention patient reports history of kidney stones and similar presentations requiring catheterization Chief Complaint: Urogenital-Male Time Seen by Provider: 06/18/25 18:04 Vital signs: Vital Signs Temperature 98.0 F 06/18/25 14:15 Pulse Rate 84 06/18/25 14:15 Respiratory Rate 18 06/18/25 14:15 Blood Pressure 130/80 06/18/25 14:15 Pulse Oximetry (%) 97 06/18/25 14:15 Oxygen Delivery Method Room Air 06/18/25 14:15
[2025-06-18 15:17] LABS: Basophils # (Auto) 0.0 Thou/mm3 (0.0-0.2); Basophils % (Auto) 0 % (0-2.5); Eosinophils # (Auto) 0.3 Thou/mm3 (0.0-0.5); Eosinophils % (Auto) 3 % (0-10); Hematocrit 42.9 % (41.0-53.0); Hemoglobin 14.7 g/dL (13.5-16.0); Immature Granulocytes Auto 0.04 Thou/mm3 (0.00-0.00); Lymphocytes # (Auto) 1.5 Thou/mm3 (1.0-4.8); Lymphocytes % (Auto) 14 % (10-50); Mean Corpuscular HGB Conc 34.3 g/dl (31.0-37.0); Mean Corpuscular Hemoglobin 31.4 pg (25.0-35.0); Mean Corpuscular Volume 92 fL (80-100); Monocytes # (Auto) 1.0 Thou/mm3 (0.0-0.8); Monocytes % (Auto) 10 % (0-12); Neutrophils # (Auto) 7.8 Thou/mm3 (1.8-7.7); Neutrophils % (Auto) 73 % (37-80); Nucleated Red Blood Cell # 0.00 Thou/mm3 (0.00-0.00); Nucleated Red Blood Cell % 0 /100 WBC (0); Platelet Count 181 Thou/mm3 (140-440); RDW Standard Deviation 42.6 fL (35.1-43.9); Red Blood Count 4.68 Miln/mm3 (4.50-5.90); White Blood Count 10.7 Thou/mm3 (3.8-10.6)
[2025-06-18 15:33] LABS: Alanine Aminotransferase 24 U/L (10-49); Albumin, Serum 3.7 gm/dL (3.4-4.8); Albumin/Globulin Ratio 1.9 (1.2-2.2); Alkaline Phosphatase 73 U/L (46-116); Anion Gap 8 (7-16); Aspartate Amino Transferase 21 U/L (0-34); BUN/Creatinine Ratio 12 Ratio (12-20); Bilirubin,Total 0.6 mg/dL (0.3-1.2); Blood Urea Nitrogen 17 mg/dL (9-23); Calcium 9.4 mg/dL (8.3-10.6); Calcium (Corrected) 9.6 mg/dL (8.5-10.1); Carbon Dioxide 26.7 mMol/L (20.0-31.0); Chloride 104 mMol/L (98-107); Creatinine (Component) 1.4 mg/dL (0.6-1.3); Estimated Creatinine Clearance 52.0 mL/min (>60); Globulin 2.0 gm/dL (2.3-3.5); Glucose 241 mg/dL (74-106); Lipase 27 U/L (12-53); Osmolality,Calculated 287 (275-295); Potassium 4.6 mMol/L (3.4-5.1); Sodium 139 mMol/L (136-145); Total Protein 5.7 gm/dL (5.7-8.2); eGFR 51 See Note
[2025-06-18 17:08] LABS: Collection Type, Urine Clean Catch; Squamous Epithelial Cell,Urine 0 /hpf (0-5)
[2025-06-18 17:46] LABS: Bacteria,Urine Rare; Bilirubin,Urine Negative (Negative); Blood,Urine 2+ (Negative); Clarity,Urine Clear (Clear/Hazy); Color,Urine Yellow (Lt Yel-Yel); Culture Indicated,Urine Not Indicated; Glucose, Urine 3+ (Negative); Ketones,Urine Negative (Negative); Leukocyte Esterase,Urine Negative (Negative); Nitrite,Urine Negative (Negative); PH,Urine 5.5 (5.0-7.0); Protein,Urine Trace (Neg - Trace); RBC,Urine 53 /hpf (0-3); Specific Gravity,Urine 1.025 (1.001-1.035); Urobilinogen,Urine Negative mg/dL (0.0-1.0); WBC,Urine 1 /hpf (0-5)
--- NOTE | 2025-06-18 18:59 | PD.EDMALE ---
ED Male Genitalurinary RME/HPI General Chief complaint: Urogenital-Male Stated complaint: UNABLE TO URINATE SINCE LAST Time Seen by Provider: 06/18/25 18:04 Arrival date/time: 06/18/25 14:01 RME / HPI RME / HPI Narrative: 06/18/25 14:01 79-year-old male presents to the emergency department a complaint of right flank pain and urinary retention patient reports history of kidney stones and similar presentations requiring catheterization See [facility] for Dr. Vu's HPI Documentation. Related Data Home Medications ?Medication ?Instructions ?Recorded ?Confirmed glimepiride 4 mg tablet (Amaryl) 2 mg PO BID ##0 09/23/12 10/13/24 ezetimibe 10 mg tablet (Zetia) 10 mg PO HS 06/24/20 10/13/24 gabapentin 300 mg capsule 300 mg PO BID 06/24/20 10/13/24 hydrochlorothiazide 25 mg tablet 25 mg PO DAILY 06/24/20 10/13/24 cilostazol 100 mg tablet 100 mg PO BID 06/26/24 10/13/24 lisinopril 10 mg tablet 10 mg PO QDAY 06/26/24 10/13/24 pitavastatin calcium 2 mg tablet 2 mg PO QDAY 06/26/24 10/13/24 (Livalo) dapagliflozin propanediol 10 mg 10 mg PO QDAY 10/13/24 10/13/24 tablet (Farxiga) hydrocodone 5 mg-acetaminophen 325 1 tab PO Q4H PRN Pain 10/13/24 10/13/24 mg tablet Previous Rx's ?Medication ?Instructions ?Recorded acetaminophen 300 mg-codeine 30 mg 2 tab PO Q8H PRN pain #20 tabs 06/18/25 tablet ketorolac 10 mg tablet 10 mg PO Q8H PRN pain 5 days #10 06/18/25 tabs ondansetron 4 mg disintegrating 4 mg PO TID PRN nausea and 06/18/25 tablet vomiting 30 days #10 tabs tamsulosin 0.4 mg capsule (Flomax) 0.4 mg PO QDAY 7 days #7 caps 06/18/25 Allergies Allergy/AdvReac Type Severity Reaction Status Date / Time Sulfa (Sulfonamide Allergy Intermediate HIVES Verified 06/18/25 14:06 Antibiotics) empagliflozin (From Allergy Mild Rash Verified 06/18/25 14:06 Jardiance) tetracycline Allergy Unknown Rash Verified 06/18/25 14:06 adhesive tape Allergy Redness of Verified 06/18/25 14:06 Skin Review of Systems Review of Systems Systems Reviewed: All systems reviewed, normal except as documented Past Medical History Past Medical History NEUROLOGIC: Positive Neurological Disorders and Head Trauma CARDIAC: Positive Cardiac Disorders, Coronary Artery Disease, Atherosclerotic Heart Disease, Peripheral Vascular Disease, Hypercholesterolemia, Edema and Hypertension GASTROINTESTINAL: Positive Gastrointestinal Disorders and Gall Bladder Disease GENITOURINARY: Positive Genitourinary Disorders, Renal Disease and Kidney Stones MUSCULOSKELETAL: Positive Musculoskeletal Disorders, Arthritis and Fractures ENT: Positive Cataracts and Head Trauma ENDOCRINE: Positive Endocrine Disorders and Diabetes Mellitus Type 2 PSYCHO/SOCIAL: Positive Depression OTHER HISTORY: Positive Hospitalization, Falls, Chicken Pox, Measles, Mumps and Cancer Family History FAMILY HISTORY: Positive Family Respiratory Disorders, Family Cancer and Family Surgery Surgical History SURGICAL: Positive Cardiac Surgery, Vascular Surgery, Cardiac Catheterization, Angiogram, Eye Surgery, Abdominal Surgery, Amputation and Vasectomy Social History SMOKING STATUS: Former smoker ED Exam Narrative Physical exam: See MDM for Dr. Vu's Physical Exam Documentation. Course Quality Measures none Orders Category Date Time Status Miscellaneous Nursing Order NOW Care 06/18/25 18:[address] abdomen pelvis wo con Stat Exams 06/18/25 14:22 Completed CBC Stat Lab 06/18/25 15:00 Completed Comprehensive Metabolic Panel Stat Lab 06/18/25 15:00 Completed Lipase Stat Lab 06/18/25 15:00 Completed UA, C/S IF [Urinalysis, C/S if Indicated] Stat Lab 06/18/25 17:00 Completed Vital Signs Vital signs: Vital Signs Temperature 98.0 F 06/18/25 14:15 Pulse Rate 84 06/18/25 14:15 Respiratory Rate 18 06/18/25 14:15 Blood Pressure 130/80 06/18/25 14:15 Pulse Oximetry (%) 97 06/18/25 14:15 Oxygen Delivery Method Room Air 06/18/25 14:15 Urogenital - Male MDM Narrative MDM Narrative:: Scribe Attestation: ILucero, am scribing for and in the presence of Dr. Vu. This section includes all my notes and documentations, including HPI, PE, and ED course. Braden Vu MD HPI: 79 y/o male with Hx of Kidney Stones, Renal Disease, and recent Hx of Cystitis presents with several days of right flank pain. Patient started antibiotics for bladder infection 4 days ago. No other complaints. ROS: All negative except as documented in HPI. Physical Exam: General: Alert and oriented. No acute distress when remaining still. Eyes: Conjunctivae and lids clear. ENT: No nasal congestion. Neck: Supple. Heart: RRR. Lungs: No respiratory distress. Good air movement. No rhonchi, wheezing, rales. Abdomen: Soft and nontender. Normal bowel sounds. No distension. No rebound or guarding. Back: No CVA tenderness. Skin: Warm and dry. Neuro: Alert and oriented X 3. I reviewed all diagnostic test results: My review of the CT report is: 6 mm right ureteral calculus. Blood tests and urine tests remarkable for hematuria. At this point, diagnoses include: Right kidney stone. Recommended outpatient care. Based on my best medical judgment, made decision no further evaluation or treatment indicated at this time. Patient understands and agrees to the discharge instructions customized and printed, see below. Discharge Instructions from Dr. Vu: --Your symptoms are due to a 6 mm right kidney stone.? It is outside the kidney.? It is trying to pass into your bladder.? --Increase oral fluid to flush your kidneys.? Maintain clear urine. if it's dark or yellow then increase oral fluid.? If you don't do this, you won't pass it.? --Take Flomax to help decrease spasms to increase the chance of passing it.? --Take Zofran as needed for nausea or vomiting. --Take Ketorolac/Toradol for pain control.? And Tylenol with Codeine.? If you are in severe pain, you won't pass it.?? --Strain your urine so you can catch the stone when you pass it.? --See a private doctor on 02/16/2025 for recheck. Take the stone with you for analysis because certain stones can be prevented.? If you didn't pass it, ask for referral to see urologist.? Who will take the stone out for you. --Seek immediate medical care with fever over 100.4, persistent vomiting despite Zofran, intolerable pain, or with any concerns.?? Braden Vu MD Patient data External records reviewed:: [facility] previous records (04/09/25 13:53 Cystitis) Clinical information provided by:: patient and family (Daughter) Social determinants that could affect healthcare access:: none Patient has the following chronic illnesses:: Coronary Artery Disease, Atherosclerotic Heart Disease, Peripheral Vascular Disease, Hypercholesterolemia, Edema, Hypertension, Gall Bladder Disease, Renal Disease, Arthritis, Cataracts, Diabetes Mellitus Type 2, Depression How is presenting disease/condition affected by chronic disease/condition?: exacerbated by Evaluation data The following diagnostics were reviewed and interpreted by me:: lab results and radiology exam(s) Lab and/or radiology exams considered but not ordered:: None Interpretation Summary: I reviewed all diagnostic test results: My review of the CT report is: 6 mm right ureteral calculus. Blood tests and urine tests remarkable for hematuria. Medications / Prescriptions Medications or Prescriptions considered but not ordered:: None Medication administrations:: None Consultations Consultation(s) initiated? (list below): No Diagnosis Urogenital Male Differential Diagnosis: urinary tract infection, urethritis, epididymitis, prostatitis, acute retention of urine, inguinal hernia and other (Renal calculi, Pyelonephritis, Cystitis) Most likely diagnosis given after review of the tests above:: Right kidney stone Admission Indicated Admission indicated?: not indicated Explain why admission is indicated or not indicated:: With no condition needing emergent intervention, there was no indication for admission. Admission Request Was there a request for admission?: No Disposition Plan Disposition Plan: Discharge Discharge Attestation Discharge Attestation: The patient and all family members were given an opportunity to ask questions and understood the discharge instructions. Discharge instructions specifically effects, indications for sooner follow up or return to the emergency department, and the expected course of current diagnosis. Patient condition: Stable Discharge Plan Plan Patient Disposition: HOME (Self Care) Prescriptions/Referrals Prescriptions/Med Rec: New acetaminophen-codeine 300-30 mg tablet 2 tab PO Q8H MDD 6 PRN (Reason: pain) Qty: 20 0RF ketorolac 10 mg tablet 10 mg PO Q8H PRN (Reason: pain) 5 Days Qty: 10 0RF tamsulosin [Flomax] 0.4 mg capsule 0.4 mg PO QDAY 7 Days Qty: 7 0RF ondansetron 4 mg tablet,disintegrating 4 mg PO TID PRN (Reason: nausea and vomiting) 30 Days Qty: 10 0RF No Action glimepiride [Amaryl] 4 MG tablet 2 mg PO BID Qty: 0 gabapentin 300 mg Capsule 300 mg PO BID hydrochlorothiazide 25 mg Tablet 25 mg PO DAILY ezetimibe [Zetia] 10 mg Tablet 10 mg PO HS cilostazol 100 mg Tablet 100 mg PO BID lisinopril 10 mg Tablet 10 mg PO QDAY pitavastatin calcium [Livalo] 2 mg Tablet 2 mg PO QDAY hydrocodone-acetaminophen 5-325 mg Tablet 1 tab PO Q4H PRN (Reason: Pain) dapagliflozin propanediol [Farxiga] 10 mg Tablet 10 mg PO QDAY Referrals: Julissa Hendrix MD [Primary Care Provider] - In 1 week Problem List Clinical Impression: Right kidney stone Patient/Caregiver Discharge Instructions Discharge Activity: activity as tolerated Education Materials: ED Kidney Stone w/ Colic Additional Instructions: Discharge Instructions from Dr. Vu: --Your symptoms are due to a 6 mm right kidney stone.? It is outside the kidney.? It is trying to pass into your bladder.? --Increase oral fluid to flush your kidneys.? Maintain clear urine. if it's dark or yellow then increase oral fluid.? If you don't do this, you won't pass it.? --Take Flomax to help decrease spasms to increase the chance of passing it.? --Take Zofran as needed for nausea or vomiting. --Take Ketorolac/Toradol for pain control.? And Tylenol with Codeine.? If you are in severe pain, you won't pass it.?? --Strain your urine so you can catch the stone when you pass it.? --See a private doctor on 03/19/25 for recheck. Take the stone with you for analysis because certain stones can be prevented.? If you didn't pass it, ask for referral to see urologist.? Who will take the stone out for you. Unfortunately, this hospital doesn't have Urologist service for the ER. --Seek immediate medical care with fever over 100.4, persistent vomiting despite Zofran, intolerable pain, or with any concerns.?? Print Language: Uzbek Stand Alone Forms: Shannon Award Info., Patient Portal Info Letter
== END 2025-06-18 19:05 | disposition home or self-care (01) ==
PROVIDERS: Nurse Practitioner Primary Care; Emergency Provider Emergency Medicine; PCP Family Medicine
DX: N20.2 Calculus of kidney with calculus of ureter (principal); E78.00 Pure hypercholesterolemia, unspecified; I25.10 Atherosclerotic heart disease of native coronary artery without angina pectoris; E11.51 Type 2 diabetes mellitus with diabetic peripheral angiopathy without gangrene; I10 Essential (primary) hypertension; Z87.442 Personal history of urinary calculi; Z87.891 Personal history of nicotine dependence; Z88.2 Allergy status to sulfonamides; Z88.1 Allergy status to other antibiotic agents; Z88.8 Allergy status to other drugs, medicaments and biological substances; Z91.048 Other nonmedicinal substance allergy status; Z79.899 Other long term (current) drug therapy; Z79.84 Long term (current) use of oral hypoglycemic drugs
CPT/HCPCS: 36415; 74176; 80053; 81001; 83690; 85025; 99282

== ENCOUNTER 2025-07-09 12:48 | Outpatient (RCR) | payer MEDICARE, OTHER, SELFPAY ==
[2025-07-08 15:37] LABS: Basophils # (Auto) 0.1 Thou/mm3 (0.0-0.2); Basophils % (Auto) 1 % (0-2.5); Eosinophils # (Auto) 0.3 Thou/mm3 (0.0-0.5); Eosinophils % (Auto) 2 % (0-10); Hematocrit 41.3 % (41.0-53.0); Hemoglobin 13.7 g/dL (13.5-16.0); Immature Granulocytes Auto 0.12 Thou/mm3 (0.00-0.00); Lymphocytes # (Auto) 1.9 Thou/mm3 (1.0-4.8); Lymphocytes % (Auto) 16 % (10-50); Mean Corpuscular HGB Conc 33.2 g/dl (31.0-37.0); Mean Corpuscular Hemoglobin 30.6 pg (25.0-35.0); Mean Corpuscular Volume 92 fL (80-100); Monocytes # (Auto) 0.9 Thou/mm3 (0.0-0.8); Monocytes % (Auto) 7 % (0-12); Neutrophils # (Auto) 9.1 Thou/mm3 (1.8-7.7); Neutrophils % (Auto) 74 % (37-80); Nucleated Red Blood Cell # 0.00 Thou/mm3 (0.00-0.00); Nucleated Red Blood Cell % 0 /100 WBC (0); Platelet Count 475 Thou/mm3 (140-440); RDW Standard Deviation 44.2 fL (35.1-43.9); Red Blood Count 4.47 Miln/mm3 (4.50-5.90); White Blood Count 12.3 Thou/mm3 (3.8-10.6)
[2025-07-08 15:47] LABS: Glucose Estimated Average 177 mg/dL (80-131); Hemoglobin A1C 7.8 % Hgb (4.8-6.0)
[2025-07-08 15:54] LABS: Alanine Aminotransferase 51 U/L (10-49); Albumin, Serum 3.3 gm/dL (3.4-4.8); Albumin/Globulin Ratio 1.4 (1.2-2.2); Alkaline Phosphatase 121 U/L (46-116); Anion Gap 6 (7-16); Aspartate Amino Transferase 30 U/L (0-34); BUN/Creatinine Ratio 10 Ratio (12-20); Bilirubin,Total 0.6 mg/dL (0.3-1.2); Blood Urea Nitrogen 11 mg/dL (9-23); Calcium 8.7 mg/dL (8.3-10.6); Calcium (Corrected) 9.3 mg/dL (8.5-10.1); Carbon Dioxide 27.7 mMol/L (20.0-31.0); Chloride 104 mMol/L (98-107); Creatinine (Component) 1.1 mg/dL (0.6-1.3); Free T4 (Free Thyroxine) 1.19 ng/dL (0.89-1.76); Globulin 2.4 gm/dL (2.3-3.5); Glucose 155 mg/dL (74-106); Osmolality,Calculated 278 (275-295); Potassium 4.0 mMol/L (3.4-5.1); Sodium 138 mMol/L (136-145); Thyroid Stimulating Hormone 4.98 uIU/mL (0.55-4.78); Total Protein 5.7 gm/dL (5.7-8.2); eGFR > 60 See Note
== END 2025-07-28 23:59 | disposition home or self-care (01) ==
LOC: SCTC 12:48
PROVIDERS: PCP Family Medicine; Referring Provider Family Medicine; Visit Provider Internal Medicine Hematology & Oncology
DX: Z51.12 Encounter for antineoplastic immunotherapy (principal); C43.62 Malignant melanoma of left upper limb, including shoulder; L30.9 Dermatitis, unspecified; D75.1 Secondary polycythemia; G47.30 Sleep apnea, unspecified; R60.0 Localized edema; R42 Dizziness and giddiness
CPT/HCPCS: 36591; 80053; 83036; 84439; 84443; 85025; 96413; A4216; J1642; J3490; J9271

== ENCOUNTER 2025-07-09 14:35 | Emergency (ER) | payer MEDICARE, OTHER, SELFPAY ==
[2025-07-09 14:37] VITALS: BMI 28.7
[2025-07-09 14:50] VITALS: BP 121/71; PULSE 78; RESP 18; TEMP 36.6; O2SAT 99
--- NOTE | 2025-07-09 15:24 | XR_ITS ---
Examination: Venous duplex lower extremity sonogram, bilateral. Date and time of exam: July 09, 2025, 1538 hrs. Indications: Diagnosis malignant normal with bilateral leg swelling beginning one week ago Technique: Multiple sonographic images of the deep venous system have been obtained. B-mode/2-D grayscale imaging of vascular structures and Doppler spectral analysis (waveforms) and color performed Both legs are examined. Findings: Deep venous systems do not demonstrate abnormal echogenicity. All visualized deep veins exhibit compressibility. All visualized deep veins exhibit augmentation. Impression: Negative for deep vein thrombosis
--- NOTE | 2025-07-09 15:27 | PD.EDRME ---
Rapid Medical Screening Exam RME Arrival date/time: 07/09/25 14:35 79-year-old male presents to the emergency department today for complaint of bilateral lower extremity swelling and pain patient is a cancer patient was referred here to rule out DVT Chief Complaint: Extremity Problem,Nontraumatic Time Seen by Provider: 07/09/25 14:58 Vital signs: Vital Signs Temperature 98 F 07/09/25 14:50 Pulse Rate 78 07/09/25 14:50 Respiratory Rate 18 07/09/25 14:50 Blood Pressure 121/71 07/09/25 14:50 Pulse Oximetry (%) 99 07/09/25 14:50 Oxygen Delivery Method Room Air 07/09/25 14:50
[2025-07-09 16:32] LABS: Basophils # (Auto) 0.1 Thou/mm3 (0.0-0.2); Basophils % (Auto) 1 % (0-2.5); Eosinophils # (Auto) 0.2 Thou/mm3 (0.0-0.5); Eosinophils % (Auto) 2 % (0-10); Hematocrit 43.7 % (41.0-53.0); Hemoglobin 14.4 g/dL (13.5-16.0); Immature Granulocytes Auto 0.06 Thou/mm3 (0.00-0.00); Lymphocytes # (Auto) 2.2 Thou/mm3 (1.0-4.8); Lymphocytes % (Auto) 19 % (10-50); Mean Corpuscular HGB Conc 33.0 g/dl (31.0-37.0); Mean Corpuscular Hemoglobin 30.8 pg (25.0-35.0); Mean Corpuscular Volume 93 fL (80-100); Monocytes # (Auto) 0.7 Thou/mm3 (0.0-0.8); Monocytes % (Auto) 6 % (0-12); Neutrophils # (Auto) 8.2 Thou/mm3 (1.8-7.7); Neutrophils % (Auto) 72 % (37-80); Nucleated Red Blood Cell # 0.00 Thou/mm3 (0.00-0.00); Nucleated Red Blood Cell % 0 /100 WBC (0); Platelet Count 429 Thou/mm3 (140-440); RDW Standard Deviation 45.2 fL (35.1-43.9); Red Blood Count 4.68 Miln/mm3 (4.50-5.90); White Blood Count 11.5 Thou/mm3 (3.8-10.6)
[2025-07-09 16:49] LABS: INR 1.1 (0.9-1.3); Partial Thromboplastin Time 24.7 Seconds (22.0-36.0); Prothrombin Time 11.7 Seconds (9.0-12.2)
[2025-07-09 16:55] LABS: Alanine Aminotransferase 44 U/L (10-49); Albumin, Serum 3.6 gm/dL (3.4-4.8); Albumin/Globulin Ratio 1.4 (1.2-2.2); Alkaline Phosphatase 122 U/L (46-116); Anion Gap 8 (7-16); Aspartate Amino Transferase 28 U/L (0-34); BUN/Creatinine Ratio 8 Ratio (12-20); Bilirubin,Total 0.6 mg/dL (0.3-1.2); Blood Urea Nitrogen 10 mg/dL (9-23); Calcium 9.0 mg/dL (8.3-10.6); Calcium (Corrected) 9.3 mg/dL (8.5-10.1); Carbon Dioxide 29.2 mMol/L (20.0-31.0); Chloride 102 mMol/L (98-107); Creatinine (Component) 1.2 mg/dL (0.6-1.3); Estimated Creatinine Clearance 61.0 mL/min (>60); Globulin 2.5 gm/dL (2.3-3.5); Glucose 241 mg/dL (74-106); Osmolality,Calculated 284 (275-295); Potassium 4.2 mMol/L (3.4-5.1); Sodium 139 mMol/L (136-145); Total Protein 6.1 gm/dL (5.7-8.2); eGFR > 60 See Note
[2025-07-09 17:04] LABS: B-Type Natriuretic Peptide 742 pg/mL (0-100)
[2025-07-09 18:18] VITALS: BP 129/85; PULSE 75; RESP 19; TEMP 36.8; O2SAT 99
--- NOTE | 2025-07-09 18:59 | PD.EDEXREM ---
ED Extremity Problem RME/HPI General Chief complaint: Extremity Problem,Nontraumatic Stated complaint: BLE SWELLING, R. LEG IS WORSE Time Seen by Provider: 07/09/25 14:58 Arrival date/time: 07/09/25 14:35 RME / HPI RME / HPI Narrative: 07/09/25 14:35 79-year-old male presents to the emergency department today for complaint of bilateral lower extremity swelling and pain patient is a cancer patient was referred here to rule out DVT DR. RUBIO MAIN ED EVALUATION: Patient referred by oncologist to R/O DVT with Hx of intermittent LE edema, currently right greater than left. Patient indicates edema tends to fluctuate with activity level. No reported pain or redness of ether extremity. No shortness of breath or pleuritic chest pain reported. Patient is undergoing chemotherapy for melanoma. PMH includes melanomaz, recent hospitalization for sepsis UTI secondary to obstructed uropathy and requiring nephrostomy tube of the right kidney. Known CAD, Type II DM and LE edema. SHx includes cholecystectomy, 3 prior back surgeries, and recent right nephrostomy tube placement. Reports allergies to Tetracycline, Sulfa, and Farsega. Social history negative for Tobacco and Alcohol. Related Data Home Medications ?Medication ?Instructions ?Recorded ?Confirmed glimepiride 4 mg tablet (Amaryl) 2 mg PO BID ##0 09/23/12 07/09/25 ezetimibe 10 mg tablet (Zetia) 10 mg PO HS 06/24/20 07/09/25 gabapentin 300 mg capsule 300 mg PO BID 06/24/20 07/09/25 pitavastatin calcium 2 mg tablet 2 mg PO QDAY 06/26/24 07/09/25 (Livalo) hydrocodone 5 mg-acetaminophen 325 1 tab PO Q4H PRN Pain 10/13/24 07/09/25 mg tablet finasteride 5 mg tablet 5 mg PO QDAY 07/09/25 07/09/25 tamsulosin 0.4 mg capsule 0.4 mg PO QHS 07/09/25 07/09/25 Previous Rx's ?Medication ?Instructions ?Recorded furosemide 20 mg tablet (Lasix) 20 mg PO QAM 3 days #10 tabs 07/09/25 potassium chloride 20 mEq oral 20 meq PO QDAY 3 days #30 ea 07/09/25 packet Allergies Allergy/AdvReac Type Severity Reaction Status Date / Time Sulfa (Sulfonamide Allergy Intermediate HIVES Verified 07/09/25 14:37 Antibiotics) empagliflozin (From Allergy Mild Rash Verified 07/09/25 14:37 Jardiance) tetracycline Allergy Unknown Rash Verified 07/09/25 14:37 adhesive tape Allergy Redness of Verified 07/09/25 14:37 Skin Review of Systems Review of Systems Systems Reviewed: All systems reviewed, normal except as documented Past Medical History Past Medical History NEUROLOGIC: Positive Neurological Disorders and Head Trauma CARDIAC: Positive Coronary Artery Disease and Atherosclerotic Heart Disease ENT: Positive Head Trauma ENDOCRINE: Positive Diabetes Mellitus Type 2 ED Exam Narrative Physical exam: GEN. APPEARANCE: The patient is alert awake oriented X-3 in no distress, lying down comfortably, does not look ill/toxic. Patient has good eye contact. Patient is cooperative. VITALS: All vitals were reviewed and the pulse ox is 99% on room air which is normal according to my interpretation. HEENT: Normocephalic, atraumatic. Pupils are equal and reactive. Oral mucosa is moist. Patent Nares NECK: Supple, nontender, no thyromegaly, no meningismus, no JVD, no step offs CHEST: Symmetrical, atraumatic, and with equal expansion , Nontender on palpation no deformity and no crepitus. CARDIOVASCULAR: Heart regular rhythm no murmur or gallop rub or extra beats. LUNGS: Clear to auscultation bilaterally with symmetrical chest rise. No laboring tachypnea or wheezing. No intercostal subcostal retraction. No rales and no rhonchi. ABDOMEN: Soft, flat, nontender to palpation, no guarding or rebound tenderness. There are no abnormal masses palpated. Active and normal bowel sounds. EXTREMITIES: 2+ RLE edema extending from dorsum of the right foot to level of the knee and 1+ on the left, distal function intact, no overlying erythema, no overlying superficial verocosies. No cyanosis. Patient is able to move all 4 extremities well, with full ROM and good CSM. SKIN: Warm and dry, no jaundice or rashes noted. MUSCULOSKELETAL: No lubar or midline bony tenderness. There is no CVA tenderness. No paraspinal muscle spasm or tenderness. NEURO: Patient is SMITH x 4, Cranial nerves II through XII grossly intact. There is no focal neurologic deficits noted. GCS is 15, PNS and [employer] appear grossly intact. PSYCHIATRIC: Patient is in normal mood and affect, cooperative, no SI or HI or hallucinations. Course Quality Measures none Orders Category Date Time Status US venous doppler LE BI Stat Exams 07/09/25 15:24 Completed BNP [B-Type Natriuretic Peptide] Stat Lab 07/09/25 16:18 Completed CBC Stat Lab 07/09/25 16:18 Completed Comprehensive Metabolic Panel Stat Lab 07/09/25 16:18 Completed Partial Thromboplastin Time Stat Lab 07/09/25 16:18 Completed Prothrombin Time with INR Stat Lab 07/09/25 16:18 Completed Vital Signs Vital signs: Vital Signs Temperature 98 F 07/09/25 14:50 Pulse Rate 78 07/09/25 14:50 Respiratory Rate 18 07/09/25 14:50 Blood Pressure 121/71 07/09/25 14:50 Pulse Oximetry (%) 99 07/09/25 14:50 Oxygen Delivery Method Room Air 07/09/25 14:50 Extremity Problem MDM Narrative MDM Narrative:: Scribe Attestation: Lucero Cook, juan m scribing for and in the presence of Dr. Rubio. Provider Notation: Although this document has been carefully reviewed, there may still be some phonetic and other typographical errors. These errors are purely grammatical due to imperfections in the software program and should not be construed in any way to compromise the substance of the patient's medical care during this visit. Patient referred by oncologist to R/O DVT with Hx of intermittent LE edema, currently right greater than left. Patient indicates edema tends to fluctuate with activity level. Please see PE findings. Laboratory markers show elevated WBC with no anemia or thrombocytopenia. Serum chemistries are unremarkable, glucose moderately elevated at 241. UA without evidence of infection. Venous doppler of both LE negative for DVT, suspect dependent edema. Will place patient on a brief course of diuretic with potassium supplement. Close F/U with PMD recommended, additional modalities include elevation of extremities, compression hose, and increase activity throughout the day. Patient data External records reviewed:: [facility] previous records (Reviewed prior ED records from 06/18/25. Patient was seen for Right kidney stone.) Clinical information provided by:: patient Social determinants that could affect healthcare access:: none Patient has the following chronic illnesses:: Type II DM, Coronary Artery Disease and Atherosclerotic Heart Disease How is presenting disease/condition affected by chronic disease/condition?: exacerbated by Evaluation data The following diagnostics were reviewed and interpreted by me:: lab results and radiology exam(s) Lab and/or radiology exams considered but not ordered:: None Interpretation Summary: RADIOLOGY BLE Venous Doppler Study: Findings: Deep venous systems do not demonstrate abnormal echogenicity. All visualized deep veins exhibit compressibility. All visualized deep veins exhibit augmentation. Impression: Negative for deep vein thrombosis Medications / Prescriptions Medications or Prescriptions considered but not ordered:: None Medication administrations:: See above if any Consultations Consultation(s) initiated? (list below): No Diagnosis Extremity Problem Differential Diagnosis: gout, cellulitis, superficial thrombophlebitis, lower extremity edema and deep vein thrombosis of lower extremity Most likely diagnosis given after review of the tests above:: Dependent edema Admission Indicated Admission indicated?: not indicated Explain why admission is indicated or not indicated:: Patient does not meet admission criteria. Admission Request Was there a request for admission?: No Disposition Plan Disposition Plan: Discharge Discharge Attestation Discharge Attestation: The patient and all family members were given an opportunity to ask questions and understood the discharge instructions. Discharge instructions specifically effects, indications for sooner follow up or return to the emergency department, and the expected course of current diagnosis. Patient condition: Stable Discharge Plan Plan Patient Disposition: HOME (Self Care) Discharge Disposition comment: Stable Prescriptions/Referrals Prescriptions/Med Rec: New furosemide [Lasix] 20 mg tablet 20 mg PO QAM 3 Days Qty: 10 0RF potassium chloride 20 mEq packet 20 meq PO QDAY 3 Days Qty: 30 0RF No Action tamsulosin 0.4 mg capsule 0.4 mg PO QHS finasteride 5 mg tablet 5 mg PO QDAY glimepiride [Amaryl] 4 MG tablet 2 mg PO BID Qty: 0 gabapentin 300 mg Capsule 300 mg PO BID ezetimibe [Zetia] 10 mg Tablet 10 mg PO HS pitavastatin calcium [Livalo] 2 mg Tablet 2 mg PO QDAY hydrocodone-acetaminophen 5-325 mg Tablet 1 tab PO Q4H PRN (Reason: Pain) Referrals: Julissa Hendrix MD [Primary Care Provider, Family Practice] - In 1 week Problem List Clinical Impression: Dependent edema Patient/Caregiver Discharge Instructions Discharge Activity: walk with walker only and resume usual activities Other Activity Instructions:: Elevate both lower extremities at night. Diet Instructions: Low-salt Education Materials: Taking a Diuretic, ED Leg Swelling in Both Legs Additional Instructions: Recommend compression hose, increase level of activity. Print Language: Korean Stand Alone Forms: Shannon Award Info., Patient Portal Info Letter
== END 2025-07-09 19:27 | disposition home or self-care (01) ==
PROVIDERS: Nurse Practitioner Primary Care; Emergency Provider Emergency Medicine; PCP Family Medicine
DX: R60.0 Localized edema (principal)
CPT/HCPCS: 36415; 80053; 83880; 85025; 85610; 85730; 93970; 99283

== ENCOUNTER → 2025-07-09 | Outpatient (BNVA) | payer MEDICARE, OTHER, SELFPAY | END | disposition home or self-care (01) | PROVIDERS: PCP Family Medicine; Referring Provider Family Medicine; Visit Provider Urology | DX: N40.1 Benign prostatic hyperplasia with lower urinary tract symptoms (principal); N13.8 Other obstructive and reflux uropathy; R33.8 Other retention of urine; E11.9 Type 2 diabetes mellitus without complications; I25.10 Atherosclerotic heart disease of native coronary artery without angina pectoris; N13.2 Hydronephrosis with renal and ureteral calculous obstruction; Z93.6 Other artificial openings of urinary tract status; I10 Essential (primary) hypertension; E78.00 Pure hypercholesterolemia, unspecified | CPT/HCPCS: 81003; 99212; G0463 ==

== ENCOUNTER → 2025-07-23 | Outpatient (CLI) | payer MEDICARE, OTHER, SELFPAY ==
[2025-07-23 10:06] LABS: Basophils # (Auto) 0.1 Thou/mm3 (0.0-0.2); Basophils % (Auto) 1 % (0-2.5); Eosinophils # (Auto) 0.6 Thou/mm3 (0.0-0.5); Eosinophils % (Auto) 6 % (0-10); Hematocrit 43.9 % (41.0-53.0); Hemoglobin 14.5 g/dL (13.5-16.0); Immature Granulocytes Auto 0.02 Thou/mm3 (0.00-0.00); Lymphocytes # (Auto) 2.3 Thou/mm3 (1.0-4.8); Lymphocytes % (Auto) 24 % (10-50); Mean Corpuscular HGB Conc 33.0 g/dl (31.0-37.0); Mean Corpuscular Hemoglobin 30.9 pg (25.0-35.0); Mean Corpuscular Volume 94 fL (80-100); Monocytes # (Auto) 1.2 Thou/mm3 (0.0-0.8); Monocytes % (Auto) 12 % (0-12); Neutrophils # (Auto) 5.4 Thou/mm3 (1.8-7.7); Neutrophils % (Auto) 57 % (37-80); Nucleated Red Blood Cell # 0.00 Thou/mm3 (0.00-0.00); Nucleated Red Blood Cell % 0 /100 WBC (0); Platelet Count 206 Thou/mm3 (140-440); RDW Standard Deviation 45.6 fL (35.1-43.9); Red Blood Count 4.69 Miln/mm3 (4.50-5.90); White Blood Count 9.6 Thou/mm3 (3.8-10.6)
[2025-07-23 10:19] LABS: Alanine Aminotransferase 22 U/L (10-49); Albumin, Serum 4.0 gm/dL (3.4-4.8); Albumin/Globulin Ratio 1.7 (1.2-2.2); Alkaline Phosphatase 86 U/L (46-116); Anion Gap 9 (7-16); Aspartate Amino Transferase 27 U/L (0-34); BUN/Creatinine Ratio 15 Ratio (12-20); Bilirubin,Total 0.7 mg/dL (0.3-1.2); Blood Urea Nitrogen 17 mg/dL (9-23); Calcium 9.2 mg/dL (8.3-10.6); Calcium (Corrected) 9.2 mg/dL (8.5-10.1); Carbon Dioxide 29.7 mMol/L (20.0-31.0); Carcinoembryonic Antigen 2.0 ng/mL (0.0-5.0); Chloride 103 mMol/L (98-107); Creatinine (Component) 1.1 mg/dL (0.6-1.3); Globulin 2.4 gm/dL (2.3-3.5); Glucose 122 mg/dL (74-106); Osmolality,Calculated 285 (275-295); Potassium 4.6 mMol/L (3.4-5.1); Sodium 142 mMol/L (136-145); Total Protein 6.4 gm/dL (5.7-8.2); eGFR > 60 See Note
== END | disposition home or self-care (01) ==
LOC: SLAB 09:03
PROVIDERS: Referring Provider Internal Medicine Hematology & Oncology; Visit Provider Internal Medicine Hematology & Oncology
DX: C43.62 Malignant melanoma of left upper limb, including shoulder (principal)
CPT/HCPCS: 36415; 80053; 82378; 85025

== ENCOUNTER → 2025-07-24 | Outpatient (CLI) | payer MEDICARE, OTHER, SELFPAY ==
[2025-07-24 15:31] LABS: Collection Type, Urine Catheter; Squamous Epithelial Cell,Urine 0 /hpf (0-5)
[2025-07-24 16:51] LABS: Bacteria,Urine 1+; Bilirubin,Urine Negative (Negative); Blood,Urine 1+ (Negative); Clarity,Urine Turbid (Clear/Hazy); Color,Urine Yellow (Lt Yel-Yel); Glucose, Urine 4+ (Negative); Ketones,Urine Negative (Negative); Leukocyte Esterase,Urine Positive (Negative); Nitrite,Urine Negative (Negative); PH,Urine 6.5 (5.0-7.0); Protein,Urine 1+ (Neg - Trace); RBC,Urine 12 /hpf (0-3); Specific Gravity,Urine 1.010 (1.001-1.035); Urobilinogen,Urine Negative mg/dL (0.0-1.0); WBC,Urine 156 /hpf (0-5)
[2025-07-24 16:53] LABS: Culture Indicated,Urine Yes
== END | disposition home or self-care (01) ==
LOC: SLDO 15:20
PROVIDERS: PCP Family Medicine; Referring Provider Family Medicine; Visit Provider Family Medicine
DX: N13.30 Unspecified hydronephrosis (principal); N39.0 Urinary tract infection, site not specified
CPT/HCPCS: 81001; 87077; 87086; 87186

== ENCOUNTER 2025-07-29 09:20 | Day surgery (SDC) | payer MEDICARE, OTHER, SELFPAY ==
--- NOTE | 2025-07-23 06:40 | EKG_ITS ---
[facility] Test Date: 2025-07-23 Pat Name: TOM ANTHONY Department: Room: - Gender: Male Emergency Room Orderly: LINUS : 1945 Requested By: Dimitrios Manzano Order Number: [id number] Reading MD: Dimitrios Manzano Measurements Intervals [place] Rate: 77 P: 204 IA: 224 QRS: 215 QRSD: 138 T: 36 QT: 407 QTc: 462 Interpretive Statements ECTOPIC ATRIAL RHYTHM WITH FIRST DEGREE AV BLOCK INTRAVENTRICULAR CONDUCTION DELAY [130+ ms QRS DURATION] POSSIBLE RIGHT VENTRICULAR HYPERTROPHY [SOME/ALL OF: PROMINENT R IN V1, LATE TRANSITION, RAD, NANI, SSS] POSSIBLE ANTERIOR MYOCARDIAL INFARCTION , OF INDETERMINATE AGE [30 ms Q WAVE IN V3/V4, OR R < 0.2 mV IN V4] Compared to ECG 10/15/2024 16:46:55 Ectopic atrial rhythm now present Intraventricular conduction delay now present Sinus rhythm no longer present Right bundle-branch block no longer present Left anterior fascicular block no longer present Myocardial infarct finding still present /store/S0/[id number]
[2025-07-23 09:02] VITALS: BMI 28.0
[2025-07-23 10:18] LABS: Alanine Aminotransferase 21 U/L (10-49); Albumin, Serum 4.0 gm/dL (3.4-4.8); Albumin/Globulin Ratio 1.6 (1.2-2.2); Alkaline Phosphatase 86 U/L (46-116); Anion Gap 11 (7-16); Aspartate Amino Transferase 28 U/L (0-34); BUN/Creatinine Ratio 15 Ratio (12-20); Bilirubin,Total 0.7 mg/dL (0.3-1.2); Blood Urea Nitrogen 17 mg/dL (9-23); Calcium 9.2 mg/dL (8.3-10.6); Calcium (Corrected) 9.2 mg/dL (8.5-10.1); Carbon Dioxide 29.5 mMol/L (20.0-31.0); Chloride 102 mMol/L (98-107); Creatinine (Component) 1.1 mg/dL (0.6-1.3); Estimated Creatinine Clearance 65.8 mL/min (>60); Globulin 2.5 gm/dL (2.3-3.5); Glucose 122 mg/dL (74-106); Osmolality,Calculated 285 (275-295); Potassium 4.7 mMol/L (3.4-5.1); Sodium 142 mMol/L (136-145); Total Protein 6.5 gm/dL (5.7-8.2); eGFR > 60 See Note
--- NOTE | 2025-07-28 11:44 | SUR.PREOP ---
Pt notified to come in at 0930 tomorrow.
--- NOTE | 2025-07-28 12:32 | SUR.PREOP ---
Cardiac records reviewed with Dr Manzano.
[2025-07-29] VITALS (8 sets, daily range): BP systolic 103–141; BP diastolic 57–87; PULSE 55–84; RESP 12–14; TEMP 36.3–36.5; O2SAT 97–100; BMI 26.9
[2025-07-29] MEDS: VANCOMYCIN/NS 1 GM IVPB 200 ML IV (10:27)
[2025-07-29] MEDS: RINGERS LACTATED 1000 ML 1,000 ML 20 ML IV (10:27)
--- NOTE | 2025-07-29 11:15 | XR_ITS ---
Examination: Retrograde pyelogram, right with without KUB Fluoroscopy AP abdomen 4 views Date and time: July 29, 2025, 1324 hours INDICATIONS: Ureteral stent insertion today, history kidney stones, moderate right hydronephrosis 6 mm mid right ureteral calculus on CT stone study June 18, 2025 TECHNIQUE AND FINDINGS: 4 spot fluoroscopic films of the abdomen Right percutaneous nephrostomy tube Right ureteral stent satisfactory position Fluoroscopy 58 seconds radiation dose 14.87 milligray IMPRESSION: Retrograde pyelogram as above
--- NOTE | 2025-07-29 14:30 | SUR.PHASEI ---
1430: Pt. AAOx4, vitals stable, breathing unlabored, no complaint of pain or nausea, dressing to right flank CDI, soriano catheter in place draining hematuria, report received from Jaleel ARIAS and Eric SMITH.
--- NOTE | 2025-07-29 14:30 | SUR.PHASEI ---
1430: Blood sugar 89, juice provided to pt.
--- NOTE | 2025-07-29 14:35 | ESOP_ITS ---
Date of Procedure 07/29/25 Pre Op Diagnosis Right hydronephrosis, 8 mm stone proximal ureter right s/p placement of right percutaneous nephrostomy Post Op Diagnosis Same plus obstructive prostate gland plus lot of sediments in the bladder Procedure Cystoscopic examination, bladder irrigation with the Ellik evacuator for removal of the sediments, right retrograde pyelogram , placement of safety wire right and right semirigid ureteroscopy laser stone fragmentation and evaporation stone basketing x 10 placement of right ureteral stent 28 cm long 6 Tanzanian in a retrograde fashion and removal of right nephrostomy tube and insertion of Zarate catheter under fluoroscopic examination Findings Obstructive prostate gland 8 mm stone right proximal ureter plus calcium oxalate monohydrate right hydronephrosis and sediments in the bladder Procedure Description Indication for procedure this is a 79-year-old gentleman this patient had a obstructive stone right proximal ureter had placement of percutaneous nephrostomy done at a different facility. Patient was recommended above procedure procedure and complications were discussed with the patient in great detail informed consent is obtained Patient was brought to the operating room in a satisfactory condition after appropriate premedication he was appropriately identified by surgeon operating room staff site scope and indications of the procedure were reconfirmed with the patient. General anesthesia was given uneventfully. Patient was next positioned in a dorsolithotomy position parts were prepped and draped in the usual sterile fashion 2% lidocaine was instilled into the urethra. 21 cystoscope was used to do the cystourethroscopy. Examination of urethra was without stricture prostatic urethra revealed obstructive prostate gland inside of the bladder and all the quadrant was carried out there was a lot of sediments in the bladder with the Ellik evacuator I was able to washout the bladder. At this time patient received perioperative antibiotics, 20 mg of Lasix IV was administered for prevention of infectious Manav calyceal reflux complications next right ureteral orifice was identified I passed the safety wire right side under fluoroscopic examination in the upper pole calyx right retrograde pyelogram was performed this revealed hydronephrotic right kidney with a stone proximal ureter. Next semirigid ureteroscope was passed into the ureter stone was identified with the laser stone was broken into multiple pieces and stone basketing was done x 10. Next retrograde pyelogram was performed to establish the integrity of the collecting system and ureter no injury was identified. Next right nephrostomy tube was removed over the safety wire I was able to insert 28 cm long 6 Tanzanian double-J stent proximal and curled in the upper pole calyx distal in the bladder. #16 Zarate catheter was inserted balloon was inflated with 10 cc of water patient after having tolerated the procedure well was sent to recovery room in a satisfactory condition he is stable and he will be discharged home to be followed in urology office for removal of the stent in 6 weeks Anesthesia GETA Pathology / specimen Other (Ureteral stone) Estimated Blood Loss 1 Condition Stable Disposition PACU Surgeon Mindy Lee MD Surgical Staff Operation Date: 07/29/25 11:30 Case Staff Anesthesiologist: Juanito Muñoz
--- NOTE | 2025-07-29 15:45 | SUR.PHASEII ---
1545: Pt. AAOx4, vitals stable, breathing unlabored, no complaint of pain or nausea, dressing to right back CDI, no active bleed noted, soriano catheter in place, educated by demonstration to the pt. and his daughter how to clean, drain, empty, and remove soriano catheter, both verbalized understanding. Pt. tolerated sips of water and juice well, pt. ambulated to wheelchair with minimal assist, no complications. Gave discharge instructions to the pt. and his ride, both verbalized they had no further questions. Pt. left with all personal belongings.
== END 2025-07-29 15:45 | disposition home or self-care (01) ==
PROVIDERS: Anesthesiology; PCP Family Medicine; Referring Provider Urology; Visit Provider Urology
PROC: 0TJB8ZZ Inspection of Bladder, Via Natural or Artificial Opening Endoscopic (ICD-10-PCS; CPT 52000; principal; 2025-07-29 11:15)
DX: N13.2 Hydronephrosis with renal and ureteral calculous obstruction (principal); N40.1 Benign prostatic hyperplasia with lower urinary tract symptoms; N13.8 Other obstructive and reflux uropathy; R33.8 Other retention of urine; Z01.810 Encounter for preprocedural cardiovascular examination
CPT/HCPCS: 52352; 52356; 36415; 74420; 80053; 82365; 87077; 87086; 87186; 93005; A4217; A4649; C1769; C1889; C1894; C2617; J1100; J1580; J2371; J2405; J2704; J2765; J3010; J3373; J3490; J7120; A9270

== ENCOUNTER → 2025-08-05 | Outpatient (CLI) | payer MEDICARE, OTHER, SELFPAY ==
[2025-08-05 16:56] LABS: Collection Type, Urine Clean Catch; Squamous Epithelial Cell,Urine 0 /hpf (0-5)
[2025-08-05 17:47] LABS: Bacteria,Urine 2+; Bilirubin,Urine Negative (Negative); Blood,Urine 1+ (Negative); Color,Urine Yellow (Lt Yel-Yel); Glucose, Urine 2+ (Negative); Ketones,Urine Negative (Negative); Leukocyte Esterase,Urine Positive (Negative); Nitrite,Urine Negative (Negative); PH,Urine 6.0 (5.0-7.0); Protein,Urine 1+ (Neg - Trace); RBC,Urine 19 /hpf (0-3); Specific Gravity,Urine 1.015 (1.001-1.035); Urobilinogen,Urine Negative mg/dL (0.0-1.0); WBC,Urine 608 /hpf (0-5)
[2025-08-05 17:51] LABS: Clarity,Urine Hazy (Clear/Hazy)
== END | disposition home or self-care (01) ==
LOC: SLDO 16:53
PROVIDERS: PCP Family Medicine; Referring Provider Family Medicine; Visit Provider Family Medicine
DX: N30.00 Acute cystitis without hematuria (principal)
CPT/HCPCS: 81001; 87077; 87086; 87186

== ENCOUNTER → 2025-08-10 | Outpatient (CLI) | payer MEDICARE, OTHER, SELFPAY ==
[2025-08-10 11:17] LABS: Basophils # (Auto) 0.1 Thou/mm3 (0.0-0.2); Basophils % (Auto) 1 % (0-2.5); Eosinophils # (Auto) 0.5 Thou/mm3 (0.0-0.5); Eosinophils % (Auto) 4 % (0-10); Hematocrit 43.1 % (41.0-53.0); Hemoglobin 14.3 g/dL (13.5-16.0); Immature Granulocytes Auto 0.03 Thou/mm3 (0.00-0.00); Lymphocytes # (Auto) 2.0 Thou/mm3 (1.0-4.8); Lymphocytes % (Auto) 18 % (10-50); Mean Corpuscular HGB Conc 33.2 g/dl (31.0-37.0); Mean Corpuscular Hemoglobin 30.8 pg (25.0-35.0); Mean Corpuscular Volume 93 fL (80-100); Monocytes # (Auto) 1.3 Thou/mm3 (0.0-0.8); Monocytes % (Auto) 12 % (0-12); Neutrophils # (Auto) 7.2 Thou/mm3 (1.8-7.7); Neutrophils % (Auto) 65 % (37-80); Nucleated Red Blood Cell # 0.00 Thou/mm3 (0.00-0.00); Nucleated Red Blood Cell % 0 /100 WBC (0); Platelet Count 260 Thou/mm3 (140-440); RDW Standard Deviation 44.6 fL (35.1-43.9); Red Blood Count 4.64 Miln/mm3 (4.50-5.90); White Blood Count 11.0 Thou/mm3 (3.8-10.6)
[2025-08-10 11:20] LABS: Glucose Estimated Average 183 mg/dL (80-131); Hemoglobin A1C 8.0 % Hgb (4.8-6.0)
[2025-08-10 11:24] LABS: Alanine Aminotransferase 14 U/L (10-49); Albumin, Serum 4.0 gm/dL (3.4-4.8); Albumin/Globulin Ratio 1.7 (1.2-2.2); Alkaline Phosphatase 86 U/L (46-116); Anion Gap 8 (7-16); Aspartate Amino Transferase 16 U/L (0-34); BUN/Creatinine Ratio 17 Ratio (12-20); Bilirubin,Total 0.6 mg/dL (0.3-1.2); Blood Urea Nitrogen 19 mg/dL (9-23); Calcium 9.2 mg/dL (8.3-10.6); Calcium (Corrected) 9.2 mg/dL (8.5-10.1); Carbon Dioxide 28.9 mMol/L (20.0-31.0); Chloride 101 mMol/L (98-107); Creatinine (Component) 1.1 mg/dL (0.6-1.3); Globulin 2.4 gm/dL (2.3-3.5); Glucose 189 mg/dL (74-106); Osmolality,Calculated 282 (275-295); Potassium 4.5 mMol/L (3.4-5.1); Sodium 138 mMol/L (136-145); Total Protein 6.4 gm/dL (5.7-8.2); eGFR > 60 See Note
== END | disposition home or self-care (01) ==
LOC: COPL 10:10
PROVIDERS: PCP Family Medicine; Referring Provider Family Medicine; Visit Provider Family Medicine
DX: E11.22 Type 2 diabetes mellitus with diabetic chronic kidney disease (principal); E11.65 Type 2 diabetes mellitus with hyperglycemia; N18.31 Chronic kidney disease, stage 3a
CPT/HCPCS: 36415; 80053; 83036; 85025

== ENCOUNTER 2025-08-25 07:58 | Outpatient (RCR) | payer MEDICARE, OTHER, SELFPAY ==
--- NOTE | 2025-08-03 01:54 | CTCFLWUP_ITS ---
Patient: TOM MEEKS : 1945 Page 7 of 9 FOLLOW UP NOTE DATE OF SERVICE: 07/30/2025 NAME: TOM MEEKS ACCOUNT: [id number] : 1945 AGE: 79 Patient was seen on a video. Patient consented and proceeded with visit. INTERVAL HISTORY: Tom, a male with stage 2 malignant melanoma diagnosed in 2019, and is on Keytruda . Patient is doing well and here to discuss his CT DNA results. History of Present Illness Tom Meeks, a patient with a history of stage 2 malignant melanoma diagnosed in 2019, presents for follow-up. He is currently undergoing immunotherapy for his melanoma. Patient stopped taking his high blood pressure medications as was having vertigo. Patient follows with PCP The patient mentions struggling with sleep apnea treatment. He attempted to use a CPAP machine but found it uncomfortable and difficult to use, even after trying different masks. One mask caused an open wound on his nose. Due to his frustration with the device, he returned it to the provider. Mr. Meeks has been experiencing eczema, which his elementary school librarian proposed treating with a Kenalog injection. However, there were concerns about potential interactions with his ongoing Keytruda (immunotherapy) treatment. The patient also notes that the immunotherapy seems to be exacerbating his eczema symptoms. 04/06/[address] scan was completely negative he recently visited a skin diver who recommended the aforementioned Kenalog injection for his eczema. The patient continues to struggle with reaching certain areas of his body, particularly his back, for applying topical treatments. 03/29/2025 naterra negative 05/28/2025 naterra negative Medical History - Vertigo, ongoing - Polycythemia, likely from hypoxia - Stage 2 malignant melanoma of left superior upper back - Eczema - Skin cancer at age 19 Surgical History - Shave biopsy of left superior upper back for stage 2 malignant melanoma in 2019 - Biopsy of left axilla lymph node in 2020, inconclusive results Medications and Supplements - Keytruda (immunotherapy) - Hydrochlorothiazide - Discontinued due to possible connection with vertigo/dizziness - Lisinopril - Discontinued due to possible connection with vertigo/dizziness Social History - Living Situation: Lives with spouse - Exercise: Uses a lift chair that lays back, pedals outside - Social Support: Recently had company visiting, has a sister and nephew - Travel: Recently flew from [place] and [place] Review of Systems General: Positive for fatigue. Skin: Positive for eczema. Respiratory: Positive for difficulty using CPAP machine. Cardiovascular: Positive for lower extremity edema. Neurological: Positive for dizziness, vertigo. 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 August 2020: Patent noticed a dark irregular margined lesion in the left upper back. 09/28/2020: Patient had shave biopsy of the lesion from the left superior lateral upper back. 10/19/2020: Wide excision of the left superior lateral upper back? 12/07/2020: PET CT scan? 12/08/2020: left axillary ultrasound? 12/08/2020: Ultrasound of the soft tissue of the left neck? 01/03/2021: Ultrasound-guided biopsy of the left axilla lymph node as well as left submental lymph node? 05/10/2021: Left breast ultrasound? 06/01/2021: PET CT scan? 01/29/2024: CT scan of the brain without contrast? 02/14/2024: PET/CT scan? 04/02/2024: Mr. Meeks had ultrasound-guided percutaneous biopsy of soft tissue mass posterior lateral left shoulder OTHER MEDICAL HISTORY/CONDITIONS: FAMILY HISTORY: SOCIAL HISTORY: MEDICATIONS: 1. cilostazol - 50 mg 1 tab Twice a Day 2. ezetimibe - 10 mg 1 tab Daily 3. Farxiga - 10 mg 1 tab Each Day 4. gabapentin - 300 mg 1 tab Twice a Day 5. glimepiride - 2 mg tab Daily 6. HYDROcodone-acetaminophen - 7.5-325 mg 0.5 tab Twice a Day 7. Keflex - 500 mg Twice a Day 8. Livalo - 2 mg 1 tab Daily 9. triamcinolone acetonide - 0.05 % 1 gm Daily 10. vitamin V-qsnskqjoptps-uwpazan - 500 mg 1 tab Daily Medications Last Reconciled by Julissa Calzada MD on 07/30/2025 ALLERGIES: Medication Allergy SULFADIAZINE Hives Unknown 11/22/2020 Active REVIEW OF SYSTEMS: A complete 14-point review of systems was performed and is negative except as noted in interval history. 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 S/p shave biopsy followed by wide excision. Patient: TOM Maradiaga : 1945 Page 7 of 7 patient is s/p resection of intrasnsit melanoma . . Oligometastatic disease PET CT scan since 02/14/2024) showed 2 lesions in the posterior left shoulder. Biopsy was positive for melanoma. [facility] Dr. Hans De Leon follows patient patient '5 recent PET SCAN shows showed a 15 mm hypermetabolic nodule posterior to the left upper humerus. Left axilla lymph node was not active on pet scan but is palpable It was biopsied in 2020 but was inconclusive I will like the patient to have excisional biopsy of axillary lymph node with his elementary school librarian to make sure it is not melanoma - labs are stable and will proceed with lnnumotherapy - new labs ordered before immunotherapy cont keytruda patient is okay to get and do not need to hold keytruda PET CT scan discussed and have no metastatic disease CT /DNA testing negative Continue Keytruda Eczema Assessment: Patient is experiencing eczema, likely exacerbated by immunotherapy treatment for melanoma. account support specialist recommended Kenalog injection, which was declined due to potential interference with Keytruda (immunotherapy). Plan: - Apply topical steroid ointment to affected areas - Recommend use of herbal oil for massage on eczematous areas, particularly on the back - Instruct family members to assist with application if patient cannot reach affected areas Polycythemia Assessment: Patient has a history of polycythemia, likely secondary to hypoxia. IQRA and EPO were negative. Patient was started on phlebotomy. CPAP was attempted but discontinued due to poor fit and patient discomfort. Elevated hemoglobin levels suggest ongoing nocturnal hypoxia. Plan: - Refer patient back to Dr. Ashby (sleep specialist) to discuss alternative treatment options for sleep apnea - Consider nocturnal oxygen therapy - Educate patient on benefits of oxygen therapy for longevity and cognitive function - Recommend using oxygen while watching TV in the evening if continuous nocturnal use is not tolerated - Continue monitoring hemoglobin levels Peripheral Edema Assessment: Patient reports bilateral foot swelling for the past week, likely exacerbated by prolonged sitting with feet dependent during recent social gatherings and travel. Plan: - Educate patient on elevation of legs, especially when sitting or lying down - Recommend leg exercises: walking feet up the wall while lying on bed - Suggest foot massage for 5 minutes daily - Consider use of vibrating foot massager - Monitor for worsening edema; may consider Lasix if edema persists or worsens Vertigo Resolved RETURN TO CLINIC: I reviewed the diagnosis, prognosis, and recommended treatment/procedure options with the patient (and/or their legal outside sales account representative), including the potential benefits, risks, side effects and alternative therapies. We also discussed the option of no treatment and the possibility of clinical trial participation, if applicable. All questions were addressed, and they demonstrated understanding. They provided informed consent to proceed with the proposed plan of care. BILLING AND COMPLIANCE: I reviewed external records from providers outside my specialty as summarized above. I spent a total of 50 minutes on this patient?s care on the day of their visit excluding time spent related to any billed procedures. This time includes time spent with the patient as well as time spent documenting in the medical record, reviewing patients records and tests, obtaining history, placing orders, communicating with other healthcare professionals, counseling the patient, family or caregiver, and/or care coordination for the diagnoses above. Electronically Signed by: Nick Collins MD T: 1:52 AM CC: Gricelda? PCP: Julissa Kimbrough Referring: Julissa Kimbrough This document was completed utilizing speech recognition software. Grammatical errors, random word insertions, pronoun errors, and incomplete sentences are an occasional consequence of this system due to software limitations, ambient noise, and hardware issues. Any formal questions or concerns about the content, text or information contained within the body of this dictation should be directly addressed to the provider for clarification.
[2025-08-03 16:09] LABS: Basophils # (Auto) 0.0 Thou/mm3 (0.0-0.2); Basophils % (Auto) 0 % (0-2.5); Eosinophils # (Auto) 0.7 Thou/mm3 (0.0-0.5); Eosinophils % (Auto) 7 % (0-10); Hematocrit 41.5 % (41.0-53.0); Hemoglobin 13.9 g/dL (13.5-16.0); Immature Granulocytes Auto 0.04 Thou/mm3 (0.00-0.00); Lymphocytes # (Auto) 2.2 Thou/mm3 (1.0-4.8); Lymphocytes % (Auto) 21 % (10-50); Mean Corpuscular HGB Conc 33.5 g/dl (31.0-37.0); Mean Corpuscular Hemoglobin 30.3 pg (25.0-35.0); Mean Corpuscular Volume 91 fL (80-100); Monocytes # (Auto) 1.1 Thou/mm3 (0.0-0.8); Monocytes % (Auto) 11 % (0-12); Neutrophils # (Auto) 6.2 Thou/mm3 (1.8-7.7); Neutrophils % (Auto) 61 % (37-80); Nucleated Red Blood Cell # 0.00 Thou/mm3 (0.00-0.00); Nucleated Red Blood Cell % 0 /100 WBC (0); Platelet Count 235 Thou/mm3 (140-440); RDW Standard Deviation 42.2 fL (35.1-43.9); Red Blood Count 4.58 Miln/mm3 (4.50-5.90); White Blood Count 10.2 Thou/mm3 (3.8-10.6)
[2025-08-03 16:36] LABS: Alanine Aminotransferase 13 U/L (10-49); Albumin, Serum 3.7 gm/dL (3.4-4.8); Albumin/Globulin Ratio 1.7 (1.2-2.2); Alkaline Phosphatase 82 U/L (46-116); Anion Gap 11 (7-16); Aspartate Amino Transferase 18 U/L (0-34); BUN/Creatinine Ratio 13 Ratio (12-20); Bilirubin,Total 0.5 mg/dL (0.3-1.2); Blood Urea Nitrogen 15 mg/dL (9-23); Calcium 8.5 mg/dL (8.3-10.6); Calcium (Corrected) 8.7 mg/dL (8.5-10.1); Carbon Dioxide 25.1 mMol/L (20.0-31.0); Chloride 102 mMol/L (98-107); Creatinine (Component) 1.2 mg/dL (0.6-1.3); Free T4 (Free Thyroxine) 1.24 ng/dL (0.89-1.76); Globulin 2.2 gm/dL (2.3-3.5); Glucose 172 mg/dL (74-106); Osmolality,Calculated 280 (275-295); Potassium 3.7 mMol/L (3.4-5.1); Sodium 138 mMol/L (136-145); Thyroid Stimulating Hormone 2.86 uIU/mL (0.55-4.78); Total Protein 5.9 gm/dL (5.7-8.2); eGFR > 60 See Note
[2025-08-24 15:21] LABS: Basophils # (Auto) 0.1 Thou/mm3 (0.0-0.2); Basophils % (Auto) 1 % (0-2.5); Eosinophils # (Auto) 0.6 Thou/mm3 (0.0-0.5); Eosinophils % (Auto) 6 % (0-10); Hematocrit 40.9 % (41.0-53.0); Hemoglobin 13.7 g/dL (13.5-16.0); Immature Granulocytes Auto 0.03 Thou/mm3 (0.00-0.00); Lymphocytes # (Auto) 1.9 Thou/mm3 (1.0-4.8); Lymphocytes % (Auto) 19 % (10-50); Mean Corpuscular HGB Conc 33.5 g/dl (31.0-37.0); Mean Corpuscular Hemoglobin 30.4 pg (25.0-35.0); Mean Corpuscular Volume 91 fL (80-100); Monocytes # (Auto) 0.9 Thou/mm3 (0.0-0.8); Monocytes % (Auto) 9 % (0-12); Neutrophils # (Auto) 6.5 Thou/mm3 (1.8-7.7); Neutrophils % (Auto) 64 % (37-80); Nucleated Red Blood Cell # 0.00 Thou/mm3 (0.00-0.00); Nucleated Red Blood Cell % 0 /100 WBC (0); Platelet Count 246 Thou/mm3 (140-440); RDW Standard Deviation 41.7 fL (35.1-43.9); Red Blood Count 4.50 Miln/mm3 (4.50-5.90); White Blood Count 10.1 Thou/mm3 (3.8-10.6)
[2025-08-24 15:43] LABS: Alanine Aminotransferase 24 U/L (10-49); Albumin, Serum 3.9 gm/dL (3.4-4.8); Albumin/Globulin Ratio 2.0 (1.2-2.2); Alkaline Phosphatase 97 U/L (46-116); Anion Gap 12 (7-16); Aspartate Amino Transferase 25 U/L (0-34); BUN/Creatinine Ratio 14 Ratio (12-20); Bilirubin,Total 0.6 mg/dL (0.3-1.2); Blood Urea Nitrogen 18 mg/dL (9-23); Calcium 8.9 mg/dL (8.3-10.6); Calcium (Corrected) 9.0 mg/dL (8.5-10.1); Carbon Dioxide 25.3 mMol/L (20.0-31.0); Chloride 101 mMol/L (98-107); Creatinine (Component) 1.3 mg/dL (0.6-1.3); Free T4 (Free Thyroxine) 1.18 ng/dL (0.89-1.76); Globulin 2.0 gm/dL (2.3-3.5); Glucose 333 mg/dL (74-106); Osmolality,Calculated 290 (275-295); Potassium 4.0 mMol/L (3.4-5.1); Sodium 138 mMol/L (136-145); Thyroid Stimulating Hormone 2.17 uIU/mL (0.55-4.78); Total Protein 5.9 gm/dL (5.7-8.2); eGFR 56 See Note
== END 2025-08-28 23:59 | disposition home or self-care (01) ==
LOC: SCTC 07:58
PROVIDERS: PCP Family Medicine; Referring Provider Family Medicine; Visit Provider Internal Medicine Hematology & Oncology
DX: Z51.12 Encounter for antineoplastic immunotherapy (principal); C43.62 Malignant melanoma of left upper limb, including shoulder; L30.9 Dermatitis, unspecified; D75.1 Secondary polycythemia; R60.0 Localized edema
CPT/HCPCS: 36591; 80053; 84439; 84443; 85025; 96413; 99212; A4216; J1642; J3490; J7040; J9271; G0463

== ENCOUNTER → 2025-09-11 | Outpatient (BNVA) | payer MEDICARE, OTHER, SELFPAY | END | disposition home or self-care (01) | PROVIDERS: PCP Family Medicine; Referring Provider Family Medicine; Visit Provider Urology | DX: N32.89 Other specified disorders of bladder (principal); N32.3 Diverticulum of bladder; N40.1 Benign prostatic hyperplasia with lower urinary tract symptoms; N13.8 Other obstructive and reflux uropathy; Z96.0 Presence of urogenital implants | CPT/HCPCS: 52310; 81003; 96372; A4217; A4649; C1894; J1335; J1580; J3490; A9270 ==

== ENCOUNTER 2025-09-15 14:00 | Outpatient (RCR) | payer MEDICARE, OTHER, SELFPAY ==
[2025-09-14 16:24] LABS: Basophils # (Auto) 0.0 Thou/mm3 (0.0-0.2); Basophils % (Auto) 1 % (0-2.5); Eosinophils # (Auto) 0.5 Thou/mm3 (0.0-0.5); Eosinophils % (Auto) 6 % (0-10); Hematocrit 43.7 % (41.0-53.0); Hemoglobin 14.8 g/dL (13.5-16.0); Immature Granulocytes Auto 0.03 Thou/mm3 (0.00-0.00); Lymphocytes # (Auto) 1.7 Thou/mm3 (1.0-4.8); Lymphocytes % (Auto) 19 % (10-50); Mean Corpuscular HGB Conc 33.9 g/dl (31.0-37.0); Mean Corpuscular Hemoglobin 30.8 pg (25.0-35.0); Mean Corpuscular Volume 91 fL (80-100); Monocytes # (Auto) 0.8 Thou/mm3 (0.0-0.8); Monocytes % (Auto) 9 % (0-12); Neutrophils # (Auto) 5.7 Thou/mm3 (1.8-7.7); Neutrophils % (Auto) 66 % (37-80); Nucleated Red Blood Cell # 0.00 Thou/mm3 (0.00-0.00); Nucleated Red Blood Cell % 0 /100 WBC (0); Platelet Count 252 Thou/mm3 (140-440); RDW Standard Deviation 43.5 fL (35.1-43.9); Red Blood Count 4.80 Miln/mm3 (4.50-5.90); White Blood Count 8.8 Thou/mm3 (3.8-10.6)
[2025-09-14 16:31] LABS: Alanine Aminotransferase 20 U/L (10-49); Albumin, Serum 4.0 gm/dL (3.4-4.8); Albumin/Globulin Ratio 2.0 (1.2-2.2); Alkaline Phosphatase 94 U/L (46-116); Anion Gap 10 (7-16); Aspartate Amino Transferase 22 U/L (0-34); BUN/Creatinine Ratio 15 Ratio (12-20); Bilirubin,Total 0.5 mg/dL (0.3-1.2); Blood Urea Nitrogen 17 mg/dL (9-23); Calcium 9.2 mg/dL (8.3-10.6); Calcium (Corrected) 9.2 mg/dL (8.5-10.1); Carbon Dioxide 26.6 mMol/L (20.0-31.0); Chloride 103 mMol/L (98-107); Creatinine (Component) 1.1 mg/dL (0.6-1.3); Globulin 2.0 gm/dL (2.3-3.5); Glucose 197 mg/dL (74-106); Osmolality,Calculated 285 (275-295); Potassium 3.9 mMol/L (3.4-5.1); Sodium 140 mMol/L (136-145); Thyroid Stimulating Hormone 4.92 uIU/mL (0.55-4.78); Total Protein 6.0 gm/dL (5.7-8.2); eGFR > 60 See Note
== END 2025-09-27 23:59 | disposition home or self-care (01) ==
LOC: SCTC 14:00
PROVIDERS: PCP Family Medicine; Referring Provider Family Medicine; Visit Provider Internal Medicine Hematology & Oncology
DX: Z51.12 Encounter for antineoplastic immunotherapy (principal); C43.62 Malignant melanoma of left upper limb, including shoulder; L30.9 Dermatitis, unspecified; D75.1 Secondary polycythemia; R60.0 Localized edema
CPT/HCPCS: 36591; 80053; 84443; 85025; 96413; A4216; J1642; J3490; J9271

== ENCOUNTER → 2025-10-08 | Outpatient (CLI) | payer MEDICARE, OTHER, SELFPAY ==
[2025-10-08 13:20] LABS: Collection Type, Urine Clean Catch
[2025-10-08 14:17] LABS: Bilirubin,Urine Negative (Negative); Blood,Urine Negative (Negative); Clarity,Urine Clear (Clear/Hazy); Color,Urine Lt-Yellow (Lt Yel-Yel); Glucose, Urine 3+ (Negative); Ketones,Urine Negative (Negative); Leukocyte Esterase,Urine Negative (Negative); Nitrite,Urine Negative (Negative); PH,Urine 6.5 (5.0-7.0); Protein,Urine Negative (Neg - Trace); RBC,Urine < 1 /hpf (0-3); Specific Gravity,Urine 1.013 (1.001-1.035); Squamous Epithelial Cell,Urine < 1 /hpf (0-5); Urobilinogen,Urine Negative mg/dL (0.0-1.0); WBC,Urine < 1 /hpf (0-5)
== END | disposition home or self-care (01) ==
LOC: SLDO 12:56
PROVIDERS: PCP Family Medicine; Referring Provider Family Medicine; Visit Provider Family Medicine
DX: N30.00 Acute cystitis without hematuria (principal)
CPT/HCPCS: 81001; 87086

== ENCOUNTER 2025-10-27 10:56 | Outpatient (RCR) | payer MEDICARE, OTHER, SELFPAY ==
[2025-10-05 16:35] LABS: Basophils # (Auto) 0.0 Thou/mm3 (0.0-0.2); Basophils % (Auto) 0 % (0-2.5); Eosinophils # (Auto) 0.5 Thou/mm3 (0.0-0.5); Eosinophils % (Auto) 5 % (0-10); Hematocrit 41.0 % (41.0-53.0); Hemoglobin 14.1 g/dL (13.5-16.0); Immature Granulocytes Auto 0.04 Thou/mm3 (0.00-0.00); Lymphocytes # (Auto) 2.1 Thou/mm3 (1.0-4.8); Lymphocytes % (Auto) 23 % (10-50); Mean Corpuscular HGB Conc 34.4 g/dl (31.0-37.0); Mean Corpuscular Hemoglobin 31.5 pg (25.0-35.0); Mean Corpuscular Volume 92 fL (80-100); Monocytes # (Auto) 1.0 Thou/mm3 (0.0-0.8); Monocytes % (Auto) 10 % (0-12); Neutrophils # (Auto) 5.7 Thou/mm3 (1.8-7.7); Neutrophils % (Auto) 61 % (37-80); Nucleated Red Blood Cell # 0.00 Thou/mm3 (0.00-0.00); Nucleated Red Blood Cell % 0 /100 WBC (0); Platelet Count 306 Thou/mm3 (140-440); RDW Standard Deviation 44.3 fL (35.1-43.9); Red Blood Count 4.48 Miln/mm3 (4.50-5.90); White Blood Count 9.4 Thou/mm3 (3.8-10.6)
[2025-10-05 16:52] LABS: Alanine Aminotransferase 24 U/L (10-49); Albumin, Serum 3.9 gm/dL (3.4-4.8); Albumin/Globulin Ratio 1.4 (1.2-2.2); Alkaline Phosphatase 83 U/L (46-116); Anion Gap 10 (7-16); Aspartate Amino Transferase 22 U/L (0-34); BUN/Creatinine Ratio 16 Ratio (12-20); Bilirubin,Total 0.5 mg/dL (0.3-1.2); Blood Urea Nitrogen 19 mg/dL (9-23); Calcium 9.1 mg/dL (8.3-10.6); Calcium (Corrected) 9.2 mg/dL (8.5-10.1); Carbon Dioxide 28.0 mMol/L (20.0-31.0); Chloride 102 mMol/L (98-107); Creatinine (Component) 1.2 mg/dL (0.6-1.3); Globulin 2.8 gm/dL (2.3-3.5); Glucose 172 mg/dL (74-106); Osmolality,Calculated 285 (275-295); Potassium 3.9 mMol/L (3.4-5.1); Sodium 140 mMol/L (136-145); Thyroid Stimulating Hormone 2.07 uIU/mL (0.55-4.78); Total Protein 6.7 gm/dL (5.7-8.2); eGFR > 60 See Note
[2025-10-26 14:08] LABS: Basophils # (Auto) 0.1 Thou/mm3 (0.0-0.2); Basophils % (Auto) 0 % (0-2.5); Eosinophils # (Auto) 0.5 Thou/mm3 (0.0-0.5); Eosinophils % (Auto) 4 % (0-10); Hematocrit 42.5 % (41.0-53.0); Hemoglobin 14.0 g/dL (13.5-16.0); Immature Granulocytes Auto 0.04 Thou/mm3 (0.00-0.00); Lymphocytes # (Auto) 2.4 Thou/mm3 (1.0-4.8); Lymphocytes % (Auto) 20 % (10-50); Mean Corpuscular HGB Conc 32.9 g/dl (31.0-37.0); Mean Corpuscular Hemoglobin 29.9 pg (25.0-35.0); Mean Corpuscular Volume 91 fL (80-100); Monocytes # (Auto) 1.0 Thou/mm3 (0.0-0.8); Monocytes % (Auto) 8 % (0-12); Neutrophils # (Auto) 8.2 Thou/mm3 (1.8-7.7); Neutrophils % (Auto) 68 % (37-80); Nucleated Red Blood Cell # 0.00 Thou/mm3 (0.00-0.00); Nucleated Red Blood Cell % 0 /100 WBC (0); Platelet Count 313 Thou/mm3 (140-440); RDW Standard Deviation 43.5 fL (35.1-43.9); Red Blood Count 4.69 Miln/mm3 (4.50-5.90); White Blood Count 12.2 Thou/mm3 (3.8-10.6)
[2025-10-26 14:41] LABS: Alanine Aminotransferase 34 U/L (10-49); Albumin, Serum 4.0 gm/dL (3.4-4.8); Albumin/Globulin Ratio 1.5 (1.2-2.2); Alkaline Phosphatase 88 U/L (46-116); Anion Gap 12 (7-16); Aspartate Amino Transferase 33 U/L (0-34); BUN/Creatinine Ratio 14 Ratio (12-20); Bilirubin,Total 0.3 mg/dL (0.3-1.2); Blood Urea Nitrogen 20 mg/dL (9-23); Calcium 8.9 mg/dL (8.3-10.6); Calcium (Corrected) 8.9 mg/dL (8.5-10.1); Carbon Dioxide 26.5 mMol/L (20.0-31.0); Chloride 104 mMol/L (98-107); Creatinine (Component) 1.4 mg/dL (0.6-1.3); Free T4 (Free Thyroxine) 1.26 ng/dL (0.89-1.76); Globulin 2.7 gm/dL (2.3-3.5); Glucose 219 mg/dL (74-106); Osmolality,Calculated 292 (275-295); Potassium 3.9 mMol/L (3.4-5.1); Sodium 142 mMol/L (136-145); Thyroid Stimulating Hormone 2.18 uIU/mL (0.55-4.78); Total Protein 6.7 gm/dL (5.7-8.2); eGFR 51 See Note
== END 2025-10-28 23:59 | disposition home or self-care (01) ==
LOC: SCTC 10:56
PROVIDERS: PCP Family Medicine; Referring Provider Family Medicine; Visit Provider Internal Medicine Hematology & Oncology
DX: Z51.11 Encounter for antineoplastic chemotherapy (principal); C43.62 Malignant melanoma of left upper limb, including shoulder; L30.9 Dermatitis, unspecified; Z86.2 Personal history of diseases of the blood and blood-forming organs and certain disorders involving the immune mechanism; R60.0 Localized edema
CPT/HCPCS: 36591; 80053; 84439; 84443; 85025; 96413; A4216; J1642; J3490; J7040; J9271